=== PATIENT | female | born 1950 | race Caucasian/White ===

== ENCOUNTER → 2018-04-02 07:17 | Outpatient (CLI) | payer MEDICARE, BC, SELFPAY ==
[2018-04-02 09:26] LABS: Alanine Aminotransferase 31 IU/L (9-52); Albumin 3.9 g/dL (3.5-5.0); Albumin Globulin Ratio 1.2 (1.0-2.8); Alkaline Phosphatase 67 U/L (38-126); Aspartate Aminotransferase 21 IU/L (14-36); Bilirubin Total 0.5 mg/dL (0.2-1.3); Blood Urea Nitrogen 21 mg/dL (7-17); Calcium 9.3 mg/dL (8.4-10.2); Carbon Dioxide 30 mmol/L (22-32); Chloride 102 mmol/L (98-107); Cholesterol 189 mg/dL (140-199); Estimated Glomerular Filt Rate > 60.0 mL/min (>60); Globulin 3.2 g/dL (1.7-4.1); Glucose 87 mg/dL (80-110); HDL Cholesterol 53 mg/dL (40-60); HEMOLYSIS < 15 (0-50); LDL Cholesterol Calculated 107 mg/dL (<100); Potassium 4.2 mmol/L (3.4-5.1); Sodium 141 mmol/L (137-145); Total Protein 7.1 g/dL (6.3-8.2); Triglycerides 147 mg/dL (35-150)
== END ==
PROVIDERS: PCP Family Medicine; Visit Provider Family Medicine
DX: E78.5 Hyperlipidemia, unspecified (principal); M19.90 Unspecified osteoarthritis, unspecified site
CPT/HCPCS: 36415; 80053; 80061

== ENCOUNTER → 2018-09-07 07:58 | Outpatient (CLI) | payer MEDICARE, BC, SELFPAY ==
[2018-09-07 08:49] LABS: Appearance Urine UA CLEAR; Bilirubin Urine UA NEGATIVE (NEGATIVE); Color Urine UA YELLOW; Glucose Urine UA NEGATIVE (Normal); Ketones Urine UA NEGATIVE (NEGATIVE); Leukocyte Esterase Urine UA TRACE (NEGATIVE); Nitrite Urine UA NEGATIVE (Negative); Occult Blood Urine UA NEGATIVE (Negative); Protein Urine UA NEGATIVE (Negative); Specific Gravity Urine UA 1.015 (1.000-1.035); Urobilinogen Urine UA 0.2 E.U./dL (0.2)
[2018-09-07 08:53] LABS: Add Manual Diff / Slide Review NO; Basophils Percent Auto 0.9 % (0-2); Eosinophils Percent Auto 4.5 % (2-4); Hematocrit 37.8 % (36-46); Hemoglobin 12.6 g/dL (12.0-16.0); Lymphocytes Percent Auto 32.2 % (25-40); Mean Corpuscular HGB Conc 33.2 % (30-36); Mean Corpuscular Hemoglobin 29.3 PG (26-34); Mean Corpuscular Volume 88.1 fL (80-100); Monocytes Percent Auto 10.5 % (3-14); Neutrophils Absolute Auto 2500 /uL (3000-5900); Neutrophils Percent Auto 51.9 % (50-75); Platelet Count 300 X10^3/uL (150-400); Red Blood Cell Count 4.29 X10^6/uL (4.0-5.2); Red Cell Distribution Width 13.2 % (11.6-14.8); White Blood Cell Count 4.8 X10^3/uL (4.5-11.0)
[2018-09-07 09:02] LABS: Bacteria Urine Occasional (0-1); Culture Indicated Urine Specimen Cultured; RBC Urine 0-1/HPF (0-5/HPF); Squamous Epithelial Cell Urine 0-1 /HPF; WBC Urine 0-1/HPF (0-5/HPF)
[2018-09-07 09:23] LABS: Alanine Aminotransferase 24 IU/L (9-52); Albumin 3.8 g/dL (3.5-5.0); Albumin Globulin Ratio 1.3 (1.0-2.8); Alkaline Phosphatase 63 U/L (38-126); Aspartate Aminotransferase 20 IU/L (14-36); BUN Creatinine Ratio 27.5 (6-22); Bilirubin Total 0.3 mg/dL (0.2-1.3); Blood Urea Nitrogen 22 mg/dL (7-17); Calcium 9.1 mg/dL (8.4-10.2); Carbon Dioxide 31 mmol/L (22-32); Chloride 105 mmol/L (98-107); Cholesterol 187 mg/dL (140-199); Estimated Glomerular Filt Rate > 60.0 mL/min (>60); Globulin 2.9 g/dL (1.7-4.1); Glucose 88 mg/dL (80-110); HDL Cholesterol 55 mg/dL (40-60); HEMOLYSIS < 15 (0-50); LDL Cholesterol Calculated 111 mg/dL (<100); Potassium 4.6 mmol/L (3.4-5.1); Sodium 142 mmol/L (137-145); Total Protein 6.7 g/dL (6.3-8.2); Triglycerides 104 mg/dL (35-150)
[2018-09-07 09:48] LABS: Thyroid Stimulating Hormone 3.56 uIU/mL (0.47-4.68)
== END ==
PROVIDERS: PCP Family Medicine; Visit Provider Family Medicine
DX: E78.5 Hyperlipidemia, unspecified (principal); I10 Essential (primary) hypertension; Z51.81 Encounter for therapeutic drug level monitoring; E61.1 Iron deficiency
CPT/HCPCS: 36415; 80053; 80061; 81003; 81015; 82728; 84443; 85025; 87086

== ENCOUNTER → 2018-12-16 12:00 | Outpatient (CLI) | payer MEDICARE, BC, SELFPAY ==
--- NOTE | 2018-12-16 | DI.MG.S_ITS ---
BILATERAL DIGITAL SCREENING MAMMOGRAM 3D/2D WITH CAD: 12/16/2018 CLINICAL: Routine screening. Comparison is made to exams dated: 10/13/2017 mammogram, 09/13/2016 mammogram, and 09/12/2015 mammogram - [facility]. The tissue of both breasts is heterogeneously dense. This may lower the sensitivity of mammography. Current study was also evaluated with a Computer Aided Detection (CAD) system. No significant masses, calcifications, or other findings are seen in either breast. IMPRESSION: NEGATIVE There is no mammographic evidence of malignancy. A 1 year screening mammogram is recommended. This exam was interpreted at Station ID: [id number]. NOTE: For mammograms, a report in lay terms will be sent to the patient. Approximately 15% of breast malignancies will not be visualized mammographically. In the management of a palpable breast mass, a negative mammogram must not discourage biopsy of a clinically suspicious lesion. Electronically Signed By: Katelyn ricks/sabrina:12/16/2018 17:48:39 letter sent: Normal Exam ACR BI-RADS Category 1: Negative [id number]
== END ==
PROVIDERS: PCP Family Medicine; Visit Provider Family Medicine
DX: Z12.31 Encounter for screening mammogram for malignant neoplasm of breast (principal)
CPT/HCPCS: 77063; 77067

== ENCOUNTER 2019-02-12 11:15 | Outpatient (RCR) | payer MEDICARE, BC, SELFPAY ==
--- NOTE | 2018-11-03 17:30 | PT.OIE ---
Current Diagnoses Unilateral primary osteoarthritis, left knee (11/03/18) Past Medical History (Last Updated 10/09/18 @ 15:06 by Nelia Bennett) Asthma (Chronic) Benign disease of right breast (Chronic 1999) COPD (chronic obstructive pulmonary disease) (Chronic) Narcolepsy (Chronic) RLS (restless legs syndrome) (Chronic) History of benign breast biopsy (Resolved 05/01/00) Uterine cancer (Resolved ~2004) Past Surgical History (Last Updated 10/09/18 @ 15:06 by Nelia Bennett) History of breast lump/mass excision (Resolved 10/03/10) History of breast lump/mass excision (Resolved ~1999) History of colonoscopy (Resolved 11/25/05) History of tonsillectomy and adenoidectomy (Resolved ~1959) Status post breast lumpectomy (Resolved 2000) Status post hemorrhoidectomy (Resolved) Status post hysterectomy (Resolved 09/09/06) Status post tubal ligation (Resolved) Provider Visit Care Team Role Provider Type Bess Dunn DO Primary Care Provider Physician Specialty: Family Practice Address: [address] [place] [address], [phone] Email: [email or web address] Ashlee Harman PA-C Attending Provider Non-Staff Specialty: Medical Address: [address] [place] [address], [id number] Email: Physical Therapy Initial Evaluation PT-OP-A Visit Information Start: 11/03/18 13:06 Freq: Status: Active Protocol: Document 11/03/18 13:06 [facility] (Rec: 11/03/18 13:40 [facility] [email or web address]) Out-Patient Physical Therapy Visit Information Visit Information Visit Type Initial Evaluation Visit Note Leah is being seen for s/p uni lateral knee replacement on 11/26/2017 for the left knee Visit Start Time 11:15 Visit Stop Time 12:15 Total Visit Minutes 60 Visit Number 1 Evaluation Information Evaluation Date 11/03/18 PT-OP-B Current Condition Start: 11/03/18 13:06 Freq: Status: Active Protocol: Document 11/03/18 13:06 [facility] (Rec: 11/03/18 13:40 [facility] [email or web address]) Current Condition History of Current Condition Onset Date 11/26/2017 Current Complaints c/o swelling, pain, and stiffness s/p left partial knee replacement History of Current Condition left partial knee replacement for the lateral joint was performed on 11/26/[address] Nielsen. Leah went home the same day as surgery. She notes she was given a pamphlet of exercises but has not started doing them. She has not worn her compression stockings x 3 days now and she questions if she should return to wearing them due to a increase in edema in her left leg in the past few days. She is using both a cane for shorter distances and a fww for longer distances. She does have stairs in her house but does not need to use them at this time. Her next doctors appointment is 11/09/18 Treatment Goals Patient/Caregiver Goals to return to full ROM of her left LE, decrease pain, decrease swelling, and improve mobility Current Functional Impairments (Reported) Functional Limitations- ADL's limited in activities that require bending, lifting, walking up and down stairs Functional Limitations- Mobility/Gait limited with mobility and gait , using a spc as well as FWW for assistance PT-OP-C Subjective Start: 11/03/18 13:06 Freq: Status: Active Protocol: Document 11/03/18 13:06 [facility] (Rec: 11/03/18 13:40 [facility] [email or web address]) OP-PT Pain Assessment Pain Assessment Grid Paper Pain Assessment Grid Completed Yes Location left knee Pain Location Details left knee pain and c/o swelling and tightness into the left ankle Intensity 2 Scale Used Numeric (1 - 10) Home Pain Medication Use Pain Medications Used Yes Home Pain Medication Frequency the patient is using both oxycodone and Ibuprofen PT-OP-F Manual Assessment Start: 11/03/18 13:06 Freq: Status: Active Protocol: Document 11/03/18 13:06 [facility] (Rec: 11/03/18 13:40 [facility] [email or web address]) Manual Assessments Soft Tissue Assessment Soft Tissue Mobility Assessment swelling noted from the left knee to the ankle and foot with pitting edema in the left dorsal foot PT-OP-G Mobility & Gait Start: 11/03/18 13:06 Freq: Status: Active Protocol: Document 11/03/18 17:29 [facility] (Rec: 11/03/18 17:30 [facility] [email or web address]) OP Gait Assessment Gait Gait Assistance Required: Independent Assistive Devices Assistive Device Straight Cane Gait Deviations General Gait Pattern Antalgic Decreased Stride Length Flexed Trunk Step-to Gait Factors Limiting Gait Function Factors Limiting Gait Function Decreased Activity Tolerance Decreased Strength Limited Range of Motion Pain Stair Climbing Evaluation Technique/Endurance Stair Climbing Technique Step to Step Comments Stair Climbing Comments pain with stairs PT-OP-K Range of Motion Start: 11/03/18 13:06 Freq: Status: Active Protocol: Document 11/03/18 13:06 [facility] (Rec: 11/03/18 13:40 [facility] [email or web address]) Knee Goniometric Range of Motion Knee Measured in Degrees Right Knee ROM WFL Yes Left Knee ROM WFL No Patient Position Supine Flexion Active (degrees) 50 Flexion Passive (degrees) 75 Extension Active (degrees) 15 Extension Passive (degrees) 12 Knee ROM Limitations Knee ROM Limitations Soft Tissue Tightness Pain Swelling Comments there is 7 cm difference in circumference at the joint line today between left and right knees. 47 cm left and 40 cm right PT-OP-M Strength Start: 11/03/18 13:06 Freq: Status: Active Protocol: Document 11/03/18 13:06 [facility] (Rec: 11/03/18 13:40 [facility] [email or web address]) Knee Strength Knee Manual Muscle Testing Left Flexion (S2) 2+ Poor+ Extension (L3) 2 Poor PT-OP-Q Treatments Start: 11/03/18 13:06 Freq: Status: Active Protocol: Document 11/03/18 13:06 [facility] (Rec: 11/03/18 13:40 [facility] [email or web address]) Therapeutic Exercises Supine Exercises 3 Supine Exercise Name supine ball rolls Side bilateral Reps/Minutes 20 reps Comments pt has a ball at home, ball rolls were easier than heel slides for her 2 Supine Exercise Name heel slides Side left Reps/Minutes 10 reps 1 Supine Exercise Name quad sets Side left Equipment Used towel roll under the knee Reps/Minutes 10 reps holding 5 seconds Sitting Exercises 1 Sitting Exercise Name seated knee flexion and knee extension Side left Reps/Minutes 10 reps each Comments educated in using right leg as a assist for flexion and extension Manual Therapy Treatment Soft Tissue Mobilization 1 Body Location left LE, edema reduction STM with LE elevated Intensity/Depth Superficial Body Position Hooklying PT-OP-R Modalities Start: 11/03/18 13:06 Freq: Status: Active Protocol: Document 11/03/18 13:06 [facility] (Rec: 11/03/18 13:40 [facility] [email or web address]) Hot Pack/Cold Pack Treatment cryo cuff Location left knee Patient Position Hooklying Treatment Duration (minutes) 15 Patient Tolerance Good Comments with LE elevated PT-OP-T Assessment and Plan Start: 11/03/18 13:06 Freq: Status: Active Protocol: Document 11/03/18 17:13 [facility] (Rec: 11/03/18 17:29 [facility] [email or web address]) Physical Therapy Assessment Goals Four Impairment impaired gait Shelter Goal (LTG) The patient is demonstrating an improved gait pattern without use of a assistive device and improved heel strike. She is able to go up and down stairs without pain LTG Duration 6-8 weeks Three Impairment swelling and edema of the left LE from the knee to the foot Short Term Goal (STG) Decrease swelling in the left LE with manual therapy techniques, modalities and ther ex. Currently the left (joint line is 47 cm and the right is 40 cm) STG Duration 4-5 weeks Two Impairment Decreased strength of the left knee Shelter Goal (LTG) Improve strength of the left knee including the ability to fully perform a quad squeeze in full knee extension and the patient is able to demonstrate functional strength of left knee strength with a standing squat LTG Duration 6-8 weeks One Impairment Decreased left knee ROM Short Term Goal (STG) improve ROM of the left knee from where it is now at( 50 AROM and 75 PROM) to 120 deg AROM flexion or better and Leah is able to fully extend her knee to 0 STG Duration 6 weeks
--- NOTE | 2018-11-03 17:51 | PT.OPPOC ---
Current Diagnoses Unilateral primary osteoarthritis, left knee (11/03/18) Provider Visit Care Team Role Provider Type Bess Dunn DO Primary Care Provider Physician Specialty: Family Practice Address: [facility] [place], [address] Email: [email or web address] Ashlee Harman PA-C Attending Provider Non-Staff Specialty: Medical Address: [address] [place] [address], [id number] Email: Plan Of Care PT-OP-T Assessment and Plan Start: 11/03/18 13:06 Freq: Status: Active Protocol: Document 11/03/18 13:06 [facility] (Rec: 11/03/18 17:29 [facility] [email or web address]) Physical Therapy Assessment Goals Four Impairment impaired gait Usp Goal (LTG) The patient is demonstrating an improved gait pattern without use of a assistive device and improved heel strike. She is able to go up and down stairs without pain LTG Duration 6-8 weeks Three Impairment swelling and edema of the left LE from the knee to the foot Short Term Goal (STG) Decrease swelling in the left LE with manual therapy techniques, modalities and ther ex. Currently the left (joint line is 47 cm and the right is 40 cm) STG Duration 4-5 weeks Two Impairment Decreased strength of the left knee Usp Goal (LTG) Improve strength of the left knee including the ability to fully perform a quad squeeze in full knee extension and the patient is able to demonstrate functional strength of left knee strength with a standing squat LTG Duration 6-8 weeks One Impairment Decreased left knee ROM Short Term Goal (STG) improve ROM of the left knee from where it is now at( 50 AROM and 75 PROM) to 120 deg AROM flexion or better and Leah is able to fully extend her knee to 0 STG Duration 6 weeks Assessment Summary Assessment Leah presents to physical therapy today at 8 days s/p her partial knee replacement on her left LE. She is using a spc today but also has her walker with her and has been using the walker when needed. She reports increased left LE swelling the past 2 days and this is concerning to her. She notes she has not yet started back on her usual medications and has questions about restarting her medications. I did advise her to discuss this concern with her doctor. She does have a good amount of swelling in the left LE with some pitting edema in her left foot. She has not been wearing her compression hoes so I did put these on for her today and recommended that she continue to wear them. She has a pamplet of exercises from following surgery however she had not started these yet. She was instructed in ROM exercises today and quadriceps isolations. Her flexion ROM is limited at 50 PROM but I was able to get her to 75 deg flexion after some manual treatment. The goal will be to reduce the swelling, improve ROM and strength. She has a follow up with Dr. Nielsen on 11/09/18. Physical Therapy Plan Frequency and Duration Frequency of Treatment 2x/Week Duration of Treatment 8 Plan of Care Start Date 11/03/18 Plan of Care End Date 12/29/18 Therapeutic Interventions Therapeutic Interventions Gait Training Home Exercise Program Manual Therapy Neuromuscular Re-education Patient/Caregiver Education Self-Care/Home Management Soft Tissue Mobilization Therapeutic Exercises Modalities Cold Pack/Ice Massage Next Visit Focus/Plan Next Note Type Treatment Note Next Visit Plan trial of recumbant bicycle next visit and work to progress knee ROM and strength and decrease swelling Plan of Care Dates Plan of Care Start Date 11/03/18 Plan of Care End Date 12/29/18 Please Sign and Return: I have reviewed this Plan of Care and certify that the skilled therapy services above are required to meet the patient?s needs. Physician Signature Date Printed Name and Credentials Clinical Instructor Signature Printed Name and Credentials
--- NOTE | 2018-11-03 17:52 | PT.OIE ---
Current Diagnoses Unilateral primary osteoarthritis, left knee (11/03/18) Past Medical History (Last Updated 10/09/18 @ 15:06 by Nelia Bennett) Asthma (Chronic) Benign disease of right breast (Chronic 1999) COPD (chronic obstructive pulmonary disease) (Chronic) Narcolepsy (Chronic) RLS (restless legs syndrome) (Chronic) History of benign breast biopsy (Resolved 05/01/00) Uterine cancer (Resolved ~2004) Past Surgical History (Last Updated 10/09/18 @ 15:06 by Nelia Bennett) History of breast lump/mass excision (Resolved 10/03/10) History of breast lump/mass excision (Resolved ~1999) History of colonoscopy (Resolved 11/25/05) History of tonsillectomy and adenoidectomy (Resolved ~1959) Status post breast lumpectomy (Resolved 2000) Status post hemorrhoidectomy (Resolved) Status post hysterectomy (Resolved 09/09/06) Status post tubal ligation (Resolved) Provider Visit Care Team Role Provider Type Bess Dunn DO Primary Care Provider Physician Specialty: Family Practice Address: [address] [place] [address], [id number] Email: [email or web address] Ashlee Harman PA-C Attending Provider Non-Staff Specialty: Medical Address: [address] [place] [address], [id number] Email: Physical Therapy Initial Evaluation PT-OP-A Visit Information Start: 11/03/18 13:06 Freq: Status: Active Protocol: Document 11/03/18 13:06 [facility] (Rec: 11/03/18 13:40 [facility] [email or web address]) Out-Patient Physical Therapy Visit Information Visit Information Visit Type Initial Evaluation Visit Note Leah is being seen for s/p uni lateral knee replacement on 11/26/2017 for the left knee Visit Start Time 11:15 Visit Stop Time 12:15 Total Visit Minutes 60 Visit Number 1 Evaluation Information Evaluation Date 11/03/18 PT-OP-B Current Condition Start: 11/03/18 13:06 Freq: Status: Active Protocol: Document 11/03/18 13:06 [facility] (Rec: 11/03/18 13:40 [facility] [email or web address]) Current Condition History of Current Condition Onset Date 11/26/2017 Current Complaints c/o swelling, pain, and stiffness s/p left partial knee replacement History of Current Condition left partial knee replacement for the lateral joint was performed on 11/26/[address] Nielsen. Leah went home the same day as surgery. She notes she was given a pamplet of exercises but has not started doing them. She has not worn her compression stockings x 3 days now and she questions if she should return to wearing them due to a increase in edema in her left leg in the past few days. She is using both a cane for shorter distances and a fww for longer distances. She does have stairs in her house but does not need to use them at this time. Her next doctors appointment is 11/09/18 Treatment Goals Patient/Caregiver Goals to return to full ROM of her left LE, decrease pain, decrease swelling, and improve mobility Current Functional Impairments (Reported) Functional Limitations- ADL's limited in activies that require bending, lifting, walking up and down stairs Functional Limitations- Mobility/Gait limited with mobility and gait , using a spc as well as FWW for assistance PT-OP-C Subjective Start: 11/03/18 13:06 Freq: Status: Active Protocol: Document 11/03/18 13:06 [facility] (Rec: 11/03/18 13:40 [facility] [email or web address]) OP-PT Pain Assessment Pain Assessment Grid Paper Pain Assessment Grid Completed Yes Location left knee Pain Location Details left knee pain and c/o swelling and tightness into the left ankle Intensity 2 Scale Used Numeric (1 - 10) Home Pain Medication Use Pain Medications Used Yes Home Pain Medication Frequency the patient is using both oxycodone and Ibuprofen PT-OP-F Manual Assessment Start: 11/03/18 13:06 Freq: Status: Active Protocol: Document 11/03/18 13:06 [facility] (Rec: 11/03/18 13:40 [facility] [email or web address]) Manual Assessments Soft Tissue Assessment Soft Tissue Mobility Assessment swelling noted from the left knee to the ankle and foot with pitting edema in the left dorsal foot PT-OP-G Mobility & Gait Start: 11/03/18 13:06 Freq: Status: Active Protocol: Document 11/03/18 17:29 [facility] (Rec: 11/03/18 17:30 [facility] [email or web address]) OP Gait Assessment Gait Gait Assistance Required: Independent Assistive Devices Assistive Device Straight Cane Gait Deviations General Gait Pattern Antalgic Decreased Stride Length Flexed Trunk Step-to Gait Factors Limiting Gait Function Factors Limiting Gait Function Decreased Activity Tolerance Decreased Strength Limited Range of Motion Pain Stair Climbing Evaluation Technique/Endurance Stair Climbing Technique Step to Step Comments Stair Climbing Comments pain with stairs PT-OP-K Range of Motion Start: 11/03/18 13:06 Freq: Status: Active Protocol: Document 11/03/18 13:06 [facility] (Rec: 11/03/18 13:40 [facility] [email or web address]) Knee Goniometric Range of Motion Knee Measured in Degrees Right Knee ROM WFL Yes Left Knee ROM WFL No Patient Position Supine Flexion Active (degrees) 50 Flexion Passive (degrees) 75 Extension Active (degrees) 15 Extension Passive (degrees) 12 Knee ROM Limitations Knee ROM Limitations Soft Tissue Tightness Pain Swelling Comments there is 7 cm difference in circumference at the joint line today between left and right knees. 47 cm left and 40 cm right PT-OP-M Strength Start: 11/03/18 13:06 Freq: Status: Active Protocol: Document 11/03/18 13:06 [facility] (Rec: 11/03/18 13:40 [facility] [email or web address]) Knee Strength Knee Manual Muscle Testing Left Flexion (S2) 2+ Poor+ Extension (L3) 2 Poor PT-OP-Q Treatments Start: 11/03/18 13:06 Freq: Status: Active Protocol: Document 11/03/18 13:06 [facility] (Rec: 11/03/18 13:40 [facility] [email or web address]) Therapeutic Exercises Supine Exercises 3 Supine Exercise Name supine ball rolls Side bilateral Reps/Minutes 20 reps Comments pt has a ball at home, ball rolls were easier than heel slides for her 2 Supine Exercise Name heel slides Side left Reps/Minutes 10 reps 1 Supine Exercise Name quad sets Side left Equipment Used towel roll under the knee Reps/Minutes 10 reps holding 5 seconds Sitting Exercises 1 Sitting Exercise Name seated knee flexion and knee extension Side left Reps/Minutes 10 reps each Comments educated in using right leg as a assist for flexion and extension Manual Therapy Treatment Soft Tissue Mobilization 1 Body Location left LE, edema reduction STM with LE elevated Intensity/Depth Superficial Body Position Hooklying PT-OP-R Modalities Start: 11/03/18 13:06 Freq: Status: Active Protocol: Document 11/03/18 13:06 [facility] (Rec: 11/03/18 13:40 [facility] [email or web address]) Hot Pack/Cold Pack Treatment cryo cuff Location left knee Patient Position Hooklying Treatment Duration (minutes) 15 Patient Tolerance Good Comments with LE elevated PT-OP-T Assessment and Plan Start: 11/03/18 13:06 Freq: Status: Active Protocol: Document 11/03/18 13:06 [facility] (Rec: 11/03/18 17:29 [facility] [email or web address]) Physical Therapy Assessment Goals Four Impairment impaired gait Half-Way Goal (LTG) The patient is demonstrating an improved gait pattern without use of a assistive device and improved heel strike. She is able to go up and down stairs without pain LTG Duration 6-8 weeks Three Impairment swelling and edema of the left LE from the knee to the foot Short Term Goal (STG) Decrease swelling in the left LE with manual therapy techniques, modalities and ther ex. Currently the left (joint line is 47 cm and the right is 40 cm) STG Duration 4-5 weeks Two Impairment Decreased strength of the left knee Fiscal Accountant Goal (LTG) Improve strength of the left knee including the ability to fully perform a quad squeeze in full knee extension and the patient is able to demonstrate functional strengh of left knee strength with a standing squat LTG Duration 6-8 weeks One Impairment Decreased left knee ROM Short Term Goal (STG) improve ROM of the left knee from where it is now at( 50 AROM and 75 PROM) to 120 deg AROM flexion or better and Leah is able to fully extend her knee to 0 STG Duration 6 weeks Assessment Summary Assessment Leah presents to physical therapy today at 8 days s/p her partial knee replacement on her left LE. She is using a spc today but also has her walker with her and has been using the walker when needed. She reports increased left LE swelling the past 2 days and this is concerning to her. She notes she has not yet started back on her usual medications and has questions about restarting her medications. I did advise her to discuss this concern with her doctor. She does have a good amount of swelling in the left LE with some pitting edema in her left foot. She has not been wearing her compression hoes so I did put these on for her today and recommended that she continue to wear them. She has a pamphlet of exercises from following surgery however she had not started these yet. She was instructed in ROM exercises today and quadriceps isolations. Her flexion ROM is limited at 50 PROM but I was able to get her to 75 deg flexion after some manual treatment. The goal will be to reduce the swelling, improve ROM and strength. She has a follow up with Dr. Nielsen on 11/09/18. Physical Therapy Plan Frequency and Duration Frequency of Treatment 2x/Week Duration of Treatment 8 Plan of Care Start Date 11/03/18 Plan of Care End Date 12/29/18 Therapeutic Interventions Therapeutic Interventions Gait Training Home Exercise Program Manual Therapy Neuromuscular Re-education Patient/Caregiver Education Self-Care/Home Management Soft Tissue Mobilization Therapeutic Exercises Modalities Cold Pack/Ice Massage Next Visit Focus/Plan Next Note Type Treatment Note Next Visit Plan trial of recumbant bicycle next visit and work to progress knee ROM and strength and decrease swelling
--- NOTE | 2018-11-06 12:32 | PT.OTN ---
Current Diagnoses Unilateral primary osteoarthritis, left knee (11/06/18) Physical Therapy Treatment Note PT-OP-A Visit Information Start: 11/03/18 13:06 Freq: Status: Active Protocol: Document 11/06/18 11:20 LRN (Rec: 11/06/18 12:31 LRN [id number]) Out-Patient Physical Therapy Visit Information Visit Information Visit Type Treatment Note Visit Note Leah is being seen for s/p uni lateral knee replacement on 11/26/2017 for the left knee Visit Start Time 11:20 Visit Stop Time 12:15 Total Visit Minutes 55 Visit Number 2 Number of MH TEACHER Visits 0 Evaluation Information Evaluation Date 11/03/18 PT-OP-B Current Condition Start: 11/03/18 13:06 Freq: Status: Active Protocol: Document 11/03/18 13:06 [facility] (Rec: 11/03/18 13:40 [facility] [email or web address]) Current Condition History of Current Condition Onset Date 11/26/2017 Current Complaints c/o swelling, pain, and stiffness s/p left partial knee replacement History of Current Condition left partial knee replacement for the lateral joint was performed on 11/26/[address] Nielsen. Leah went home the same day as surgery. She notes she was given a pamplet of exercises but has not started doing them. She has not worn her compression stockings x 3 days now and she questions if she should return to wearing them due to a increase in edema in her left leg in the past few days. She is using both a cane for shorter distances and a fww for longer distances. She does have stairs in her house but does not need to use them at this time. Her next doctors appointment is 11/09/18 Treatment Goals Patient/Caregiver Goals to return to full ROM of her left LE, decrease pain, decrease swelling, and improve mobility Current Functional Impairments (Reported) Functional Limitations- ADL's limited in activities that require bending, lifting, walking up and down stairs Functional Limitations- Mobility/Gait limited with mobility and gait , using a spc as well as FWW for assistance PT-OP-C Subjective Start: 11/03/18 13:06 Freq: Status: Active Protocol: Document 11/06/18 11:20 LRN (Rec: 11/06/18 12:31 LRN [id number]) OP-PT Subjective Patient Comments Patient Comments States she is functioning better, has more flexibility. Having constipation issues. R hip/thigh laterally has numbness and the hip is bothering her. PT-OP-F Manual Assessment Start: 11/03/18 13:06 Freq: Status: Active Protocol: Document 11/03/18 13:06 [facility] (Rec: 11/03/18 13:40 [facility] [email or web address]) Manual Assessments Soft Tissue Assessment Soft Tissue Mobility Assessment swelling noted from the left knee to the ankle and foot with pitting edema in the left dorsal foot PT-OP-G Mobility & Gait Start: 11/03/18 13:06 Freq: Status: Active Protocol: Document 11/03/18 17:29 [facility] (Rec: 11/03/18 17:30 [facility] [email or web address]) OP Gait Assessment Gait Gait Assistance Required: Independent Assistive Devices Assistive Device Straight Cane Gait Deviations General Gait Pattern Antalgic Decreased Stride Length Flexed Trunk Step-to Gait Factors Limiting Gait Function Factors Limiting Gait Function Decreased Activity Tolerance Decreased Strength Limited Range of Motion Pain Stair Climbing Evaluation Technique/Endurance Stair Climbing Technique Step to Step Comments Stair Climbing Comments pain with stairs PT-OP-K Range of Motion Start: 11/03/18 13:06 Freq: Status: Active Protocol: Document 11/06/18 11:20 LRN (Rec: 11/06/18 12:31 LRN [id number]) Knee Goniometric Range of Motion Knee Measured in Degrees Left Patient Position Supine Flexion Active (degrees) 70 Flexion Passive (degrees) 80 PT-OP-M Strength Start: 11/03/18 13:06 Freq: Status: Active Protocol: Document 11/03/18 13:06 [facility] (Rec: 11/03/18 13:40 [facility] [email or web address]) Knee Strength Knee Manual Muscle Testing Left Flexion (S2) 2+ Poor+ Extension (L3) 2 Poor PT-OP-Q Treatments Start: 11/03/18 13:06 Freq: Status: Active Protocol: Document 11/06/18 11:20 LRN (Rec: 11/06/18 12:31 LRN [id number]) Therapeutic Exercises Supine Exercises 4 Supine Exercise Name Lymph ex for s/p TKA Side left Reps/Minutes 10x each motion 3 Supine Exercise Name supine ball rolls Side bilateral Reps/Minutes 20 reps Comments pt has a ball at home, ball rolls were easier than heel slides for her 2 Supine Exercise Name heel slides Side left Reps/Minutes 10 reps 1 Supine Exercise Name quad sets Side left Equipment Used towel roll under the knee Reps/Minutes 10 reps holding 5 seconds Sitting Exercises 1 Sitting Exercise Name seated knee flexion and knee extension Side left Reps/Minutes 10 reps each Comments educated in using right leg as a assist for flexion and extension Manual Therapy Treatment Soft Tissue Mobilization 1 Body Location left LE, edema reduction STM with LE elevated Intensity/Depth Superficial Body Position Hooklying Self-Care/Home Management Treatment Education Patient Education Home Exercise Program Activities Self-Care/Home Management Activities Issued & reviewed HEP of lymph ex's PT-OP-R Modalities Start: 11/03/18 13:06 Freq: Status: Active Protocol: Document 11/06/18 11:20 LRN (Rec: 11/06/18 12:31 LRN [id number]) Hot Pack/Cold Pack Treatment cryo cuff Location left knee Patient Position Hooklying Treatment Duration (minutes) 15 Patient Tolerance Good Comments with LE elevated PT-OP-T Assessment and Plan Start: 11/03/18 13:06 Freq: Status: Active Protocol: Document 11/06/18 11:20 LRN (Rec: 11/06/18 12:31 LRN [id number]) Physical Therapy Assessment Assessment Summary Assessment Pt is progressing well on her s/p TKA rehab with an increase in knee flex to 80 deg's passively. She had not worn her compressive stocking today . Her LLE was swollen; therefore held use of bike to start, started with massage for edema reduction. Physical Therapy Plan Frequency and Duration Frequency of Treatment 2x/Week Duration of Treatment 8 Plan of Care Start Date 11/03/18 Plan of Care End Date 12/29/18 Next Visit Focus/Plan Next Note Type Treatment Note Next Visit Plan Try recumbent bike to start. Review HEP last issued. Progress knee ROM, strength and decreased swelling. Add gait training.
--- NOTE | 2018-11-10 12:38 | PT.OTN ---
Current Diagnoses Unilateral primary osteoarthritis, left knee (11/10/18) Physical Therapy Treatment Note PT-OP-A Visit Information Start: 11/03/18 13:06 Freq: Status: Active Protocol: Document 11/10/18 12:17 [facility] (Rec: 11/10/18 12:38 [facility] [email or web address]) Out-Patient Physical Therapy Visit Information Visit Information Visit Type Treatment Note Visit Start Time 11:15 Visit Stop Time 12:15 Total Visit Minutes 60 Visit Number 3 Number of CRITICAL CARE PHYSICIAN Visits 0 Evaluation Information Evaluation Date 11/03/18 PT-OP-B Current Condition Start: 11/03/18 13:06 Freq: Status: Active Protocol: Document 11/03/18 13:06 [facility] (Rec: 11/03/18 13:40 [facility] [email or web address]) Current Condition History of Current Condition Onset Date 11/26/2017 Current Complaints c/o swelling, pain, and stiffness s/p left partial knee replacement History of Current Condition left partial knee replacement for the lateral joint was performed on 11/26/[address] Nielsen. Leah went home the same day as surgery. She notes she was given a pamplet of exercises but has not started doing them. She has not worn her compression stockings x 3 days now and she questions if she should return to wearing them due to a increase in edema in her left leg in the past few days. She is using both a cane for shorter distances and a fww for longer distances. She does have stairs in her house but does not need to use them at this time. Her next doctors appointment is 11/09/18 Treatment Goals Patient/Caregiver Goals to return to full ROM of her left LE, decrease pain, decrease swelling, and improve mobility Current Functional Impairments (Reported) Functional Limitations- ADL's limited in activies that require bending, lifting, walking up and down stairs Functional Limitations- Mobility/Gait limited with mobility and gait , using a spc as well as FWW for assistance PT-OP-C Subjective Start: 11/03/18 13:06 Freq: Status: Active Protocol: Document 11/10/18 12:17 [facility] (Rec: 11/10/18 12:38 [facility] [email or web address]) OP-PT Subjective Patient Comments Patient Comments Leah notes her knee is doing much better over all and she is over the constipation issues. She is noting right sided Low back and hip discomfort though PT-OP-F Manual Assessment Start: 11/03/18 13:06 Freq: Status: Active Protocol: Document 11/03/18 13:06 [facility] (Rec: 11/03/18 13:40 [facility] [email or web address]) Manual Assessments Soft Tissue Assessment Soft Tissue Mobility Assessment swelling noted from the left knee to the ankle and foot with pitting edema in the left dorsal foot PT-OP-G Mobility & Gait Start: 11/03/18 13:06 Freq: Status: Active Protocol: Document 11/03/18 17:29 [facility] (Rec: 11/03/18 17:30 [facility] [email or web address]) OP Gait Assessment Gait Gait Assistance Required: Independent Assistive Devices Assistive Device Straight Cane Gait Deviations General Gait Pattern Antalgic Decreased Stride Length Flexed Trunk Step-to Gait Factors Limiting Gait Function Factors Limiting Gait Function Decreased Activity Tolerance Decreased Strength Limited Range of Motion Pain Stair Climbing Evaluation Technique/Endurance Stair Climbing Technique Step to Step Comments Stair Climbing Comments pain with stairs PT-OP-K Range of Motion Start: 11/03/18 13:06 Freq: Status: Active Protocol: Document 11/06/18 11:20 LRN (Rec: 11/06/18 12:31 LRN [id number]) Knee Goniometric Range of Motion Knee Measured in Degrees Left Patient Position Supine Flexion Active (degrees) 70 Flexion Passive (degrees) 80 PT-OP-M Strength Start: 11/03/18 13:06 Freq: Status: Active Protocol: Document 11/03/18 13:06 [facility] (Rec: 11/03/18 13:40 [facility] [email or web address]) Knee Strength Knee Manual Muscle Testing Left Flexion (S2) 2+ Poor+ Extension (L3) 2 Poor PT-OP-Q Treatments Start: 11/03/18 13:06 Freq: Status: Active Protocol: Document 11/10/18 12:17 [facility] (Rec: 11/10/18 12:38 [facility] [email or web address]) Cardio Equipment Bicycle (Upright) Duration (Minutes) 8 Resistance 0 Seat Position 4 Other able to make full resolution forward and back Therapeutic Exercises Supine Exercises 6 Supine Exercise Name bridges Reps/Minutes 3 x 10 reps 5 Supine Exercise Name SLR Reps/Minutes 3 x 10 reps 3 Supine Exercise Name supine ball rolls Side bilateral Reps/Minutes 20 reps Comments pt has a ball at home, ball rolls were easier than heel slides for her 2 Supine Exercise Name heel slides Side left Reps/Minutes 10 reps 1 Supine Exercise Name quad sets Side left Equipment Used towel roll under the knee Reps/Minutes 10 reps holding 5 seconds Prone Exercises 1 Prone Exercise Name prone knee flexion Reps/Minutes x 10 reps Comments pt stayed in the prone position for manual stretching following the exercis Sitting Exercises 1 Sitting Exercise Name seated knee flexion and knee extension Side left Reps/Minutes 10 reps each Comments educated in using right leg as a assist for flexion and extension Gait Training Gait Activity 1 Description gait training with single point cane in right hand Manual Therapy Treatment Soft Tissue Mobilization 2 Body Location prone quad stretch, manual ITB release Comments manual stretching into flexion in prone and manual release for the ITB PT-OP-R Modalities Start: 11/03/18 13:06 Freq: Status: Active Protocol: Document 11/10/18 12:17 [facility] (Rec: 11/10/18 12:38 [facility] [email or web address]) Hot Pack/Cold Pack Treatment cryo cuff Location left knee Patient Position Hooklying Treatment Duration (minutes) 15 Patient Tolerance Good Comments with LE elevated PT-OP-T Assessment and Plan Start: 11/03/18 13:06 Freq: Status: Active Protocol: Document 11/10/18 12:17 [facility] (Rec: 11/10/18 12:38 [facility] [email or web address]) Physical Therapy Assessment Assessment Summary Assessment improved flexion to 95 degress today and 5 degress extension at the end of treatment. Able to make a full resolution on the upright bike and tolerate manual stretching in prone. Reviewed gait with spc today as her right hip has been bothering her. Physical Therapy Plan Frequency and Duration Frequency of Treatment 2x/Week Duration of Treatment 8 Plan of Care Start Date 11/03/18 Plan of Care End Date 12/29/18 Therapeutic Interventions Therapeutic Interventions Gait Training Home Exercise Program Manual Therapy Neuromuscular Re-education Patient/Caregiver Education Self-Care/Home Management Soft Tissue Mobilization Therapeutic Exercises Modalities Cold Pack/Ice Massage Next Visit Focus/Plan Next Note Type Treatment Note Next Visit Plan bike, upright was tolerated well, begin shuttle and continue to progress ROM, strength and decreased swelling
--- NOTE | 2018-11-20 12:06 | PT.OTN ---
Current Diagnoses Unilateral primary osteoarthritis, left knee (11/20/18) Physical Therapy Treatment Note PT-OP-A Visit Information Start: 11/03/18 13:06 Freq: Status: Active Protocol: Document 11/20/18 10:39 [facility] (Rec: 11/20/18 12:04 LRN [id number]) Out-Patient Physical Therapy Visit Information Visit Information Visit Type Treatment Note Visit Start Time 10:39 Visit Stop Time 11:36 Total Visit Minutes 57 Visit Number 4 Number of LINOLEUM LAYER Visits 0 Evaluation Information Evaluation Date 11/03/18 PT-OP-B Current Condition Start: 11/03/18 13:06 Freq: Status: Active Protocol: Document 11/03/18 13:06 [facility] (Rec: 11/03/18 13:40 [facility] [email or web address]) Current Condition History of Current Condition Onset Date 11/26/2017 Current Complaints c/o swelling, pain, and stiffness s/p left partial knee replacement History of Current Condition left partial knee replacement for the lateral joint was performed on 11/26/[address] Nielsen. Leah went home the same day as surgery. She notes she was given a pamplet of exercises but has not started doing them. She has not worn her compression stockings x 3 days now and she questions if she should return to wearing them due to a increase in edema in her left leg in the past few days. She is using both a cane for shorter distances and a fww for longer distances. She does have stairs in her house but does not need to use them at this time. Her next doctors appointment is 11/09/18 Treatment Goals Patient/Caregiver Goals to return to full ROM of her left LE, decrease pain, decrease swelling, and improve mobility Current Functional Impairments (Reported) Functional Limitations- ADL's limited in activies that require bending, lifting, walking up and down stairs Functional Limitations- Mobility/Gait limited with mobility and gait , using a spc as well as FWW for assistance PT-OP-C Subjective Start: 11/03/18 13:06 Freq: Status: Active Protocol: Document 11/20/18 10:39 [facility]N (Rec: 11/20/18 12:04 LRN [id number]) OP-PT Subjective Patient Comments Patient Comments States after the last session she couldn't walk the next day due to primarily R groin and hip. PT-OP-F Manual Assessment Start: 11/03/18 13:06 Freq: Status: Active Protocol: Document 11/03/18 13:06 [facility] (Rec: 11/03/18 13:40 [facility] [email or web address]) Manual Assessments Soft Tissue Assessment Soft Tissue Mobility Assessment swelling noted from the left knee to the ankle and foot with pitting edema in the left dorsal foot PT-OP-G Mobility & Gait Start: 11/03/18 13:06 Freq: Status: Active Protocol: Document 11/03/18 17:29 [facility] (Rec: 11/03/18 17:30 [facility] [email or web address]) OP Gait Assessment Gait Gait Assistance Required: Independent Assistive Devices Assistive Device Straight Cane Gait Deviations General Gait Pattern Antalgic Decreased Stride Length Flexed Trunk Step-to Gait Factors Limiting Gait Function Factors Limiting Gait Function Decreased Activity Tolerance Decreased Strength Limited Range of Motion Pain Stair Climbing Evaluation Technique/Endurance Stair Climbing Technique Step to Step Comments Stair Climbing Comments pain with stairs PT-OP-K Range of Motion Start: 11/03/18 13:06 Freq: Status: Active Protocol: Document 11/06/18 11:20 [facility]N (Rec: 11/06/18 12:31 LRN [id number]) Knee Goniometric Range of Motion Knee Measured in Degrees Left Patient Position Supine Flexion Active (degrees) 70 Flexion Passive (degrees) 80 PT-OP-M Strength Start: 11/03/18 13:06 Freq: Status: Active Protocol: Document 11/03/18 13:06 [facility] (Rec: 11/03/18 13:40 [facility] [email or web address]) Knee Strength Knee Manual Muscle Testing Left Flexion (S2) 2+ Poor+ Extension (L3) 2 Poor PT-OP-Q Treatments Start: 11/03/18 13:06 Freq: Status: Active Protocol: Document 11/20/18 10:39 LRN (Rec: 11/20/18 12:04 LRN [id number]) Therapeutic Exercises Supine Exercises BKFO Side bilateral Resistance Lev 2 Equipment Used T-Band Reps/Minutes 3' 5 Supine Exercise Name See sitting knee ext ex 2 Supine Exercise Name See seated knee flexion Sitting Exercises knee flex/ex strengthening Sitting Exercise Name Abraham knee ext Resistance Lev 2 T-Band Reps/Minutes 20 x 1 Sitting Exercise Name seated knee flexion stretch Side bilateral Reps/Minutes 10 reps each Comments Shifting hips forward with feet on ground Therapeutic Activity Therapeutic Activity Postural training Name Transferring up/down from ex equipment & sitting Comments Training for core stabilization. Transfer training Name Sup>Sit>Stand, Rolling Comments Focus on core stabilization Manual Therapy Treatment Joint Mobilizations Lumbar Joint L3-L5 Direction L rot to correct for R rotated L/S Grade II Body Position Prone Reps/Duration 8' Comments Oscillations Manual Techniques Low back Type STM Body Location R lumbar paraspinals Body Position Prone Comments 5' Anterior groin Type Palpation mobilization Body Position Supine Reps/Duration 3' Comments Tender R inguinal ligament. Self-Care/Home Management Treatment Education Patient Education Home Exercise Program Activities Self-Care/Home Management Activities Issued handout for Abraham BKFO ex for core stab. PT-OP-R Modalities Start: 11/03/18 13:06 Freq: Status: Active Protocol: Document 11/20/18 10:39 [facility]N (Rec: 11/20/18 12:05 LRN [id number]) Hot Pack/Cold Pack Treatment cryo cuff Location left knee Patient Position Hooklying Treatment Duration (minutes) 10 Patient Tolerance Good Comments with LE elevated PT-OP-T Assessment and Plan Start: 11/03/18 13:06 Freq: Status: Active Protocol: Document 11/20/18 10:39 LRN (Rec: 11/20/18 12:04 LRN [id number]) Physical Therapy Assessment Assessment Summary Assessment Pt was L3-L5 in R rotation. + resisted R SLR & Yonathan's Test; therfore + for R SIJ dysfunction causing R groin pain. R hip pain is probably from L/S. Pt is able to do the ex bike with better posture with stabilization of core during ex. Pt may need further transfer/movement training (bed mobility training) Physical Therapy Plan Frequency and Duration Frequency of Treatment 2x/Week Duration of Treatment 8 Plan of Care Start Date 11/03/18 Plan of Care End Date 12/29/18 Next Visit Focus/Plan Next Note Type Treatment Note Next Visit Plan Begin Shuttle, progress ROM while maintaining core stability, strength, and minimize edema. Training for nighttime positioning if needed, add Kegel to BKFO ex for pelvic stab, address core/ pelvic stability as needed during knee rehab.
--- NOTE | 2018-11-24 17:36 | PT.OTN ---
Current Diagnoses Unilateral primary osteoarthritis, left knee (11/24/18) Physical Therapy Treatment Note PT-OP-A Visit Information Start: 11/03/18 13:06 Freq: Status: Active Protocol: Document 11/24/18 17:29 [facility] (Rec: 11/24/18 17:36 [facility] [email or web address]) Out-Patient Physical Therapy Visit Information Visit Information Visit Type Treatment Note Visit Start Time 11:15 Visit Stop Time 12:15 Total Visit Minutes 60 Visit Number 5 Number of ASSEMBLY MACHINE FEEDER Visits 0 PT-OP-B Current Condition Start: 11/03/18 13:06 Freq: Status: Active Protocol: Document 11/03/18 13:06 [facility] (Rec: 11/03/18 13:40 [facility] [email or web address]) Current Condition History of Current Condition Onset Date 11/26/2017 Current Complaints c/o swelling, pain, and stiffness s/p left partial knee replacement History of Current Condition left partial knee replacement for the lateral joint was performed on 11/26/[address] Nielsen. Leah went home the same day as surgery. She notes she was given a pamplet of exercises but has not started doing them. She has not worn her compression stockings x 3 days now and she questions if she should return to wearing them due to a increase in edema in her left leg in the past few days. She is using both a cane for shorter distances and a fww for longer distances. She does have stairs in her house but does not need to use them at this time. Her next doctors appointment is 11/09/18 Treatment Goals Patient/Caregiver Goals to return to full ROM of her left LE, decrease pain, decrease swelling, and improve mobility Current Functional Impairments (Reported) Functional Limitations- ADL's limited in activies that require bending, lifting, walking up and down stairs Functional Limitations- Mobility/Gait limited with mobility and gait , using a spc as well as FWW for assistance PT-OP-C Subjective Start: 11/03/18 13:06 Freq: Status: Active Protocol: Document 11/24/18 17:29 [facility] (Rec: 11/24/18 17:36 [facility] [email or web address]) OP-PT Subjective Patient Comments Patient Comments Right hip doing better, she notes she is sore in her knee after a day of exercise PT-OP-F Manual Assessment Start: 11/03/18 13:06 Freq: Status: Active Protocol: Document 11/03/18 13:06 [facility] (Rec: 11/03/18 13:40 [facility] [email or web address]) Manual Assessments Soft Tissue Assessment Soft Tissue Mobility Assessment swelling noted from the left knee to the ankle and foot with pitting edema in the left dorsal foot PT-OP-G Mobility & Gait Start: 11/03/18 13:06 Freq: Status: Active Protocol: Document 11/03/18 17:29 [facility] (Rec: 11/03/18 17:30 [facility] [email or web address]) OP Gait Assessment Gait Gait Assistance Required: Independent Assistive Devices Assistive Device Straight Cane Gait Deviations General Gait Pattern Antalgic Decreased Stride Length Flexed Trunk Step-to Gait Factors Limiting Gait Function Factors Limiting Gait Function Decreased Activity Tolerance Decreased Strength Limited Range of Motion Pain Stair Climbing Evaluation Technique/Endurance Stair Climbing Technique Step to Step Comments Stair Climbing Comments pain with stairs PT-OP-K Range of Motion Start: 11/03/18 13:06 Freq: Status: Active Protocol: Document 11/06/18 11:20 [facility] (Rec: 11/06/18 12:31 [facility] [id number]) Knee Goniometric Range of Motion Knee Measured in Degrees Left Patient Position Supine Flexion Active (degrees) 70 Flexion Passive (degrees) 80 PT-OP-M Strength Start: 11/03/18 13:06 Freq: Status: Active Protocol: Document 11/03/18 13:06 [facility] (Rec: 11/03/18 13:40 [facility] [email or web address]) Knee Strength Knee Manual Muscle Testing Left Flexion (S2) 2+ Poor+ Extension (L3) 2 Poor PT-OP-Q Treatments Start: 11/03/18 13:06 Freq: Status: Active Protocol: Document 11/24/18 17:29 [facility] (Rec: 11/24/18 17:36 [facility] [email or web address]) Cardio Equipment Bicycle (Upright) Duration (Minutes) 8 Resistance 0 Seat Position 4 Other able to make full resolution forward and back Gym Equipment Shuttle Recovery Unilateral Squats Details left LE Resistance 25 Reps/Time 2 x 10 Bilateral Squats Details bilateral squats Resistance 50# Reps/Time 3 x 10 reps Therapeutic Exercises Supine Exercises BKFO Side bilateral Resistance Lev 2 Equipment Used T-Band Reps/Minutes 3' 6 Supine Exercise Name bridges Reps/Minutes 3 x 10 reps 3 Supine Exercise Name supine ball rolls Side bilateral Reps/Minutes 20 reps Comments pt has a ball at home, ball rolls were easier than heel slides for her 2 Supine Exercise Name See seated knee flexion 1 Supine Exercise Name SLR Reps/Minutes 3 x 10 reps Sitting Exercises 1 Sitting Exercise Name seated knee flexion stretch Side bilateral Reps/Minutes 10 reps each Comments Shifting hips forward with feet on ground Standing Exercises 1 Standing Exercise Name standing calf stretch Manual Therapy Treatment Soft Tissue Mobilization 1 Body Location left LE, edema reduction STM with LE elevated Intensity/Depth Superficial Body Position Hooklying PT-OP-R Modalities Start: 11/03/18 13:06 Freq: Status: Active Protocol: Document 11/20/18 10:39 [facility] (Rec: 11/20/18 12:05 [facility] [id number]) Hot Pack/Cold Pack Treatment cryo cuff Location left knee Patient Position Hooklying Treatment Duration (minutes) 10 Patient Tolerance Good Comments with LE elevated PT-OP-T Assessment and Plan Start: 11/03/18 13:06 Freq: Status: Active Protocol: Document 11/24/18 17:29 [facility] (Rec: 11/24/18 17:36 [facility] [email or web address]) Physical Therapy Assessment Assessment Summary Assessment Knee flexion to 115 deg today, extension 5 degrees. Good improvement with ROM. Continue progressing strength. Begin stair training as this is a goal of [place] and she would like to be able to knee to garden Physical Therapy Plan Frequency and Duration Frequency of Treatment 2x/Week Duration of Treatment 8 Plan of Care Start Date 11/03/18 Plan of Care End Date 12/29/18 Next Visit Focus/Plan Next Note Type Treatment Note Next Visit Plan begin stair training down stairs as Leah has a good deal of stairs in her house.
--- NOTE | 2018-11-27 12:27 | PT.OTN ---
Current Diagnoses Unilateral primary osteoarthritis, left knee (11/27/18) Physical Therapy Treatment Note PT-OP-A Visit Information Start: 11/03/18 13:06 Freq: Status: Active Protocol: Document 11/27/18 11:21 [facility] (Rec: 11/27/18 12:25 [facility] [id number]) Out-Patient Physical Therapy Visit Information Visit Information Visit Type Treatment Note Visit Start Time 11:21 Visit Stop Time 12:20 Total Visit Minutes 59 Visit Number 6 Number of APPRENTICE MACHINIST OUTSIDE Visits 0 Evaluation Information Evaluation Date 11/03/18 PT-OP-B Current Condition Start: 11/03/18 13:06 Freq: Status: Active Protocol: Document 11/03/18 13:06 [facility] (Rec: 11/03/18 13:40 [facility] [email or web address]) Current Condition History of Current Condition Onset Date 11/26/2017 Current Complaints c/o swelling, pain, and stiffness s/p left partial knee replacement History of Current Condition left partial knee replacement for the lateral joint was performed on 11/26/[address] Nielsen. Leah went home the same day as surgery. She notes she was given a pamplet of exercises but has not started doing them. She has not worn her compression stockings x 3 days now and she questions if she should return to wearing them due to a increase in edema in her left leg in the past few days. She is using both a cane for shorter distances and a fww for longer distances. She does have stairs in her house but does not need to use them at this time. Her next doctors appointment is 11/09/18 Treatment Goals Patient/Caregiver Goals to return to full ROM of her left LE, decrease pain, decrease swelling, and improve mobility Current Functional Impairments (Reported) Functional Limitations- ADL's limited in activies that require bending, lifting, walking up and down stairs Functional Limitations- Mobility/Gait limited with mobility and gait , using a spc as well as FWW for assistance PT-OP-C Subjective Start: 11/03/18 13:06 Freq: Status: Active Protocol: Document 11/27/18 11:21 [facility] (Rec: 11/27/18 12:25 [facility] [id number]) OP-PT Subjective Patient Comments Patient Comments Seeing Dr in 4 days for 6 week follow up visit. States she has been driving the past couple of days to [place] and back several times and has had R groin pain for the past 2 days. PT-OP-F Manual Assessment Start: 11/03/18 13:06 Freq: Status: Active Protocol: Document 11/03/18 13:06 [facility] (Rec: 11/03/18 13:40 [facility] [email or web address]) Manual Assessments Soft Tissue Assessment Soft Tissue Mobility Assessment swelling noted from the left knee to the ankle and foot with pitting edema in the left dorsal foot PT-OP-G Mobility & Gait Start: 11/03/18 13:06 Freq: Status: Active Protocol: Document 11/03/18 17:29 [facility] (Rec: 11/03/18 17:30 [facility] [email or web address]) OP Gait Assessment Gait Gait Assistance Required: Independent Assistive Devices Assistive Device Straight Cane Gait Deviations General Gait Pattern Antalgic Decreased Stride Length Flexed Trunk Step-to Gait Factors Limiting Gait Function Factors Limiting Gait Function Decreased Activity Tolerance Decreased Strength Limited Range of Motion Pain Stair Climbing Evaluation Technique/Endurance Stair Climbing Technique Step to Step Comments Stair Climbing Comments pain with stairs PT-OP-K Range of Motion Start: 11/03/18 13:06 Freq: Status: Active Protocol: Document 11/27/18 11:21 [facility] (Rec: 11/27/18 12:27 [facility] [id number]) Knee Goniometric Range of Motion Knee Measured in Degrees Left Patient Position Supine Flexion Active (degrees) 119 Flexion Passive (degrees) 120 Extension Passive (degrees) 0 PT-OP-M Strength Start: 11/03/18 13:06 Freq: Status: Active Protocol: Document 11/03/18 13:06 [facility] (Rec: 11/03/18 13:40 [facility] [email or web address]) Knee Strength Knee Manual Muscle Testing Left Flexion (S2) 2+ Poor+ Extension (L3) 2 Poor PT-OP-Q Treatments Start: 11/03/18 13:06 Freq: Status: Active Protocol: Document 11/27/18 11:21 [facility] (Rec: 11/27/18 12:25 [facility] [id number]) Cardio Equipment Bicycle (Upright) Duration (Minutes) 8 Resistance 2 Seat Position 3 Other able to make full resolution forward and back Gym Equipment Shuttle Recovery Bilateral Squats Details bilateral squats Resistance 62# Reps/Time 3 x 10 reps Therapeutic Exercises Supine Exercises Trunk rotation stretch Supine Exercise Name Knee rolls right Comments Upper trunk R rotation BKFO Supine Exercise Name BKFO with Kegel Side bilateral Resistance Lev 2 Equipment Used T-Band Reps/Minutes 3' Comments 1 rest break 6 Supine Exercise Name bridges with DLS Reps/Minutes ~15 x 2 reps Comments Stretch into trunk rotation 1/ 2 way 3 Supine Exercise Name supine ball rolls with core stabiliztion Side bilateral Reps/Minutes 30 reps Comments pt has a ball at home, ball rolls were easier than heel slides for her Therapeutic Activity Therapeutic Activity Transfer training Name Prone > Sit Comments With core stabilization Manual Therapy Treatment Joint Mobilizations Sacrum Direction Correcting a R rotated Sacrum Grade II Body Position Prone Reps/Duration 5' Comments Ocillations Lumbar Joint L3-L5 Direction L rot to correct for R rotated L/S Grade II Body Position Prone Reps/Duration 15' Comments Oscillations Manual Techniques Low back Type STM Body Location R lumbar paraspinals Body Position Prone Comments 3' PT-OP-R Modalities Start: 11/03/18 13:06 Freq: Status: Active Protocol: Document 11/27/18 11:21 [facility] (Rec: 11/27/18 12:25 [facility] [id number]) Hot Pack/Cold Pack Treatment cryo cuff Location left knee Patient Position Hooklying Treatment Duration (minutes) 10 Patient Tolerance Good Comments with LE elevated PT-OP-T Assessment and Plan Start: 11/03/18 13:06 Freq: Status: Active Protocol: Document 11/27/18 11:21 [facility] (Rec: 11/27/18 12:25 [facility] [id number]) Physical Therapy Assessment Goals Four Impairment impaired gait Director [employer] Goal (LTG) The patient is demonstrating an improved gait pattern without use of a assistive device and improved heel strike. She is able to go up and down stairs without pain LTG Duration 6-8 weeks Three Impairment swelling and edema of the left LE from the knee to the foot Short Term Goal (STG) Decrease swelling in the left LE with manual therapy techniques, modalities and ther ex. Currently the left (joint line is 47 cm and the right is 40 cm) STG Duration 4-5 weeks Two Impairment Decreased strength of the left knee Custodial Goal (LTG) Improve strength of the left knee including the ability to fully perform a quad squeeze in full knee extension and the patient is able to demonstrate functional strengh of left knee strength with a standing squat LTG Duration 6-8 weeks One Impairment Decreased left knee ROM Short Term Goal (STG) improve ROM of the left knee from where it is now at( 50 AROM and 75 PROM) to 120 deg AROM flexion or better and Leah is able to fully extend her knee to 0 STG Duration 6 weeks Assessment Summary Assessment Active L knee flexion at end of therapy was 119 deg's, passively is 120 deg's. Pt is able to walk without her cane and a slight antalgic gait when she doesn't have groin pain. SPC was needed she was having groin pain. Good resolution of R groin pain with manual therapy. Physical Therapy Plan Next Visit Focus/Plan Next Note Type Treatment Note Next Visit Plan Held stairs due to R groin pain to start; therefore add stair training and LE strengthening to improve function.
--- NOTE | 2018-12-01 17:29 | PT.OTN ---
Current Diagnoses Unilateral primary osteoarthritis, left knee (12/01/18) Physical Therapy Treatment Note PT-OP-A Visit Information Start: 11/03/18 13:06 Freq: Status: Active Protocol: Document 12/01/18 17:12 [facility] (Rec: 12/01/18 17:29 [facility] [email or web address]) Out-Patient Physical Therapy Visit Information Visit Information Visit Type Progress Note Visit Start Time 11:15 Visit Stop Time 12:15 Total Visit Minutes 60 Visit Number 7 Number of FIELD SALES CONSULTANT Visits 0 PT-OP-B Current Condition Start: 11/03/18 13:06 Freq: Status: Active Protocol: Document 11/03/18 13:06 [facility] (Rec: 11/03/18 13:40 [facility] [email or web address]) Current Condition History of Current Condition Onset Date 11/26/2017 Current Complaints c/o swelling, pain, and stiffness s/p left partial knee replacement History of Current Condition left partial knee replacement for the lateral joint was performed on 11/26/[address] Nielsen. Leah went home the same day as surgery. She notes she was given a pamplet of exercises but has not started doing them. She has not worn her compression stockings x 3 days now and she questions if she should return to wearing them due to a increase in edema in her left leg in the past few days. She is using both a cane for shorter distances and a fww for longer distances. She does have stairs in her house but does not need to use them at this time. Her next doctors appointment is 11/09/18 Treatment Goals Patient/Caregiver Goals to return to full ROM of her left LE, decrease pain, decrease swelling, and improve mobility Current Functional Impairments (Reported) Functional Limitations- ADL's limited in activies that require bending, lifting, walking up and down stairs Functional Limitations- Mobility/Gait limited with mobility and gait , using a spc as well as FWW for assistance PT-OP-C Subjective Start: 11/03/18 13:06 Freq: Status: Active Protocol: Document 12/01/18 17:12 [facility] (Rec: 12/01/18 17:29 [facility] [email or web address]) OP-PT Subjective Patient Comments Patient Comments Leah reports that her knee is really doing much better. She is experiencing pain into her right groin that is worsening. PT-OP-F Manual Assessment Start: 11/03/18 13:06 Freq: Status: Active Protocol: Document 11/03/18 13:06 [facility] (Rec: 11/03/18 13:40 [facility] [email or web address]) Manual Assessments Soft Tissue Assessment Soft Tissue Mobility Assessment swelling noted from the left knee to the ankle and foot with pitting edema in the left dorsal foot PT-OP-G Mobility & Gait Start: 11/03/18 13:06 Freq: Status: Active Protocol: Document 11/03/18 17:29 [facility] (Rec: 11/03/18 17:30 [facility] [email or web address]) OP Gait Assessment Gait Gait Assistance Required: Independent Assistive Devices Assistive Device Straight Cane Gait Deviations General Gait Pattern Antalgic Decreased Stride Length Flexed Trunk Step-to Gait Factors Limiting Gait Function Factors Limiting Gait Function Decreased Activity Tolerance Decreased Strength Limited Range of Motion Pain Stair Climbing Evaluation Technique/Endurance Stair Climbing Technique Step to Step Comments Stair Climbing Comments pain with stairs PT-OP-K Range of Motion Start: 11/03/18 13:06 Freq: Status: Active Protocol: Document 12/01/18 17:12 [facility] (Rec: 12/01/18 17:29 [facility] [email or web address]) Knee Goniometric Range of Motion Knee Measured in Degrees Right Knee ROM WFL Yes Left Patient Position Supine Flexion Active (degrees) 119 Flexion Passive (degrees) 120 Extension Active (degrees) 5 Extension Passive (degrees) 4 PT-OP-M Strength Start: 11/03/18 13:06 Freq: Status: Active Protocol: Document 11/03/18 13:06 [facility] (Rec: 11/03/18 13:40 [facility] [email or web address]) Knee Strength Knee Manual Muscle Testing Left Flexion (S2) 2+ Poor+ Extension (L3) 2 Poor PT-OP-Q Treatments Start: 11/03/18 13:06 Freq: Status: Active Protocol: Document 12/01/18 17:12 [facility] (Rec: 12/01/18 17:29 [facility] [email or web address]) Cardio Equipment Bicycle (Upright) Duration (Minutes) 8 Resistance 2 Seat Position 3 Other able to make full resolution forward and back Therapeutic Exercises Supine Exercises 7 Supine Exercise Name isometric ball squeee Reps/Minutes x 10 6 Supine Exercise Name bridges with DLS Reps/Minutes ~15 x 2 reps Comments Stretch into trunk rotation 1/ 2 way 3 Supine Exercise Name supine ball rolls with core stabiliztion Side bilateral Reps/Minutes 30 reps Comments pt has a ball at home, ball rolls were easier than heel slides for her 1 Supine Exercise Name SLR Reps/Minutes 3 x 10 reps Comments with core activation Manual Therapy Treatment Soft Tissue Mobilization 3 Body Location QL release in sidelying Joint Mobilizations 1 Joint MET left posterior innominant rotation Manual Techniques 1 Type right LE distraction PT-OP-R Modalities Start: 11/03/18 13:06 Freq: Status: Active Protocol: Document 12/01/18 17:12 [facility] (Rec: 12/01/18 17:29 [facility] [email or web address]) Hot Pack/Cold Pack Treatment Cold Pack Location left knee Treatment Duration (minutes) 10 Patient Tolerance Good Hot Pack Location low back Treatment Duration (minutes) 10 PT-OP-T Assessment and Plan Start: 11/03/18 13:06 Freq: Status: Active Protocol: Document 12/01/18 17:12 [facility] (Rec: 12/01/18 17:29 [facility] [email or web address]) Physical Therapy Assessment Progress Towards Goals Progress Towards Goals Progressing Toward Goals Assessment Summary Assessment Leah has been seen for 7 visits in PT and is making good progress with her left Knee ROM and strength. She is able to flex to 120 deg, extension is still a little tight between 4-5 degrees today. She is using a cane to ambulate with but can go without. She has been experiencing right sided SI and groin pain so I have encouraged her to use the cane for longer distances to help relieve stress on the opposite side. Leah would benefit from continued PT working on dynamic stabilization exercises and balance Physical Therapy Plan Frequency and Duration Frequency of Treatment 2x/Week Duration of Treatment 8 Plan of Care Start Date 12/01/18 Plan of Care End Date 02/16/19 Therapeutic Interventions Therapeutic Interventions Gait Training Home Exercise Program Manual Therapy Neuromuscular Re-education Patient/Caregiver Education Self-Care/Home Management Soft Tissue Mobilization Therapeutic Exercises Modalities Cold Pack/Ice Massage Next Visit Focus/Plan Next Note Type Treatment Note Next Visit Plan stair training, gait training, increase LE strengthening as tolerated
--- NOTE | 2018-12-01 17:29 | PT.OPPOC ---
Current Diagnoses Unilateral primary osteoarthritis, left knee (12/01/18) Provider Visit Care Team Role Provider Type Bess Dunn DO Primary Care Provider Physician Specialty: Family Practice Address: [facility] [place], [address] Email: [email or web address] Ashlee Harman PA-C Attending Provider Non-Staff Specialty: Medical Address: [address] [place] [address], [id number] Email: Plan Of Care PT-OP-T Assessment and Plan Start: 11/03/18 13:06 Freq: Status: Active Protocol: Document 12/01/18 17:12 [facility] (Rec: 12/01/18 17:29 [facility] [email or web address]) Physical Therapy Assessment Progress Towards Goals Progress Towards Goals Progressing Toward Goals Assessment Summary Assessment Leah has been seen for 7 visits in PT and is making good progress with her left Knee ROM and strength. She is able to flex to 120 deg, extension is still a little tight between 4-5 degrees today. She is using a cane to ambulate with but can go without. She has been experiencing right sided SI and groin pain so I have encouraged her to use the cane for longer distances to help relieve stress on the opposite side. Leah would benefit from continued PT working on dynamic stabilization exercises and balance Physical Therapy Plan Frequency and Duration Frequency of Treatment 2x/Week Duration of Treatment 8 Plan of Care Start Date 12/01/18 Plan of Care End Date 02/16/19 Therapeutic Interventions Therapeutic Interventions Gait Training Home Exercise Program Manual Therapy Neuromuscular Re-education Patient/Caregiver Education Self-Care/Home Management Soft Tissue Mobilization Therapeutic Exercises Modalities Cold Pack/Ice Massage Next Visit Focus/Plan Next Note Type Treatment Note Next Visit Plan stair training, gait training, increase LE strengthening as tolerated Plan of Care Dates Plan of Care Start Date 12/01/18 Plan of Care End Date 02/16/19 Please Sign and Return: I have reviewed this Plan of Care and certify that the skilled therapy services above are required to meet the patient?s needs. Physician Signature Date Printed Name and Credentials Clinical Instructor Signature Printed Name and Credentials
--- NOTE | 2018-12-04 12:40 | PT.OTN ---
Current Diagnoses Unilateral primary osteoarthritis, left knee (12/04/18) Physical Therapy Treatment Note PT-OP-A Visit Information Start: 11/03/18 13:06 Freq: Status: Active Protocol: Document 12/04/18 11:20 LRN (Rec: 12/04/18 12:38 LRN [id number]) Out-Patient Physical Therapy Visit Information Visit Information Visit Type Initial Evaluation Visit Start Time 11:20 Visit Stop Time 12:10 Total Visit Minutes 50 Visit Number 8 Number of THAI MASSEUR Visits 0 Evaluation Information Evaluation Date 11/03/18 PT-OP-B Current Condition Start: 11/03/18 13:06 Freq: Status: Active Protocol: Document 11/03/18 13:06 AMH (Rec: 11/03/18 13:40 AMH [email or web address]) Current Condition History of Current Condition Onset Date 11/26/2017 Current Complaints c/o swelling, pain, and stiffness s/p left partial knee replacement History of Current Condition left partial knee replacement for the lateral joint was performed on 11/26/[address] Nielsen. Leah went home the same day as surgery. She notes she was given a pamplet of exercises but has not started doing them. She has not worn her compression stockings x 3 days now and she questions if she should return to wearing them due to a increase in edema in her left leg in the past few days. She is using both a cane for shorter distances and a fww for longer distances. She does have stairs in her house but does not need to use them at this time. Her next doctors appointment is 11/09/18 Treatment Goals Patient/Caregiver Goals to return to full ROM of her left LE, decrease pain, decrease swelling, and improve mobility Current Functional Impairments (Reported) Functional Limitations- ADL's limited in activies that require bending, lifting, walking up and down stairs Functional Limitations- Mobility/Gait limited with mobility and gait , using a spc as well as FWW for assistance PT-OP-C Subjective Start: 11/03/18 13:06 Freq: Status: Active Protocol: Document 12/04/18 11:20 LRN (Rec: 12/04/18 12:38 LRN [id number]) OP-PT Subjective Patient Comments Patient Comments Saw Dr. Nielsen for 6 week follow up visit and knee is doing well. He states she may have a femoral nerve problem and osteoarthritis of the R hip. Sleeping on the heating pad around the R hip helps, is more comfortable and doesn't have sharp groin pain turning in bed. Able to sleep 4 hours uninterrupted. PT-OP-F Manual Assessment Start: 11/03/18 13:06 Freq: Status: Active Protocol: Document 11/03/18 13:06 AMH (Rec: 11/03/18 13:40 [facility] [email or web address]) Manual Assessments Soft Tissue Assessment Soft Tissue Mobility Assessment swelling noted from the left knee to the ankle and foot with pitting edema in the left dorsal foot PT-OP-G Mobility & Gait Start: 11/03/18 13:06 Freq: Status: Active Protocol: Document 11/03/18 17:29 AMH (Rec: 11/03/18 17:30 [facility] [email or web address]) OP Gait Assessment Gait Gait Assistance Required: Independent Assistive Devices Assistive Device Straight Cane Gait Deviations General Gait Pattern Antalgic Decreased Stride Length Flexed Trunk Step-to Gait Factors Limiting Gait Function Factors Limiting Gait Function Decreased Activity Tolerance Decreased Strength Limited Range of Motion Pain Stair Climbing Evaluation Technique/Endurance Stair Climbing Technique Step to Step Comments Stair Climbing Comments pain with stairs PT-OP-K Range of Motion Start: 11/03/18 13:06 Freq: Status: Active Protocol: Document 12/01/18 17:12 AMH (Rec: 12/01/18 17:29 [facility] [email or web address]) Knee Goniometric Range of Motion Knee Measured in Degrees Right Knee ROM WFL Yes Left Patient Position Supine Flexion Active (degrees) 119 Flexion Passive (degrees) 120 Extension Active (degrees) 5 Extension Passive (degrees) 4 PT-OP-M Strength Start: 11/03/18 13:06 Freq: Status: Active Protocol: Document 11/03/18 13:06 AMH (Rec: 11/03/18 13:40 [facility] [email or web address]) Knee Strength Knee Manual Muscle Testing Left Flexion (S2) 2+ Poor+ Extension (L3) 2 Poor PT-OP-Q Treatments Start: 11/03/18 13:06 Freq: Status: Active Protocol: Document 12/04/18 11:20 LRN (Rec: 12/04/18 12:38 LRN [id number]) Cardio Equipment Bicycle (Upright) Duration (Minutes) 8 Resistance 2 Seat Position Min Other able to make full resolution forward and back Therapeutic Exercises Supine Exercises 3 Supine Exercise Name supine ball rolls with core stabiliztion Side bilateral Reps/Minutes 30 reps Comments pt has a ball at home, ball rolls were easier than heel slides for her Therapeutic Activity Therapeutic Activity Body mechanics training Name Dressing (pants/shoes), picking objects from table/ floor. Reps/Minutes 10' Comments With DLS training Transfer training Name Sit > supine > sit Reps/Minutes 2x Comments DLS training Manual Therapy Treatment Joint Mobilizations Sacrum Direction Correcting a R rotated Sacrum Grade II Body Position Prone Reps/Duration 5' Comments Ocillations Lumbar Joint L3-L5 Direction L rot to correct for R rotated L/S Grade II Body Position Prone Reps/Duration 15' Comments Oscillations Manual Techniques Low back Type STM Body Location R lumbar paraspinals Body Position Prone Comments 3' Self-Care/Home Management Treatment Education Patient Education Pain Management Other Education Self care for decreasing R groin pain with self stabilization of L4-5. PT-OP-R Modalities Start: 11/03/18 13:06 Freq: Status: Active Protocol: Document 12/01/18 17:12 AMH (Rec: 12/01/18 17:29 AMH [email or web address]) Hot Pack/Cold Pack Treatment Cold Pack Location left knee Treatment Duration (minutes) 10 Patient Tolerance Good Hot Pack Location low back Treatment Duration (minutes) 10 PT-OP-T Assessment and Plan Start: 11/03/18 13:06 Freq: Status: Active Protocol: Document 12/04/18 11:20 LRN (Rec: 12/04/18 12:38 LRN [id number]) Physical Therapy Assessment Assessment Summary Assessment Leah has been seen for 8 visits in PT and is making good progress with her left Knee ROM and strength. L knee AROM: 120 deg's/ PROM: 122. Extension is still a little tight, lacking between 4-5 degrees. She comes to therapy ambulating without a cane. She had relief from her groin pain by end of therapy. Leah will benefit from continued PT working on dynamic stabilization exercises and balance. Physical Therapy Plan Frequency and Duration Frequency of Treatment 2x/Week Duration of Treatment 8 Plan of Care Start Date 12/01/18 Plan of Care End Date 02/16/19 Next Visit Focus/Plan Next Note Type Treatment Note Next Visit Plan Add stair strengthening training, gait training and decreasing R groin pain, increase LE strengthening as tolerated for normal stair ambulation.
--- NOTE | 2018-12-11 11:15 | PT.OTN ---
Current Diagnoses Unilateral primary osteoarthritis, left knee (12/11/18) Physical Therapy Treatment Note PT-OP-A Visit Information Start: 11/03/18 13:06 Freq: Status: Active Protocol: Document 12/11/18 11:15 DLM (Rec: 12/11/18 12:54 DL [id number]) Out-Patient Physical Therapy Visit Information Visit Information Visit Type Treatment Note Visit Start Time 11:15 Visit Stop Time 12:15 Total Visit Minutes 60 Visit Number 9 Number of SUBASSEMBLY SUPERVISOR Visits 0 Evaluation Information Evaluation Date 11/03/18 PT-OP-B Current Condition Start: 11/03/18 13:06 Freq: Status: Active Protocol: Document 11/03/18 13:06 AMH (Rec: 11/03/18 13:40 AMH [email or web address]) Current Condition History of Current Condition Onset Date 11/26/2017 Current Complaints c/o swelling, pain, and stiffness s/p left partial knee replacement History of Current Condition left partial knee replacement for the lateral joint was performed on 11/26/[address] Nielsen. Leah went home the same day as surgery. She notes she was given a pamplet of exercises but has not started doing them. She has not worn her compression stockings x 3 days now and she questions if she should return to wearing them due to a increase in edema in her left leg in the past few days. She is using both a cane for shorter distances and a fww for longer distances. She does have stairs in her house but does not need to use them at this time. Her next doctors appointment is 11/09/18 Treatment Goals Patient/Caregiver Goals to return to full ROM of her left LE, decrease pain, decrease swelling, and improve mobility Current Functional Impairments (Reported) Functional Limitations- ADL's limited in activies that require bending, lifting, walking up and down stairs Functional Limitations- Mobility/Gait limited with mobility and gait , using a spc as well as FWW for assistance PT-OP-C Subjective Start: 11/03/18 13:06 Freq: Status: Active Protocol: Document 12/11/18 11:15 DLM (Rec: 12/11/18 12:54 DL [id number]) OP-PT Subjective Patient Comments Patient Comments Now able to go up and down her stairs at home. The pain in right groin area is still bothering her but is a little better. She wants to be able to shovel dirt in the spring for her garden OP-PT Pain Assessment Location Right Groin Pain Location Details and low back Intensity 2 Scale Used Numeric (1 - 10) Description Aching Frequency Intermittent Other Pain Aggravating Factors rolling over in bed left knee Intensity 0 Scale Used Numeric (1 - 10) Other Pain Aggravating Factors palpation of muscles by therapist Pain Alleviating Factors Cold Pain Behaviors Pain Behaviors Guarding PT-OP-F Manual Assessment Start: 11/03/18 13:06 Freq: Status: Active Protocol: Document 11/03/18 13:06 AMH (Rec: 11/03/18 13:40 [facility] [email or web address]) Manual Assessments Soft Tissue Assessment Soft Tissue Mobility Assessment swelling noted from the left knee to the ankle and foot with pitting edema in the left dorsal foot PT-OP-G Mobility & Gait Start: 11/03/18 13:06 Freq: Status: Active Protocol: Document 11/03/18 17:29 AMH (Rec: 11/03/18 17:30 [facility] [email or web address]) OP Gait Assessment Gait Gait Assistance Required: Independent Assistive Devices Assistive Device Straight Cane Gait Deviations General Gait Pattern Antalgic Decreased Stride Length Flexed Trunk Step-to Gait Factors Limiting Gait Function Factors Limiting Gait Function Decreased Activity Tolerance Decreased Strength Limited Range of Motion Pain Stair Climbing Evaluation Technique/Endurance Stair Climbing Technique Step to Step Comments Stair Climbing Comments pain with stairs PT-OP-K Range of Motion Start: 11/03/18 13:06 Freq: Status: Active Protocol: Document 12/01/18 17:12 AMH (Rec: 12/01/18 17:29 [facility] [email or web address]) Knee Goniometric Range of Motion Knee Measured in Degrees Right Knee ROM WFL Yes Left Patient Position Supine Flexion Active (degrees) 119 Flexion Passive (degrees) 120 Extension Active (degrees) 5 Extension Passive (degrees) 4 PT-OP-M Strength Start: 11/03/18 13:06 Freq: Status: Active Protocol: Document 11/03/18 13:06 AMH (Rec: 11/03/18 13:40 [facility] [email or web address]) Knee Strength Knee Manual Muscle Testing Left Flexion (S2) 2+ Poor+ Extension (L3) 2 Poor PT-OP-Q Treatments Start: 11/03/18 13:06 Freq: Status: Active Protocol: Document 12/11/18 11:15 DLM (Rec: 12/11/18 12:54 DLM [id number]) Cardio Equipment Bicycle (Upright) Duration (Minutes) 9 Resistance 2 Seat Position 3 Other full revolutions Therapeutic Exercises Supine Exercises 8 Supine Exercise Name quad set Side left Reps/Minutes 5 reps active and 5 with assistance Comments with therapist over-pressure to increase knee extension ROM BKFO Supine Exercise Name BKFO with Kegel Side bilateral Reps/Minutes 10 reps Bilateral Comments with gentle adductor stretch 3 Comments reviewed exercise she is doing at home Prone Exercises 2 Prone Exercise Name hip IR/ER Side right Comments therapist assisted stretch Standing Exercises 2 Standing Exercise Name squats Side bilateral Comments with goal to functionally reach floor Gait Training Gait Activity 2 Description stairs Device Used one rail as needed Level of Assistance verbal cues Treatment Focus decreased compensations on left LE Comments pt able to resolve vaulting up on left LE with training 1 Description gait without limp Device Used none Level of Assistance verbal cues Surface level Manual Therapy Treatment Soft Tissue Mobilization 4 Body Location hip adductors Mobilization Type Strain/Counterstrain Sustained Pressure Intensity/Depth Moderate Body Position Hooklying Comments bilateral, severe tightness on right 3 Body Location QL release in prone Mobilization Type Strumming Sustained Pressure Intensity/Depth Moderate Body Position Prone 2 Body Location right gluteal Mobilization Type Strumming Sustained Pressure Trigger Point Release Intensity/Depth Moderate Body Position Prone 1 Body Location left knee area Mobilization Type Strumming Intensity/Depth Superficial Comments very tender in quad and adductors Joint Mobilizations Sacrum Direction Correcting a R rotated Sacrum Grade II Body Position Prone Reps/Duration 5' Comments Ocillations Manual Techniques Low back Type STM Body Location R lumbar paraspinals Body Position Prone Comments 3' PT-OP-R Modalities Start: 11/03/18 13:06 Freq: Status: Active Protocol: Document 12/11/18 11:15 DLM (Rec: 12/11/18 12:54 DL [id number]) Hot Pack/Cold Pack Treatment Cold Pack Comments pt plans to ice at home today PT-OP-T Assessment and Plan Start: 11/03/18 13:06 Freq: Status: Active Protocol: Document 12/11/18 11:15 DLM (Rec: 12/11/18 12:54 DLM [id number]) Physical Therapy Assessment Progress Towards Goals Progress Towards Goals Progressing Toward Goals Assessment Summary Assessment She continues to c/o right groin pain that interferes with her mobility. Left knee pain is well controlled. Compensations noted with stairs and antalgic gait pattern that improved with training. Pt is reluctant to use her cane but verbalized understanding of using her cane to manage her right hip area/back pain. Her functional strength continues to slowly improve. Left LE edema is still present with pt wearing compression sock today. Pt has no awareness of her functional compensations until they are identified during therapy training activities. Physical Therapy Plan Frequency and Duration Frequency of Treatment 2x/Week Duration of Treatment 8 Plan of Care Start Date 12/01/18 Plan of Care End Date 02/16/19 Therapeutic Interventions Therapeutic Interventions Gait Training Home Exercise Program Manual Therapy Neuromuscular Re-education Patient/Caregiver Education Self-Care/Home Management Soft Tissue Mobilization Therapeutic Exercises Modalities Cold Pack/Ice Massage Next Visit Focus/Plan Next Note Type Treatment Note Next Visit Plan functional strengthening activities, continue to manage compensations to decrease stress on low back and right hip area
--- NOTE | 2018-12-15 15:00 | PT.OTN ---
Current Diagnoses Unilateral primary osteoarthritis, left knee (12/15/18) Physical Therapy Treatment Note PT-OP-A Visit Information Start: 11/03/18 13:06 Freq: Status: Active Protocol: Document 12/15/18 14:47 [facility] (Rec: 12/15/18 15:00 [facility] [email or web address]) Out-Patient Physical Therapy Visit Information Visit Information Visit Type Treatment Note Visit Start Time 11:15 Visit Stop Time 12:10 Total Visit Minutes 55 Visit Number 10 Number of MANAGER FASHION Visits 0 Evaluation Information Evaluation Date 11/03/18 PT-OP-B Current Condition Start: 11/03/18 13:06 Freq: Status: Active Protocol: Document 11/03/18 13:06 AMH (Rec: 11/03/18 13:40 AMH [email or web address]) Current Condition History of Current Condition Onset Date 11/26/2017 Current Complaints c/o swelling, pain, and stiffness s/p left partial knee replacement History of Current Condition left partial knee replacement for the lateral joint was performed on 11/26/[address] Nielsen. Leah went home the same day as surgery. She notes she was given a pamplet of exercises but has not started doing them. She has not worn her compression stockings x 3 days now and she questions if she should return to wearing them due to a increase in edema in her left leg in the past few days. She is using both a cane for shorter distances and a fww for longer distances. She does have stairs in her house but does not need to use them at this time. Her next doctors appointment is 11/09/18 Treatment Goals Patient/Caregiver Goals to return to full ROM of her left LE, decrease pain, decrease swelling, and improve mobility Current Functional Impairments (Reported) Functional Limitations- ADL's limited in activies that require bending, lifting, walking up and down stairs Functional Limitations- Mobility/Gait limited with mobility and gait , using a spc as well as FWW for assistance PT-OP-C Subjective Start: 11/03/18 13:06 Freq: Status: Active Protocol: Document 12/15/18 14:47 AMH (Rec: 12/15/18 15:00 [facility] [email or web address]) OP-PT Subjective Patient Comments Patient Comments Leah reports her knee is doing great but she is experiencing a lot of right sided hip and groin pain. She is requesting a x-ray of the right hip PT-OP-F Manual Assessment Start: 11/03/18 13:06 Freq: Status: Active Protocol: Document 11/03/18 13:06 AMH (Rec: 11/03/18 13:40 AMH [email or web address]) Manual Assessments Soft Tissue Assessment Soft Tissue Mobility Assessment swelling noted from the left knee to the ankle and foot with pitting edema in the left dorsal foot PT-OP-G Mobility & Gait Start: 11/03/18 13:06 Freq: Status: Active Protocol: Document 11/03/18 17:29 AMH (Rec: 11/03/18 17:30 AMH [email or web address]) OP Gait Assessment Gait Gait Assistance Required: Independent Assistive Devices Assistive Device Straight Cane Gait Deviations General Gait Pattern Antalgic Decreased Stride Length Flexed Trunk Step-to Gait Factors Limiting Gait Function Factors Limiting Gait Function Decreased Activity Tolerance Decreased Strength Limited Range of Motion Pain Stair Climbing Evaluation Technique/Endurance Stair Climbing Technique Step to Step Comments Stair Climbing Comments pain with stairs PT-OP-K Range of Motion Start: 11/03/18 13:06 Freq: Status: Active Protocol: Document 12/01/18 17:12 AMH (Rec: 12/01/18 17:29 AMH [email or web address]) Knee Goniometric Range of Motion Knee Measured in Degrees Right Knee ROM WFL Yes Left Patient Position Supine Flexion Active (degrees) 119 Flexion Passive (degrees) 120 Extension Active (degrees) 5 Extension Passive (degrees) 4 PT-OP-M Strength Start: 11/03/18 13:06 Freq: Status: Active Protocol: Document 11/03/18 13:06 AMH (Rec: 11/03/18 13:40 AMH [email or web address]) Knee Strength Knee Manual Muscle Testing Left Flexion (S2) 2+ Poor+ Extension (L3) 2 Poor PT-OP-Q Treatments Start: 11/03/18 13:06 Freq: Status: Active Protocol: Document 12/15/18 14:47 AMH (Rec: 12/15/18 15:00 AMH [email or web address]) Cardio Equipment Bicycle (Upright) Duration (Minutes) 6 Resistance 2 Seat Position 3 Therapeutic Exercises Supine Exercises 10 Supine Exercise Name B hip ER with legs straight 9 Supine Exercise Name roll outs with theraband 8 Supine Exercise Name quad set Side left Reps/Minutes 5 reps active and 5 with assistance Comments with therapist over-pressure to increase knee extension ROM BKFO Supine Exercise Name BKFO with Kegel Side bilateral Reps/Minutes 10 reps Bilateral Comments with gentle adductor stretch 6 Supine Exercise Name bridges with DLS Reps/Minutes ~15 x 2 reps Comments Stretch into trunk rotation 1/ 2 way 3 Supine Exercise Name supine ball rolls with core stabiliztion Side bilateral Reps/Minutes 30 reps Comments pt has a ball at home, ball rolls were easier than heel slides for her 1 Supine Exercise Name SLR Reps/Minutes 3 x 10 reps Comments with core activation Prone Exercises 2 Prone Exercise Name hip IR/ER Side right Comments therapist assisted stretch Manual Therapy Treatment Soft Tissue Mobilization 4 Body Location hip adductors Mobilization Type Strain/Counterstrain Sustained Pressure Intensity/Depth Moderate Body Position Hooklying Comments bilateral, severe tightness on right Manual Techniques 1 Type right LE distraction Other Other Manual Treatments right hip distraction with gentle posterior glides Self-Care/Home Management Treatment Activities Self-Care/Home Management Activities pt given a 1/8 inch heel lift for the right LE today to try and see if this helps with her right sided hip pain PT-OP-R Modalities Start: 11/03/18 13:06 Freq: Status: Active Protocol: Document 12/15/18 14:47 AMH (Rec: 12/15/18 15:00 AMH [email or web address]) Hot Pack/Cold Pack Treatment cryo cuff Location left knee Patient Position Hooklying Treatment Duration (minutes) 10 Patient Tolerance Good Comments with LE elevated Heat to the low back PT-OP-T Assessment and Plan Start: 11/03/18 13:06 Freq: Status: Active Protocol: Document 12/15/18 14:47 AMH (Rec: 12/15/18 15:00 AMH [email or web address]) Physical Therapy Assessment Assessment Summary Assessment Leah continues to complain of right sided anterior groin pain and has a great deal of muscle spasm in this region. We did try a 1/8 heel lift for her right LE today to see if this would help a bit as her left leg appears longer in supine. Her right sided groin pain is interferring with left sided knee treatment , Physical Therapy Plan Frequency and Duration Frequency of Treatment 2x/Week Duration of Treatment 8 Plan of Care Start Date 12/01/18 Plan of Care End Date 02/16/19 Therapeutic Interventions Therapeutic Interventions Gait Training Home Exercise Program Manual Therapy Neuromuscular Re-education Patient/Caregiver Education Self-Care/Home Management Soft Tissue Mobilization Therapeutic Exercises Modalities Cold Pack/Ice Massage Next Visit Focus/Plan Next Note Type Treatment Note Next Visit Plan functional strengthening activities, continue to manage compensations to decrease stress on low back and right hip area
--- NOTE | 2018-12-22 17:15 | PT.OTN ---
Current Diagnoses Unilateral primary osteoarthritis, left knee (12/22/18) Physical Therapy Treatment Note PT-OP-A Visit Information Start: 11/03/18 13:06 Freq: Status: Active Protocol: Document 12/22/18 16:51 [facility] (Rec: 12/22/18 17:15 [facility] [email or web address]) Out-Patient Physical Therapy Visit Information Visit Information Visit Type Treatment Note Visit Start Time 11:15 Visit Stop Time 12:15 Total Visit Minutes 60 Visit Number 11 Number of CORPORATE RISK ANALYST Visits 0 Evaluation Information Evaluation Date 11/03/18 PT-OP-B Current Condition Start: 11/03/18 13:06 Freq: Status: Active Protocol: Document 11/03/18 13:06 [facility] (Rec: 11/03/18 13:40 [facility] [email or web address]) Current Condition History of Current Condition Onset Date 11/26/2017 Current Complaints c/o swelling, pain, and stiffness s/p left partial knee replacement History of Current Condition left partial knee replacement for the lateral joint was performed on 11/26/[address] Nielsen. Leah went home the same day as surgery. She notes she was given a pamplet of exercises but has not started doing them. She has not worn her compression stockings x 3 days now and she questions if she should return to wearing them due to a increase in edema in her left leg in the past few days. She is using both a cane for shorter distances and a fww for longer distances. She does have stairs in her house but does not need to use them at this time. Her next doctors appointment is 11/09/18 Treatment Goals Patient/Caregiver Goals to return to full ROM of her left LE, decrease pain, decrease swelling, and improve mobility Current Functional Impairments (Reported) Functional Limitations- ADL's limited in activies that require bending, lifting, walking up and down stairs Functional Limitations- Mobility/Gait limited with mobility and gait , using a spc as well as FWW for assistance PT-OP-C Subjective Start: 11/03/18 13:06 Freq: Status: Active Protocol: Document 12/22/18 16:51 [facility] (Rec: 12/22/18 17:15 [facility] [email or web address]) OP-PT Subjective Patient Comments Patient Comments Leah reports her right hip is doing much better. The lift has really helped and she would like to purchase the 11/03 cork for home to put in all her shoes. PT-OP-F Manual Assessment Start: 11/03/18 13:06 Freq: Status: Active Protocol: Document 11/03/18 13:06 [facility] (Rec: 11/03/18 13:40 [facility] [email or web address]) Manual Assessments Soft Tissue Assessment Soft Tissue Mobility Assessment swelling noted from the left knee to the ankle and foot with pitting edema in the left dorsal foot PT-OP-G Mobility & Gait Start: 11/03/18 13:06 Freq: Status: Active Protocol: Document 11/03/18 17:29 [facility] (Rec: 11/03/18 17:30 [facility] [email or web address]) OP Gait Assessment Gait Gait Assistance Required: Independent Assistive Devices Assistive Device Straight Cane Gait Deviations General Gait Pattern Antalgic Decreased Stride Length Flexed Trunk Step-to Gait Factors Limiting Gait Function Factors Limiting Gait Function Decreased Activity Tolerance Decreased Strength Limited Range of Motion Pain Stair Climbing Evaluation Technique/Endurance Stair Climbing Technique Step to Step Comments Stair Climbing Comments pain with stairs PT-OP-K Range of Motion Start: 11/03/18 13:06 Freq: Status: Active Protocol: Document 12/01/18 17:12 [facility] (Rec: 12/01/18 17:29 [facility] [email or web address]) Knee Goniometric Range of Motion Knee Measured in Degrees Right Knee ROM WFL Yes Left Patient Position Supine Flexion Active (degrees) 119 Flexion Passive (degrees) 120 Extension Active (degrees) 5 Extension Passive (degrees) 4 PT-OP-M Strength Start: 11/03/18 13:06 Freq: Status: Active Protocol: Document 11/03/18 13:06 [facility] (Rec: 11/03/18 13:40 [facility] [email or web address]) Knee Strength Knee Manual Muscle Testing Left Flexion (S2) 2+ Poor+ Extension (L3) 2 Poor PT-OP-Q Treatments Start: 11/03/18 13:06 Freq: Status: Active Protocol: Document 12/22/18 16:51 [facility] (Rec: 12/22/18 17:15 [facility] [email or web address]) Cardio Equipment Bicycle (Upright) Duration (Minutes) 6 Resistance 2 Seat Position 3 Gym Equipment Cable Column (Body Solid) Hip Abduction Details seated hip abduction Resistance 20# Reps/Time 3 x 10 reps Shuttle Recovery Other- 1 Details unilateral squats Resistance 25# Reps/Time 2 x 10 Bilateral Squats Details bilateral squats Resistance 62# Reps/Time 3 x 10 reps Therapeutic Exercises Supine Exercises 6 Supine Exercise Name bridges with DLS Reps/Minutes ~15 x 2 reps Comments Stretch into trunk rotation 1/ 2 way 3 Supine Exercise Name supine ball rolls with core stabiliztion Side bilateral Reps/Minutes 30 reps Comments pt has a ball at home, ball rolls were easier than heel slides for her Standing Exercises 4 Standing Exercise Name standing hamstring stretch Comments in stairway 3 Standing Exercise Name standing rosetta stretch 2 Standing Exercise Name squats Side bilateral Comments with goal to functionally reach floor Manual Therapy Treatment Joint Mobilizations 2 Joint right hip manual mobilization with movement for hip distraction with IR/ER Manual Techniques 2 Type manual iliopsoas stretch in marichuy test position 1 Type right LE distraction PT-OP-R Modalities Start: 11/03/18 13:06 Freq: Status: Active Protocol: Document 12/15/18 14:47 [facility] (Rec: 12/15/18 15:00 [facility] [email or web address]) Hot Pack/Cold Pack Treatment cryo cuff Location left knee Patient Position Hooklying Treatment Duration (minutes) 10 Patient Tolerance Good Comments with LE elevated Heat to the low back PT-OP-T Assessment and Plan Start: 11/03/18 13:06 Freq: Status: Active Protocol: Document 12/22/18 16:51 [facility] (Rec: 12/22/18 17:15 [facility] [email or web address]) Physical Therapy Assessment Assessment Summary Assessment right hip appears to be doing much better today with the use of a 1/8 lift in shoe. No c /o groin pain today. She did have a X-ray taken which shows degeneration in the right hip . She brings in a new referral for the hip to add to her knee. Physical Therapy Plan Frequency and Duration Frequency of Treatment 2x/Week Duration of Treatment 8 Plan of Care Start Date 12/01/18 Plan of Care End Date 02/16/19 Therapeutic Interventions Therapeutic Interventions Gait Training Home Exercise Program Manual Therapy Neuromuscular Re-education Patient/Caregiver Education Self-Care/Home Management Soft Tissue Mobilization Therapeutic Exercises Modalities Cold Pack/Ice Massage Next Visit Focus/Plan Next Note Type Treatment Note Next Visit Plan Add treatment for the hip into [place] Plan of Care, Work on end range left knee ROM and strengthening
--- NOTE | 2018-12-29 16:50 | PT.OTN ---
Current Diagnoses Unilateral primary osteoarthritis, right hip (12/29/18) Unilateral primary osteoarthritis, left knee (12/29/18) Physical Therapy Treatment Note PT-OP-A Visit Information Start: 11/03/18 13:06 Freq: Status: Active Protocol: Document 12/29/18 11:21 LRN (Rec: 12/29/18 12:45 LRN [id number]) Out-Patient Physical Therapy Visit Information Visit Information Visit Type Treatment Note Visit Note New referral received for treatment of: Osteoarthritis of R hip. Visit Start Time 11:21 Visit Stop Time 12:15 Total Visit Minutes 54 Visit Number 12 Number of EDITORIAL CARTOONIST Visits 0 Evaluation Information Evaluation Date 11/03/18 PT-OP-B Current Condition Start: 11/03/18 13:06 Freq: Status: Active Protocol: Document 11/03/18 13:06 [facility] (Rec: 11/03/18 13:40 [facility] [email or web address]) Current Condition History of Current Condition Onset Date 11/26/2017 Current Complaints c/o swelling, pain, and stiffness s/p left partial knee replacement History of Current Condition left partial knee replacement for the lateral joint was performed on 11/26/[address] Nielsen. Leah went home the same day as surgery. She notes she was given a pamplet of exercises but has not started doing them. She has not worn her compression stockings x 3 days now and she questions if she should return to wearing them due to a increase in edema in her left leg in the past few days. She is using both a cane for shorter distances and a fww for longer distances. She does have stairs in her house but does not need to use them at this time. Her next doctors appointment is 11/09/18 Treatment Goals Patient/Caregiver Goals to return to full ROM of her left LE, decrease pain, decrease swelling, and improve mobility Current Functional Impairments (Reported) Functional Limitations- ADL's limited in activies that require bending, lifting, walking up and down stairs Functional Limitations- Mobility/Gait limited with mobility and gait , using a spc as well as FWW for assistance PT-OP-C Subjective Start: 11/03/18 13:06 Freq: Status: Active Protocol: Document 12/29/18 11:21 LRN (Rec: 12/29/18 12:45 LRN [id number]) OP-PT Subjective Patient Comments Patient Comments States the hip pain is gone for the most part, ocassional pain in the groin. Marilee miller is numb for the past 3 days. Has been doing more, kneeled twice, before the numbness started. Has ordered cork to put the lift in all her shoes. PT-OP-F Manual Assessment Start: 11/03/18 13:06 Freq: Status: Active Protocol: Document 11/03/18 13:06 [facility] (Rec: 11/03/18 13:40 [facility] [email or web address]) Manual Assessments Soft Tissue Assessment Soft Tissue Mobility Assessment swelling noted from the left knee to the ankle and foot with pitting edema in the left dorsal foot PT-OP-G Mobility & Gait Start: 11/03/18 13:06 Freq: Status: Active Protocol: Document 11/03/18 17:29 [facility] (Rec: 11/03/18 17:30 [facility] [email or web address]) OP Gait Assessment Gait Gait Assistance Required: Independent Assistive Devices Assistive Device Straight Cane Gait Deviations General Gait Pattern Antalgic Decreased Stride Length Flexed Trunk Step-to Gait Factors Limiting Gait Function Factors Limiting Gait Function Decreased Activity Tolerance Decreased Strength Limited Range of Motion Pain Stair Climbing Evaluation Technique/Endurance Stair Climbing Technique Step to Step Comments Stair Climbing Comments pain with stairs PT-OP-K Range of Motion Start: 11/03/18 13:06 Freq: Status: Active Protocol: Document 12/01/18 17:12 [facility] (Rec: 12/01/18 17:29 [facility] [email or web address]) Knee Goniometric Range of Motion Knee Measured in Degrees Right Knee ROM WFL Yes Left Patient Position Supine Flexion Active (degrees) 119 Flexion Passive (degrees) 120 Extension Active (degrees) 5 Extension Passive (degrees) 4 PT-OP-M Strength Start: 11/03/18 13:06 Freq: Status: Active Protocol: Document 11/03/18 13:06 [facility] (Rec: 11/03/18 13:40 [facility] [email or web address]) Knee Strength Knee Manual Muscle Testing Left Flexion (S2) 2+ Poor+ Extension (L3) 2 Poor PT-OP-Q Treatments Start: 11/03/18 13:06 Freq: Status: Active Protocol: Document 12/29/18 11:21 LRN (Rec: 12/29/18 12:45 LRN [id number]) Gym Equipment Cable Column (Body Solid) Leg Curl Details Seat 4 holes showing Resistance 20# Reps/Time 30x Hip Abduction Details seated hip abduction Resistance 20# Reps/Time 3 x 10 reps Shuttle Recovery Other- 1 Details unilateral squats Resistance 25# Reps/Time 3 x 10 Bilateral Squats Details bilateral squats Resistance 62# Reps/Time 3 x 10 reps Therapeutic Exercises Supine Exercises T-Ball hip flex & rot Supine Exercise Name Core stabilization Reps/Minutes 30x each 3 Supine Exercise Name supine ball rolls with core stabiliztion Side bilateral Reps/Minutes 30 reps Comments pt has a ball at home, ball rolls were easier than heel slides for her Standing Exercises Iliopsoas stretch Standing Exercise Name L foot on step Side right Reps/Minutes 5' Comments followed immediately with active hip ext x 10 3 Standing Exercise Name standing rosetta stretch 2 Standing Exercise Name squats w/Lev 2 T-Band around knees Side bilateral Resistance Lev 2 T-Band Comments with goal to functionally reach floor Manual Therapy Treatment Joint Mobilizations 2 Joint right hip manual mobilization with movement for hip distraction with IR/ER Manual Techniques 1 Type right LE distraction PT-OP-R Modalities Start: 11/03/18 13:06 Freq: Status: Active Protocol: Document 12/15/18 14:47 [facility] (Rec: 12/15/18 15:00 [facility] [email or web address]) Hot Pack/Cold Pack Treatment cryo cuff Location left knee Patient Position Hooklying Treatment Duration (minutes) 10 Patient Tolerance Good Comments with LE elevated Heat to the low back PT-OP-T Assessment and Plan Start: 11/03/18 13:06 Freq: Status: Active Protocol: Document 12/29/18 11:21 LRN (Rec: 12/29/18 12:45 LRN [id number]) Physical Therapy Assessment Assessment Summary Assessment Squatting limited by onset of R anterior groin pain with squat exercise. Pt had fair understanding of Iliopsoas stretch in standing for HEP; therefore review may be needed (with follow up active hip ext). Physical Therapy Plan Frequency and Duration Frequency of Treatment 2x/Week Duration of Treatment 8 Plan of Care Start Date 12/01/18 Plan of Care End Date 02/16/19 Next Visit Focus/Plan Next Note Type Treatment Note Next Visit Plan Work on end range left knee ROM and strengthening, and stabilization at the R hip for pt ability to functionally squat without R anterior hip pain. Monitor area of decreased sensation to soft touch of the L knee.
--- NOTE | 2019-01-01 12:34 | PT.OTN ---
Current Diagnoses Unilateral primary osteoarthritis, left knee (01/01/19) Physical Therapy Treatment Note PT-OP-A Visit Information Start: 11/03/18 13:06 Freq: Status: Active Protocol: Document 01/01/19 11:28 LRN (Rec: 01/01/19 12:29 LRN [id number]) Out-Patient Physical Therapy Visit Information Visit Information Visit Type Treatment Note Visit Note New referral received for treatment of: Osteoarthritis of R hip. Visit Start Time 11:28 Visit Stop Time 12:20 Total Visit Minutes 52 Visit Number 13 Number of LIBRARY CLERICAL ASSISTANT Visits 0 Evaluation Information Evaluation Date 11/03/18 PT-OP-B Current Condition Start: 11/03/18 13:06 Freq: Status: Active Protocol: Document 11/03/18 13:06 [facility] (Rec: 11/03/18 13:40 [facility] [email or web address]) Current Condition History of Current Condition Onset Date 11/26/2017 Current Complaints c/o swelling, pain, and stiffness s/p left partial knee replacement History of Current Condition left partial knee replacement for the lateral joint was performed on 11/26/[address] Nielsen. Leah went home the same day as surgery. She notes she was given a pamplet of exercises but has not started doing them. She has not worn her compression stockings x 3 days now and she questions if she should return to wearing them due to a increase in edema in her left leg in the past few days. She is using both a cane for shorter distances and a fww for longer distances. She does have stairs in her house but does not need to use them at this time. Her next doctors appointment is 11/09/18 Treatment Goals Patient/Caregiver Goals to return to full ROM of her left LE, decrease pain, decrease swelling, and improve mobility Current Functional Impairments (Reported) Functional Limitations- ADL's limited in activies that require bending, lifting, walking up and down stairs Functional Limitations- Mobility/Gait limited with mobility and gait , using a spc as well as FWW for assistance PT-OP-C Subjective Start: 11/03/18 13:06 Freq: Status: Active Protocol: Document 01/01/19 11:28 LRN (Rec: 01/01/19 12:29 LRN [id number]) OP-PT Subjective Patient Comments Patient Comments A little R groin pain once, has not been using ice to knee , has been trying to elevate it. PT-OP-F Manual Assessment Start: 11/03/18 13:06 Freq: Status: Active Protocol: Document 11/03/18 13:06 [facility] (Rec: 11/03/18 13:40 [facility] [email or web address]) Manual Assessments Soft Tissue Assessment Soft Tissue Mobility Assessment swelling noted from the left knee to the ankle and foot with pitting edema in the left dorsal foot PT-OP-G Mobility & Gait Start: 11/03/18 13:06 Freq: Status: Active Protocol: Document 11/03/18 17:29 [facility] (Rec: 11/03/18 17:30 [facility] [email or web address]) OP Gait Assessment Gait Gait Assistance Required: Independent Assistive Devices Assistive Device Straight Cane Gait Deviations General Gait Pattern Antalgic Decreased Stride Length Flexed Trunk Step-to Gait Factors Limiting Gait Function Factors Limiting Gait Function Decreased Activity Tolerance Decreased Strength Limited Range of Motion Pain Stair Climbing Evaluation Technique/Endurance Stair Climbing Technique Step to Step Comments Stair Climbing Comments pain with stairs PT-OP-K Range of Motion Start: 11/03/18 13:06 Freq: Status: Active Protocol: Document 01/01/19 11:28 LRN (Rec: 01/01/19 12:33 LRN [id number]) Knee Goniometric Range of Motion Knee Measured in Degrees Right Extension Active (degrees) 5 Extension Passive (degrees) 4 Left Patient Position Supine Flexion Active (degrees) 125 Flexion Passive (degrees) 127 Extension Active (degrees) 5 Extension Passive (degrees) 4 PT-OP-M Strength Start: 11/03/18 13:06 Freq: Status: Active Protocol: Document 11/03/18 13:06 [facility] (Rec: 11/03/18 13:40 [facility] [email or web address]) Knee Strength Knee Manual Muscle Testing Left Flexion (S2) 2+ Poor+ Extension (L3) 2 Poor PT-OP-Q Treatments Start: 11/03/18 13:06 Freq: Status: Active Protocol: Document 01/01/19 11:28 LRN (Rec: 01/01/19 12:29 LRN [id number]) Gym Equipment Cable Column (Body Solid) Knee ext Details Seat 4 holes showing Resistance 20# Reps/Time 5 Leg Curl Details Seat 4 holes showing Resistance 20# Reps/Time 30x Hip Abduction Details seated hip abduction Resistance 20# Reps/Time 3 x 10 reps Shuttle Recovery Bilateral Squats Details bilateral squats Resistance 75# Reps/Time 3 x 10 reps Start position ~ 75 deg's knee flex Therapeutic Exercises Supine Exercises T-Ball hip flex & rot Supine Exercise Name Core stab and hip flex ROM/ strengthening 3 Supine Exercise Name supine ball rolls with core stabiliztion Side bilateral Reps/Minutes 30 reps Comments pt has a ball at home, ball rolls were easier than heel slides for her Standing Exercises Squatting strengthening Standing Exercise Name Hands on step stool squatting Reps/Minutes 3' Comments With standing rests Manual Therapy Treatment Soft Tissue Mobilization R Lumbar paraspinals Mobilization Type Strumming Sustained Pressure Intensity/Depth Moderate Body Position Prone Comments Upper lumbar Joint Mobilizations Lumbar Joint L2-L4 Direction L rot to correct for R rotated L/S Grade II Body Position Prone Reps/Duration 8' Comments Oscillations Manual Techniques MWM R hip Type Posterior glide of femoral head with hip flex Reps/Duration 3' Comments Supine with DKTC using Lgt Blue T-Ball PT-OP-R Modalities Start: 11/03/18 13:06 Freq: Status: Active Protocol: Document 01/01/19 11:28 LRN (Rec: 01/01/19 12:29 LRN [id number]) Hot Pack/Cold Pack Treatment Cold Pack Location L knee Patient Position Supine Treatment Duration (minutes) 10 Comments LLE elevated Hot Pack Location low back Treatment Duration (minutes) 10 Comments During use of Cold pack. PT-OP-T Assessment and Plan Start: 11/03/18 13:06 Freq: Status: Active Protocol: Document 01/01/19 11:28 LRN (Rec: 01/01/19 12:29 LRN [id number]) Physical Therapy Assessment Assessment Summary Assessment Pt was able to squat today without pain after MWM treatment. Review needed ( with follow up active hip ext) for standing Iliopsoas stretch. L knee ext is WNL, flexion is 125 deg's active, 127 deg's passive. Physical Therapy Plan Frequency and Duration Frequency of Treatment 2x/Week Duration of Treatment 8 Plan of Care Start Date 12/01/18 Plan of Care End Date 02/16/19 Next Visit Focus/Plan Next Note Type Treatment Note Next Visit Plan Monitor end range left knee flexion and progress strengthening, stabilize core for functional squat without R anterior hip pain. Monitor L knee area for decreased sensation.
--- NOTE | 2019-01-05 16:41 | PT.OTN ---
Current Diagnoses Unilateral primary osteoarthritis, left knee (01/05/19) Physical Therapy Treatment Note PT-OP-A Visit Information Start: 11/03/18 13:06 Freq: Status: Active Protocol: Document 01/05/19 12:48 LRN (Rec: 01/05/19 14:05 LRN [id number]) Out-Patient Physical Therapy Visit Information Visit Information Visit Type Treatment Note Visit Note New referral received for treatment of: Osteoarthritis of R hip. Visit Start Time 12:48 Visit Stop Time 13:40 Total Visit Minutes 52 Visit Number 14 Number of GEAR HOBBER OPERATOR Visits 0 Evaluation Information Evaluation Date 11/03/18 PT-OP-B Current Condition Start: 11/03/18 13:06 Freq: Status: Active Protocol: Document 11/03/18 13:06 [facility] (Rec: 11/03/18 13:40 [facility] [email or web address]) Current Condition History of Current Condition Onset Date 11/26/2017 Current Complaints c/o swelling, pain, and stiffness s/p left partial knee replacement History of Current Condition left partial knee replacement for the lateral joint was performed on 11/26/[address] Nielsen. Leah went home the same day as surgery. She notes she was given a pamplet of exercises but has not started doing them. She has not worn her compression stockings x 3 days now and she questions if she should return to wearing them due to a increase in edema in her left leg in the past few days. She is using both a cane for shorter distances and a fww for longer distances. She does have stairs in her house but does not need to use them at this time. Her next doctors appointment is 11/09/18 Treatment Goals Patient/Caregiver Goals to return to full ROM of her left LE, decrease pain, decrease swelling, and improve mobility Current Functional Impairments (Reported) Functional Limitations- ADL's limited in activies that require bending, lifting, walking up and down stairs Functional Limitations- Mobility/Gait limited with mobility and gait , using a spc as well as FWW for assistance PT-OP-C Subjective Start: 11/03/18 13:06 Freq: Status: Active Protocol: Document 01/05/19 12:48 LRN (Rec: 01/05/19 14:05 LRN [id number]) OP-PT Subjective Patient Comments Patient Comments Today no R hip/groin pain, and L knee feels fine. Yesterday woke with groin pain and had it all day and had to take an Alleve & IBP before bed. Next day no pain. Feels like her knee has been rehabed, she wants help with being able to put her socks and shoes on. PT-OP-F Manual Assessment Start: 11/03/18 13:06 Freq: Status: Active Protocol: Document 11/03/18 13:06 [facility] (Rec: 11/03/18 13:40 [facility] [email or web address]) Manual Assessments Soft Tissue Assessment Soft Tissue Mobility Assessment swelling noted from the left knee to the ankle and foot with pitting edema in the left dorsal foot PT-OP-G Mobility & Gait Start: 11/03/18 13:06 Freq: Status: Active Protocol: Document 11/03/18 17:29 [facility] (Rec: 11/03/18 17:30 [facility] [email or web address]) OP Gait Assessment Gait Gait Assistance Required: Independent Assistive Devices Assistive Device Straight Cane Gait Deviations General Gait Pattern Antalgic Decreased Stride Length Flexed Trunk Step-to Gait Factors Limiting Gait Function Factors Limiting Gait Function Decreased Activity Tolerance Decreased Strength Limited Range of Motion Pain Stair Climbing Evaluation Technique/Endurance Stair Climbing Technique Step to Step Comments Stair Climbing Comments pain with stairs PT-OP-K Range of Motion Start: 11/03/18 13:06 Freq: Status: Active Protocol: Document 01/01/19 11:28 LRN (Rec: 01/01/19 12:33 LRN [id number]) Knee Goniometric Range of Motion Knee Measured in Degrees Right Extension Active (degrees) 5 Extension Passive (degrees) 4 Left Patient Position Supine Flexion Active (degrees) 125 Flexion Passive (degrees) 127 Extension Active (degrees) 5 Extension Passive (degrees) 4 PT-OP-M Strength Start: 11/03/18 13:06 Freq: Status: Active Protocol: Document 11/03/18 13:06 [facility] (Rec: 11/03/18 13:40 [facility] [email or web address]) Knee Strength Knee Manual Muscle Testing Left Flexion (S2) 2+ Poor+ Extension (L3) 2 Poor PT-OP-Q Treatments Start: 11/03/18 13:06 Freq: Status: Active Protocol: Document 01/05/19 12:48 LRN (Rec: 01/05/19 14:05 LRN [id number]) Cardio Equipment Bicycle (Upright) Duration (Minutes) 10 Resistance 2 Seat Position 3 Gym Equipment Cable Column (Body Solid) Knee ext Details Seat 4 holes showing Resistance 20# Reps/Time 5 Leg Curl Details Seat 4 holes showing Resistance 20# Reps/Time 30x Shuttle Recovery Other- 1 Details unilateral squats Resistance 25# Reps/Time 3 x 10 Therapeutic Exercises Supine Exercises Active hip ER Supine Exercise Name Hip ER immediately after ER stretch Side right Reps/Minutes 10x after each stretch 10 Supine Exercise Name R hip ER: modified Fig 4 stretch Side right Comments R foot by L upper thigh and crossed over L knee. 8 Supine Exercise Name quad set Side left Reps/Minutes 5 reps active and 5 with assistance Comments with therapist over-pressure to increase knee extension ROM Sitting Exercises R hip stretch Sitting Exercise Name ER: leg on table and Foot over opposite knee Side right Comments Easier with leg on table Standing Exercises Step ups Standing Exercise Name Holding railing step ups Side bilateral Equipment Used 1st 6 step Reps/Minutes 10x2 each leg leading 3 Standing Exercise Name standing rosetta stretch Therapeutic Activity Therapeutic Activity Body mechanics training Name Training for donning shoes on Right Reps/Minutes 4' Self-Care/Home Management Treatment Education Patient Education Home Exercise Program Other Education Discussed pt use of cruise control when driving long distance to prevent rotation of R innominate. Activities Self-Care/Home Management Activities I/S pt in hip ER stretch with immediately following with active ER, & step ups at home. Encouraged pt ot use crotherapy in R groin if painful. PT-OP-R Modalities Start: 11/03/18 13:06 Freq: Status: Active Protocol: Document 01/05/19 12:48 LRN (Rec: 01/05/19 14:05 [facility] [id number]) Hot Pack/Cold Pack Treatment Cold Pack Location L knee & R groin Patient Position Supine Treatment Duration (minutes) 10 Comments LLE elevated PT-OP-T Assessment and Plan Start: 11/03/18 13:06 Freq: Status: Active Protocol: Document 01/05/19 12:48 LRN (Rec: 01/05/19 14:05 [facility] [id number]) Physical Therapy Assessment Goals Five Impairment Decreased R hip mobility limiting donning of R sock/ shoe Short Term Goal (STG) Pt will be able to Rotate at the R hip enough to reach her toes in order to don her R sock and shoe. STG Duration 02/16/19 Four Impairment impaired gait Loss Mitigation Specialist Goal (LTG) The patient is demonstrating an improved gait pattern without use of a assistive device and improved heel strike. She is able to go up and down stairs without pain LTG Duration 6-8 weeks (01/05/19: Goal Met except intermittent groin pain ) Three Impairment swelling and edema of the left LE from the knee to the foot Short Term Goal (STG) Decrease swelling in the left LE with manual therapy techniques, modalities and ther ex. Currently the left (joint line is 47 cm and the right is 40 cm) STG Duration 4-5 weeks (01/05/19: Goal Met, Left girth is 42.5 cm) Two Impairment Decreased strength of the left knee Loss Mitigation Specialist Goal (LTG) Improve strength of the left knee including the ability to fully perform a quad squeeze in full knee extension and the patient is able to demonstrate functional strengh of left knee strength with a standing squat LTG Duration 6-8 weeks (01/05/19: Goal Partially Met. Quad squeeze present) One Impairment Decreased left knee ROM Short Term Goal (STG) improve ROM of the left knee from where it is now at( 50 AROM and 75 PROM) to 120 deg AROM flexion or better and Leah is able to fully extend her knee to 0 STG Duration 6 weeks (01/05/19: Goal Met, AROM: 0-122 deg's, PROM: 0-125 deg's) Progress Towards Goals Progress Towards Goals Progressing Toward Goals Progress Comments Goal 4: Met. No pain with stairs unless having R groin pain. Goal 3: Met. Edema L knee greatly reduced. Goal 2: Partially Met. (01/05: Able to palpate Medial Quad contraction, not assessed for standing squat) Goal 1: Met (01/05/19: L knee AROM 0-122 deg's). Assessment Summary Assessment Pt thinks she is able to squat if she remembers to do it correctly, but not assessed. Pt's L knee ROM is WFL, she has no knee pain with stair ambulation and the swelling at the L knee has been greatly reduced. With stair ambulation she had no pain, but notes pain only when there is groin pain. Pt would like to be able to achieve the ability to cross the R leg over the L knee to put socks or shoes on. Physical Therapy Plan Frequency and Duration Frequency of Treatment 2x/Week Duration of Treatment 8 Plan of Care Start Date 12/01/18 Plan of Care End Date 02/16/19 Next Visit Focus/Plan Next Note Type Treatment Note Next Visit Plan Monitor L knee sensation, recheck squat ability, issue HEP for hip ER stretch and strengthening of the core. Discuss DC if pt able to squat or cont. to achieve goal to put R socks/shoes on.
--- NOTE | 2019-01-19 16:33 | PT.OTN ---
Current Diagnoses Unilateral primary osteoarthritis, left knee (01/19/19) Physical Therapy Treatment Note PT-OP-A Visit Information Start: 11/03/18 13:06 Freq: Status: Active Protocol: Document 01/19/19 11:18 LRN (Rec: 01/19/19 12:21 LRN [id number]) Out-Patient Physical Therapy Visit Information Visit Information Visit Type Treatment Note Visit Note New referral received for treatment of: Osteoarthritis of R hip. Visit Start Time 11:18 Visit Stop Time 12:06 Total Visit Minutes 48 Visit Number 16 Number of GEOPHYSICAL PROSPECTOR Visits 0 Evaluation Information Evaluation Date 11/03/18 PT-OP-B Current Condition Start: 11/03/18 13:06 Freq: Status: Active Protocol: Document 11/03/18 13:06 [facility] (Rec: 11/03/18 13:40 [facility] [email or web address]) Current Condition History of Current Condition Onset Date 11/26/2017 Current Complaints c/o swelling, pain, and stiffness s/p left partial knee replacement History of Current Condition left partial knee replacement for the lateral joint was performed on 11/26/[address] Nielsen. Leah went home the same day as surgery. She notes she was given a pamplet of exercises but has not started doing them. She has not worn her compression stockings x 3 days now and she questions if she should return to wearing them due to a increase in edema in her left leg in the past few days. She is using both a cane for shorter distances and a fww for longer distances. She does have stairs in her house but does not need to use them at this time. Her next doctors appointment is 11/09/18 Treatment Goals Patient/Caregiver Goals to return to full ROM of her left LE, decrease pain, decrease swelling, and improve mobility Current Functional Impairments (Reported) Functional Limitations- ADL's limited in activies that require bending, lifting, walking up and down stairs Functional Limitations- Mobility/Gait limited with mobility and gait , using a spc as well as FWW for assistance PT-OP-C Subjective Start: 11/03/18 13:06 Freq: Status: Active Protocol: Document 01/19/19 11:18 LRN (Rec: 01/19/19 12:21 LRN [id number]) OP-PT Subjective Patient Comments Patient Comments Was doing good until the day before yesterday because she did a lot of walking on her [place] trip to bury her sister. Today R hip pain. No groin pain. PT-OP-F Manual Assessment Start: 11/03/18 13:06 Freq: Status: Active Protocol: Document 11/03/18 13:06 [facility] (Rec: 11/03/18 13:40 [facility]H [email or web address]) Manual Assessments Soft Tissue Assessment Soft Tissue Mobility Assessment swelling noted from the left knee to the ankle and foot with pitting edema in the left dorsal foot PT-OP-G Mobility & Gait Start: 11/03/18 13:06 Freq: Status: Active Protocol: Document 11/03/18 17:29 AMH (Rec: 11/03/18 17:30 AMH [email or web address]) OP Gait Assessment Gait Gait Assistance Required: Independent Assistive Devices Assistive Device Straight Cane Gait Deviations General Gait Pattern Antalgic Decreased Stride Length Flexed Trunk Step-to Gait Factors Limiting Gait Function Factors Limiting Gait Function Decreased Activity Tolerance Decreased Strength Limited Range of Motion Pain Stair Climbing Evaluation Technique/Endurance Stair Climbing Technique Step to Step Comments Stair Climbing Comments pain with stairs PT-OP-K Range of Motion Start: 11/03/18 13:06 Freq: Status: Active Protocol: Document 01/01/19 11:28 LRN (Rec: 01/01/19 12:33 LRN [id number]) Knee Goniometric Range of Motion Knee Measured in Degrees Right Extension Active (degrees) 5 Extension Passive (degrees) 4 Left Patient Position Supine Flexion Active (degrees) 125 Flexion Passive (degrees) 127 Extension Active (degrees) 5 Extension Passive (degrees) 4 PT-OP-M Strength Start: 11/03/18 13:06 Freq: Status: Active Protocol: Document 11/03/18 13:06 [facility] (Rec: 11/03/18 13:40 [facility] [email or web address]) Knee Strength Knee Manual Muscle Testing Left Flexion (S2) 2+ Poor+ Extension (L3) 2 Poor PT-OP-Q Treatments Start: 11/03/18 13:06 Freq: Status: Active Protocol: Document 01/19/19 11:18 LRN (Rec: 01/19/19 12:21 LRN [id number]) Therapeutic Exercises Supine Exercises Trunk rotation stretch Supine Exercise Name Knee rolls right, trunk rotation R & L (R>L) Reps/Minutes 10 x, 10 sec holds each Comments Upper trunk R rotation 6 Supine Exercise Name bridges with DLS Reps/Minutes 3x Comments DC'd due to R LBP Standing Exercises R lateral trunk stretch Standing Exercise Name L SB Reps/Minutes 10 x, Hold 10 sec's Comments Return to visual neutral vs pt perceived neutral L Trunk rotation Standing Exercise Name PNF woodchop Side left Resistance Lev 2 T-Band Reps/Minutes 15x Comments Return to visual neutral vs pt 's perceived neutral. Manual Therapy Treatment Soft Tissue Mobilization R Lumbar paraspinals Mobilization Type Strumming Sustained Pressure Intensity/Depth Moderate Body Position Prone Comments Upper lumbar Joint Mobilizations Lumbar Joint L2-L4 Direction L rot to correct for R rotated L/S Grade II Body Position Prone Reps/Duration 8' Comments Oscillations Manual Techniques Low back Type MWM: L2, L3-L5 L rotation and lift Body Location L2-L4 Body Position Standing Comments MWM during gait: Self-Care/Home Management Treatment Education Patient Education Posture Other Education Postural awareness education for R SB and R rot posturing of the thoracic and lumbar spine. PT-OP-R Modalities Start: 11/03/18 13:06 Freq: Status: Active Protocol: Document 01/19/19 11:18 LRN (Rec: 01/19/19 12:21 LRN [id number]) Hot Pack/Cold Pack Treatment Cold Pack Location Thoracic & lumbar spine Patient Position Supine Treatment Duration (minutes) 10 Comments LLE elevated PT-OP-T Assessment and Plan Start: 11/03/18 13:06 Freq: Status: Active Protocol: Document 01/19/19 11:18 LRN (Rec: 01/19/19 12:21 LRN [id number]) Physical Therapy Assessment Assessment Summary Assessment No c/o's of R knee pain. After MWM of L/S pt had no R hip pain with gait. No groin pain. Pt appears to have a better understanding of postural correction techniques , but pt has poor awareness in general of her posture. Physical Therapy Plan Frequency and Duration Frequency of Treatment 2x/Week Duration of Treatment 8 Plan of Care Start Date 12/01/18 Plan of Care End Date 02/16/19 Next Visit Focus/Plan Next Note Type Treatment Note Next Visit Plan Progress and issue HEP for R hip ER stretch (for donning socks/shoes) and core stabilization. Monitor L knee ROM for end-range tightness and stabilize. Stabilize R hip/pelvis and core to eliminate R groin pain with goal for pt to cross R leg over opposite knee to don socks/shoes.
--- NOTE | 2019-01-22 14:33 | PT.OTN ---
Current Diagnoses Unilateral primary osteoarthritis, left knee (01/22/19) Physical Therapy Treatment Note PT-OP-A Visit Information Start: 11/03/18 13:06 Freq: Status: Active Protocol: Document 01/22/19 11:45 LRN (Rec: 01/22/19 12:38 LRN [id number]) Out-Patient Physical Therapy Visit Information Visit Information Visit Type Treatment Note Visit Note New referral received for treatment of: Osteoarthritis of R hip. Visit Start Time 11:45 Visit Stop Time 12:30 Total Visit Minutes 45 Visit Number 17 Number of BUSINESS OFFICE ASSOCIATE Visits 0 Evaluation Information Evaluation Date 11/03/18 PT-OP-B Current Condition Start: 11/03/18 13:06 Freq: Status: Active Protocol: Document 11/03/18 13:06 [facility] (Rec: 11/03/18 13:40 [facility] [email or web address]) Current Condition History of Current Condition Onset Date 11/26/2017 Current Complaints c/o swelling, pain, and stiffness s/p left partial knee replacement History of Current Condition left partial knee replacement for the lateral joint was performed on 11/26/[address] Nielsen. Leah went home the same day as surgery. She notes she was given a pamplet of exercises but has not started doing them. She has not worn her compression stockings x 3 days now and she questions if she should return to wearing them due to a increase in edema in her left leg in the past few days. She is using both a cane for shorter distances and a fww for longer distances. She does have stairs in her house but does not need to use them at this time. Her next doctors appointment is 11/09/18 Treatment Goals Patient/Caregiver Goals to return to full ROM of her left LE, decrease pain, decrease swelling, and improve mobility Current Functional Impairments (Reported) Functional Limitations- ADL's limited in activies that require bending, lifting, walking up and down stairs Functional Limitations- Mobility/Gait limited with mobility and gait , using a spc as well as FWW for assistance PT-OP-C Subjective Start: 11/03/18 13:06 Freq: Status: Active Protocol: Document 01/22/19 11:45 LRN (Rec: 01/22/19 12:38 LRN [id number]) OP-PT Subjective Patient Comments Patient Comments States her back has been hurting. Isn't aware of how much her hip has been hurting. No groin pain today. PT-OP-F Manual Assessment Start: 11/03/18 13:06 Freq: Status: Active Protocol: Document 11/03/18 13:06 [facility] (Rec: 11/03/18 13:40 [facility] [email or web address]) Manual Assessments Soft Tissue Assessment Soft Tissue Mobility Assessment swelling noted from the left knee to the ankle and foot with pitting edema in the left dorsal foot PT-OP-G Mobility & Gait Start: 11/03/18 13:06 Freq: Status: Active Protocol: Document 11/03/18 17:29 [facility] (Rec: 11/03/18 17:30 [facility] [email or web address]) OP Gait Assessment Gait Gait Assistance Required: Independent Assistive Devices Assistive Device Straight Cane Gait Deviations General Gait Pattern Antalgic Decreased Stride Length Flexed Trunk Step-to Gait Factors Limiting Gait Function Factors Limiting Gait Function Decreased Activity Tolerance Decreased Strength Limited Range of Motion Pain Stair Climbing Evaluation Technique/Endurance Stair Climbing Technique Step to Step Comments Stair Climbing Comments pain with stairs PT-OP-K Range of Motion Start: 11/03/18 13:06 Freq: Status: Active Protocol: Document 01/22/19 11:45 LRN (Rec: 01/22/19 12:38 LRN [id number]) Knee Goniometric Range of Motion Knee Measured in Degrees Right Flexion Active (degrees) 135 Left Flexion Active (degrees) 125 PT-OP-M Strength Start: 11/03/18 13:06 Freq: Status: Active Protocol: Document 11/03/18 13:06 [facility] (Rec: 11/03/18 13:40 [facility] [email or web address]) Knee Strength Knee Manual Muscle Testing Left Flexion (S2) 2+ Poor+ Extension (L3) 2 Poor PT-OP-Q Treatments Start: 11/03/18 13:06 Freq: Status: Active Protocol: Document 01/22/19 11:45 LRN (Rec: 01/22/19 12:38 LRN [id number]) Cardio Equipment Bicycle (Upright) Duration (Minutes) 8 Resistance 3 Seat Position 3 Gym Equipment Cable Column (Body Solid) Leg Curl Details Seat 4 holes showing Resistance 30# Reps/Time 30x Hip Abduction Details seated hip abduction Resistance 20# Reps/Time 30 reps Therapeutic Exercises Supine Exercises Active hip ER Supine Exercise Name Hip ER immediately after ER stretch Side right Reps/Minutes 10x after each stretch 3 Supine Exercise Name T-Ball rolls into knee flexion Side bilateral Reps/Minutes 30 reps Prone Exercises 2 Prone Exercise Name hip IR/ER Side right Comments therapist assisted stretch, & c/R stretch into ER 1 Prone Exercise Name prone knee flexion Reps/Minutes 2 x 10 reps Comments pt stayed in the prone position for manual stretching following the exercis Sitting Exercises R hip stretch Sitting Exercise Name ER: leg on stool and Foot over opposite knee Side right Comments Easier with leg on table Therapeutic Activity Therapeutic Activity Body mechanics training Name Gardening Reps/Minutes 8 Transfer training Name Sit to stand from low surface x2 of gardening position Reps/Minutes 7 Manual Therapy Treatment Soft Tissue Mobilization R Lumbar paraspinals Mobilization Type Strumming Sustained Pressure Intensity/Depth Moderate Body Position Prone Comments Upper lumbar Joint Mobilizations Lumbar Joint L2-L4 Direction L rot to correct for R rotated L/S Grade II Body Position Prone Reps/Duration 3' Comments Oscillations Self-Care/Home Management Treatment Education Patient Education Pain Management Activities Self-Care/Home Management Activities Pt I/S to break up gardening activities, limiting to 10' at a time and reposturing every 10' to avoid strain on the back. PT-OP-R Modalities Start: 11/03/18 13:06 Freq: Status: Active Protocol: Document 01/22/19 11:45 LRN (Rec: 01/22/19 12:38 LRN [id number]) Hot Pack/Cold Pack Treatment Cold Pack Location L knee & R groin Patient Position Supine Treatment Duration (minutes) 10 Comments LLE elevated PT-OP-T Assessment and Plan Start: 11/03/18 13:06 Freq: Status: Active Protocol: Document 01/22/19 11:45 LRN (Rec: 01/22/19 12:38 LRN [id number]) Physical Therapy Assessment Goals Five Impairment Decreased R hip mobility limiting donning of R sock/ shoe Short Term Goal (STG) Pt will be able to Rotate at the R hip enough to reach her toes in order to don her R sock and shoe. STG Duration 02/16/19 Four Impairment impaired gait Group Home Goal (LTG) The patient is demonstrating an improved gait pattern without use of a assistive device and improved heel strike. She is able to go up and down stairs without pain LTG Duration 6-8 weeks (01/05/19: Goal Met except intermittent groin pain ) Three Impairment swelling and edema of the left LE from the knee to the foot STG Duration GOAL MET. Two Impairment Decreased strength of the left knee Lmsw Goal (LTG) Improve strength of the left knee including the ability to fully perform a quad squeeze in full knee extension and the patient is able to demonstrate functional strengh of left knee strength with a standing squat LTG Duration 6-8 weeks (01/05/19: Goal Partially Met. Quad squeeze present) One Impairment Decreased left knee ROM STG Duration GOAL MET Progress Towards Goals Progress Towards Goals Progressing Toward Goals Progress Comments Goal 5: Slow Progress, limited by R groin pain with ER stretch. Goal 4: MET. No knee pain, pain in R groin. Goal 3: MET. Edema L knee reduced. Goal 2: Partially Met. (01/05: Able to palpate Medial Quad contraction, not assessed for standing squat) Goal 1: MET (01/22/19: L knee AROM 0-125 deg's). Assessment Summary Assessment Onset of R groin pain with stretching R hip into ER for donning/doffing of shoe/socks. No onset of back pain with ex. Pt has poor back positioning with sitting and gardening type motion from a 12 & 8 seating surface. She was able to be trained to independently perform sit from standing on low surface (12 inch) without plopping (for gardening). Pt was not able to stand from an 8 surface. Pt L knee mobility is good at 125 degs flexion. Physical Therapy Plan Next Visit Focus/Plan Next Note Type Treatment Note Next Visit Plan Progress and issue HEP for R hip ER stretch (for donning socks/shoes) and core stabilization. Stabilize R hip/pelvis and core to eliminate R groin pain with goal for pt to cross R leg over opposite knee to don socks/shoes.
--- NOTE | 2019-02-12 15:53 | PT.OTN ---
Current Diagnoses Unilateral primary osteoarthritis, left knee (02/12/19) Physical Therapy Treatment Note PT-OP-A Visit Information Start: 11/03/18 13:06 Freq: Status: Active Protocol: Document 02/12/19 15:17 LRN (Rec: 02/12/19 15:53 LRN [id number]) Out-Patient Physical Therapy Visit Information Visit Information Visit Type Discharge Summary Visit Note New referral received for treatment of: Osteoarthritis of R hip. Visit Start Time 11:24 Visit Stop Time 12:05 Total Visit Minutes 41 Visit Number 18 Number of AIRCRA[employer] Visits 0 Evaluation Information Evaluation Date 11/03/18 PT-OP-B Current Condition Start: 11/03/18 13:06 Freq: Status: Active Protocol: Document 11/03/18 13:06 AMH (Rec: 11/03/18 13:40 AMH [id number]) Current Condition History of Current Condition Onset Date 11/26/2017 Current Complaints c/o swelling, pain, and stiffness s/p left partial knee replacement History of Current Condition left partial knee replacement for the lateral joint was performed on 11/26/[address] Nielsen. Leah went home the same day as surgery. She notes she was given a pamplet of exercises but has not started doing them. She has not worn her compression stockings x 3 days now and she questions if she should return to wearing them due to a increase in edema in her left leg in the past few days. She is using both a cane for shorter distances and a fww for longer distances. She does have stairs in her house but does not need to use them at this time. Her next doctors appointment is 11/09/18 Treatment Goals Patient/Caregiver Goals to return to full ROM of her left LE, decrease pain, decrease swelling, and improve mobility Current Functional Impairments (Reported) Functional Limitations- ADL's limited in activies that require bending, lifting, walking up and down stairs Functional Limitations- Mobility/Gait limited with mobility and gait , using a spc as well as FWW for assistance PT-OP-C Subjective Start: 11/03/18 13:06 Freq: Status: Active Protocol: Document 02/12/19 15:17 LRN (Rec: 02/12/19 15:53 LRN [id number]) OP-PT Subjective Patient Comments Patient Comments States she is feeling good. Occasionally she has R hip & L knee pain that is mainly at night. Notes she has a lot less energy and motivation, more tired and maybe a little depression. States she can don/doff socks and shoes pretty good. Walking better and no pain with stair ambulation. Patient Questionnaires Lower Extremity Functional Scale LEFS Score 46 LEFS Impairment 40 to 59% Impaired (Score 32- 47) OP-PT Pain Assessment Location R knee Pain Location Details Superior to patella Intensity 1 Scale Used Numeric (1 - 10) Frequency Occasional Right Groin Pain Location Details R groin Intensity 1 Scale Used Numeric (1 - 10) Description Aching Frequency Occasional PT-OP-F Manual Assessment Start: 11/03/18 13:06 Freq: Status: Active Protocol: Document 11/03/18 13:06 AMH (Rec: 11/03/18 13:40 AMH [id number]) Manual Assessments Soft Tissue Assessment Soft Tissue Mobility Assessment swelling noted from the left knee to the ankle and foot with pitting edema in the left dorsal foot PT-OP-G Mobility & Gait Start: 11/03/18 13:06 Freq: Status: Active Protocol: Document 02/12/19 15:17 LRN (Rec: 02/12/19 15:53 LRN [id number]) Stair Climbing Evaluation Evaluation Level of Assist On Stairs Independent Devices Stair Climbing Assistive Devices None Technique/Endurance Stair Climbing Direction Ascend and Descend Stair Climbing Technique Step Over Step Number of Steps Climbed 4 Comments Stair Climbing Comments Normal, no pain. PT-OP-J Posture/Palpation/Skin Start: 11/03/18 13:06 Freq: Status: Active Protocol: Document 02/12/19 15:17 LRN (Rec: 02/12/19 15:53 LRN [id number]) Posture Evaluation Comments Posture Comments In standing: Flat back PT-OP-K Range of Motion Start: 11/03/18 13:06 Freq: Status: Active Protocol: Document 02/12/19 15:17 LRN (Rec: 02/12/19 15:53 LRN [id number]) Knee Goniometric Range of Motion Knee Measured in Degrees Right Knee ROM WFL Yes Patient Position Supine Flexion Active (degrees) 134 Extension Active (degrees) 0 Left Knee ROM WFL No Patient Position Supine Flexion Active (degrees) 132 Extension Active (degrees) 0 PT-OP-M Strength Start: 11/03/18 13:06 Freq: Status: Active Protocol: Document 11/03/18 13:06 AMH (Rec: 11/03/18 13:40 AMH [id number]) Knee Strength Knee Manual Muscle Testing Left Flexion (S2) 2+ Poor+ Extension (L3) 2 Poor PT-OP-Q Treatments Start: 11/03/18 13:06 Freq: Status: Active Protocol: Document 02/12/19 15:17 LRN (Rec: 02/12/19 15:53 LRN [id number]) Therapeutic Exercises Supine Exercises Hip stretches Supine Exercise Name Iliopsoas, lateral hip, IR Side right Active hip ER Supine Exercise Name Hip ER immediately after ER stretch 10 Supine Exercise Name R hip ER: modified Fig 4 stretch Side right Comments Pillow supporting R LE. 8 Supine Exercise Name Quad set Side left Reps/Minutes 5x 3 Supine Exercise Name T-Ball rolls into knee flexion Side bilateral Reps/Minutes 30 reps Comments Knee AROM measurements taken Sitting Exercises R hip stretch Sitting Exercise Name ER: leg over opposite knee Side right Comments Easier with leg on table 1 Sitting Exercise Name seated knee flexion/ext stretch Side bilateral Reps/Minutes 3x Standing Exercises Squatting strengthening Standing Exercise Name Standing squat Reps/Minutes 1 Comments Pt able to stand and squat to her satisfaction. Gait Training Gait Activity 2 Description stairs Device Used None Level of Assistance None Distance/Duration 3' Comments Normal gait pattern, slight weakness noted stepping up on R LE. Self-Care/Home Management Treatment Education Patient Education Home Exercise Program Activities Self-Care/Home Management Activities Issued and reviewed HEP: Hip stretches (ER/IR) and progressive stability/core strengthening program. PT-OP-R Modalities Start: 11/03/18 13:06 Freq: Status: Active Protocol: Document 01/22/19 11:45 LRN (Rec: 01/22/19 12:38 LRN [id number]) Hot Pack/Cold Pack Treatment Cold Pack Location L knee & R groin Patient Position Supine Treatment Duration (minutes) 10 Comments LLE elevated PT-OP-T Assessment and Plan Start: 11/03/18 13:06 Freq: Status: Active Protocol: Document 02/12/19 15:17 LRN (Rec: 02/12/19 15:53 LRN [id number]) Physical Therapy Assessment Goals Five Impairment Decreased R hip mobility limiting donning of R sock/ shoe Short Term Goal (STG) Pt will be able to Rotate at the R hip enough to reach her toes in order to don her R sock and shoe. STG Duration 02/16/19 (02/12/19: GOAL MET) Four Impairment impaired gait Senior Care Goal (LTG) The patient is demonstrating an improved gait pattern without use of a assistive device and improved heel strike. She is able to go up and down stairs without pain LTG Duration 6-8 weeks (02/12/19: GOAL MET ) Three Impairment swelling and edema of the left LE from the knee to the foot STG Duration GOAL MET. Two Impairment Decreased strength of the left knee Senior Care Goal (LTG) Improve strength of the left knee including the ability to fully perform a quad squeeze in full knee extension and the patient is able to demonstrate functional strengh of left knee strength with a standing squat LTG Duration 6-8 weeks (02/12/19: GOAL MET) One Impairment Decreased left knee ROM STG Duration GOAL MET Progress Towards Goals Progress Towards Goals Progressing Toward Goals Progress Comments Goal 5: MET. Pt able to reach her toes to don/doff socks/shoes. Goal 4: MET. No knee or hip pain with gait. Goal 3: MET. Edema L knee reduced. Goal 2: MET. Able to palpate Medial Quad contraction and do a standing squat. Goal 1: MET. L knee AROM 0- 132 deg's. Assessment Summary Assessment Pt has met all goals. She is performing functional activities at home. She has some restriction with R hip mobility with ER/IR; therefore therapy in the future may be appropriate for this patient to improve mobility if she becomes hindered in function. She is having occasional pain in the R hip and L knee, but she feels she is doing good. Her Lower Extremity Functional Score is 42/80 indicating she is 57.5% of maximal function. The pt has been issued a HEP to progress her R hip mobility and core stability for minimizing pain and improving function. Physical Therapy Plan Discharge Physical Therapy Discharge Reasons Goals Met Discharge Comments The pt may need further therapy in the future for R hip and LBP if she is not able to keep up with her HEP to minimize her pain and maintain her core stability. No further therapy is expected for her L knee. Thank you for your referral. I would be more than happy to work with this pleasant individual again .
== END 2019-02-12 12:15 ==
LOC: PHYS 11:15
PROVIDERS: PCP Family Medicine; Visit Provider Physician Assistant
DX: M17.12 Unilateral primary osteoarthritis, left knee (principal)
CPT/HCPCS: 97110; 97116; 97140; 97161; 97530

== ENCOUNTER → 2019-03-31 06:40 | Outpatient (CLI) | payer MEDICARE, BC, SELFPAY ==
[2019-03-31 08:40] LABS: Alanine Aminotransferase 16 IU/L (9-52); Albumin Globulin Ratio 1.4 (1.0-2.8); Alkaline Phosphatase 67 U/L (38-126); Aspartate Aminotransferase 20 IU/L (14-36); BUN Creatinine Ratio 25.6 (6-22); Bilirubin Total 0.4 mg/dL (0.2-1.3); Blood Urea Nitrogen 23 mg/dL (7-17); Calcium 9.8 mg/dL (8.4-10.2); Carbon Dioxide 31 mmol/L (22-32); Chloride 99 mmol/L (98-107); Cholesterol 210 mg/dL (140-199); Estimated Glomerular Filt Rate > 60.0 mL/min (>60); Globulin 2.9 g/dL (1.7-4.1); Glucose 89 mg/dL (80-110); HDL Cholesterol 54 mg/dL (40-60); HEMOLYSIS < 15 (0-50); LDL Cholesterol Calculated 133 mg/dL (<100); Potassium 4.8 mmol/L (3.4-5.1); Sodium 136 mmol/L (137-145); Total Protein 6.9 g/dL (6.3-8.2); Triglycerides 116 mg/dL (35-150)
== END ==
PROVIDERS: PCP Family Medicine; Visit Provider Family Medicine
DX: E78.5 Hyperlipidemia, unspecified (principal); I10 Essential (primary) hypertension
CPT/HCPCS: 36415; 80053; 80061

== ENCOUNTER → 2019-08-25 07:50 | Outpatient (CLI) | payer MEDICARE, BC, SELFPAY ==
[2019-08-25 08:21] LABS: Add Manual Diff / Slide Review NO; Basophils Absolute Auto 0 /uL (0-100); Basophils Percent Auto 0.8 % (0-2); Eosinophils Absolute Auto 200 /uL (0-450); Eosinophils Percent Auto 3.3 % (2-4); Hematocrit 36.7 % (36-46); Hemoglobin 12.5 g/dL (12.0-16.0); Lymphocytes Absolute Auto 1600 /uL (1100-4500); Lymphocytes Percent Auto 29.7 % (25-40); Mean Corpuscular Hemoglobin 29.9 PG (26-34); Mean Corpuscular Volume 88.1 fL (80-100); Monocytes Absolute Auto 600 /uL (0-900); Monocytes Percent Auto 10.2 % (3-14); Neutrophils Absolute Auto 3100 /uL (1500-7000); Platelet Count 300 X10^3/uL (150-400); Red Blood Cell Count 4.16 X10^6/uL (4.0-5.2); Red Cell Distribution Width 13.1 % (11.6-14.8); White Blood Cell Count 5.5 X10^3/uL (4.5-11.0)
[2019-08-25 08:46] LABS: Alanine Aminotransferase 18 IU/L (9-52); Albumin 4.2 g/dL (3.5-5.0); Albumin Globulin Ratio 1.6 (1.0-2.8); Alkaline Phosphatase 65 U/L (38-126); Aspartate Aminotransferase 21 IU/L (14-36); BUN Creatinine Ratio 27.5 (6-22); Bilirubin Total 0.4 mg/dL (0.2-1.3); Blood Urea Nitrogen 22 mg/dL (7-17); Calcium 9.7 mg/dL (8.4-10.2); Carbon Dioxide 31 mmol/L (22-32); Chloride 100 mmol/L (98-107); Estimated Glomerular Filt Rate > 60.0 mL/min (>60); Globulin 2.7 g/dL (1.7-4.1); Glucose 89 mg/dL (80-110); HEMOLYSIS < 15 (0-50); Potassium 4.5 mmol/L (3.4-5.1); Sodium 138 mmol/L (137-145); Total Protein 6.9 g/dL (6.3-8.2)
[2019-08-25 09:14] LABS: Thyroid Stimulating Hormone 3.13 uIU/mL (0.47-4.68)
[2019-08-25 09:51] LABS: Appearance Urine UA CLEAR; Bilirubin Urine UA NEGATIVE (NEGATIVE); Color Urine UA YELLOW; Glucose Urine UA NEGATIVE (Negative); Ketones Urine UA NEGATIVE (NEGATIVE); Leukocyte Esterase Urine UA NEGATIVE (NEGATIVE); Nitrite Urine UA NEGATIVE (Negative); Occult Blood Urine UA TRACE-INTACT (Negative); Protein Urine UA NEGATIVE (Negative); Urobilinogen Urine UA 0.2 E.U./dL (0.2)
== END ==
PROVIDERS: PCP Family Medicine; Visit Provider Family Medicine
DX: E78.5 Hyperlipidemia, unspecified (principal); I10 Essential (primary) hypertension; J44.9 Chronic obstructive pulmonary disease, unspecified; R06.09 Other forms of dyspnea
CPT/HCPCS: 36415; 80053; 81003; 84443; 85025

== ENCOUNTER → 2019-08-26 12:59 | Outpatient (CLI) | payer MEDICARE, BC, SELFPAY ==
--- NOTE | 2019-08-27 14:30 | PM.PFT.1 ---
Pulmonary Function Test Referral & Results Date Patient Seen: 08/26/19 Requesting provider: Karime Howell Results: The spirometry demonstrates an FVC of 2.08 L which is 73% of predicted. The FEV1 was measured at 1.14 L which is 53% of predicted. The FEV1/FVC ratio was 55 which is 71% of predicted. Following the administration of bronchodilator there was an 18% improvement in FEV1 and a 73% improvement in FEF 25-75%. Lung volumes show an SVC of 2.05 L which is 74% of predicted. The diffusing capacity was measured at 24.77 which is 108% of predicted. The maximum voluntary ventilation was reduced Interpretation: This study demonstrates moderate obstructive lung disease with evidence of significant benefit following bronchodilator based on improvement in FEV1 and small airway flow (FEF 25-75%) There is also mild restrictive lung disease present
== END ==
PROVIDERS: PCP Family Medicine; Visit Provider Specialist
DX: J41.1 Mucopurulent chronic bronchitis (principal); J98.8 Other specified respiratory disorders
CPT/HCPCS: 94060; 94726; 94729

== ENCOUNTER 2019-12-02 11:30 | Outpatient (RCR) | payer MEDICARE, BC, SELFPAY ==
[2019-09-01 16:04] VITALS: BP 132/70; RESP 16; O2SAT 96; BMI 192.0
--- NOTE | 2019-09-02 12:16 | PR.IEVALNOTE ---
Current Diagnoses Mucopurulent chronic bronchitis (09/02/19) Past Medical History (Last Reviewed 03/17/19 @ 15:35 by Bess Dunn DO) Asthma (Chronic) Benign disease of right breast (Chronic 1999) COPD (chronic obstructive pulmonary disease) (Chronic) History of benign breast biopsy (Resolved 05/01/00) Narcolepsy (Chronic) RLS (restless legs syndrome) (Chronic) Uterine cancer (Resolved ~2004) Visit Care Team Role Provider Type Bess Dunn DO Primary Care Provider Physician Specialty: Family Practice Address: [address] [place] [address], [address] [place] [address], [address] Email: [email or web address] Karime Howell Attending Provider Non-Staff Specialty: Medical Address: [address] [place] [address], [address] Email: Pulmonary Rehab Initial Evaluation [place] Pulmonary Rehab Inital Assessment Start: 08/31/19 15:28 Freq: Status: Active Protocol: Document 09/01/19 16:04 KATHI (Rec: 09/01/19 16:17 KATHI [email or web address]) [place] Exercise Assessment Dx: COPD Comment mucopurulent chronic bronchitis Primary Language [place] Tim[employer] Sizer Required No Hearing Ability Normal Visual Impairment No Limitations Visual Difficutly None Visual Assist None Musculoskeletal Symptoms Joint Stiffness,Joint Swelling Body Alignment Posture Good Posture,Relaxed Assistive Devices None Comment PARTIAL L KNEE REPLACEMENT Sep History of Falling (Immediate or No Previous) Secondary Diagnosis (More Than 2 Medical No Diagnoses) Ambulatory Aid None/bed rest/nurse assist Mental Status Oriented to own ability Comment patient states that there are no barriers to exercise and feels she will be able to exercise independently without concerns after completing Pulmonary Rehab sessions Comment none [place] Vital Signs Pulse Oximetry (91-100 %) 96 Nasal Cannula No Respiratory Rate (12-24 breaths/min) 16 Respiratory Effort Non-Labored Respiratory Depth Normal Assessment clear to auscultation no wheeze or rhonchi Left Arm Blood Pressure (90/60-140/90 mmHg) 132/70 Blood Pressure Method Manual Cuff/Auscultation Blood Pressure Position Sitting TX Six Minute Walk Test Oxygen Delivery Method Room Air Respiratory Rate (breaths/min) 16 Pulse Rate (beats/min) 89 O2 Saturation by Pulse Oximetry (%) 96 Pulse Rate (beats/min) 111 Ambulation Distance (feet) 300 O2 Saturation by Pulse Oximetry (%) 94 Pulse Rate (beats/min) 119 Ambulation Distance (feet) 250 O2 Saturation by Pulse Oximetry (%) 95 Pulse Rate (beats/min) 124 Ambulatory Distance (feet) 300 O2 Saturation by Pulse Oximetry (%) 98 Pulse Rate (beats/min) 127 Ambulation Distance (feet) 300 O2 Saturation by Pulse Oximetry (%) 98 Pulse Rate (beats/min) 127 Ambulation Distance (feet) 300 O2 Saturation by Pulse Oximetry (%) 97 PUlse Rate (beats/min) 115 Ambulation Distance (feet) 340 O2 Saturation by Pulse Oximetry (%) 95 Respiratory Rate (breaths/min) 16 Pulse Rate (beats/min) 102 O2 Saturation by Pulse Oximetry (%) 98 Activity Tolerance Good Adverse Reactions Pulse Increase > 20 bpm, Increased Shortness of Breath Distance 1790 Varinder RPE Scale 14 Oriented to RPE Scale Yes Dyspnea 4 Oriented to Dyspnea Scale Yes TX Exercise Goals DASI Number and Comment 7.98 [place] Pulmonary Rehab Orientation Complete Complete Yes TX Nutrition Assessment PFT Date 08/26/19 Forced Vital Capacity (FVC) 2.08 73% Slow Vital Capacity (SVC) 2.05 74% Forced Exp. Volume/Forced Vital Cap 55 71% Ratio (FEV1/FVC Ratio) Forced Expiratory Volume in 1 sec. 1.14 53% Diffusing Capacity of the Lung (DLCO) 108% History of Diabetes No Type N/A Admit Height 63 cm Admit Weight 76.204 kg Admit Body Mass Index (BMI) 192.0 [place] Education Pre-Test Score 100% Tobacco Use Former, Quit >6 Months Tobacco Product Used cigarettes Total Years Used 16 Packs Per Day 1 Environmental/Occupational Exposure none Use Yes Type beer mine cocktail Frequency 3X week Concerns None Education Topics Breathing Retraining Discussed Education Requirements on Yes Intake TX Psychosocial Initial Assess HADS Score 4 HADS Score 7 Marital Status Physician Comment Ready for Pulmonary Rehabilitation Cooperative,Motivated
--- NOTE | 2019-10-07 16:02 | PR.REVALNOTE ---
Current Diagnoses Mucopurulent chronic bronchitis (10/07/19) Past Medical History (Last Reviewed 03/17/19 @ 15:35 by Bess Dunn DO) Asthma (Chronic) Benign disease of right breast (Chronic 1999) COPD (chronic obstructive pulmonary disease) (Chronic) History of benign breast biopsy (Resolved 05/01/00) Narcolepsy (Chronic) RLS (restless legs syndrome) (Chronic) Uterine cancer (Resolved ~2004) Visit Care Team Role Provider Type Bess Dunn DO Primary Care Provider Physician Specialty: Family Practice Address: [address] [place] [address], [address], [address] Email: [email or web address] Karime Howell Attending Provider Non-Staff Specialty: Medical Address: [address] [place] [address], [address] Email: Pulmonary Rehab Re-Evaluation [place] Pulmonary Rehab. Re-Assessment Start: 08/31/19 15:28 Freq: Status: Active Protocol: Document 10/07/19 15:53 KATHI (Rec: 10/07/19 16:02 KATHI [email or web address]) [place] Exercise Re-Assessment New Session Number 2-11 Type Nustep,Treadmill,LIVE METs (resistance level) TM3.36 NS2.71 Rex4.18 % Improvement tm32% NS7% Interval Training Yes: 4.86TM Shortness of Breath with Exercise Yes Desaturation with Exercise No Free Weight Yes: 3# 12r 2s Band Level Yes: #4 band Intervention initiate independent exercise 1-2 times week [place] Education Re-Assessment Topics Normal Anatomy and Physiology, Chronic Lung Disease,Benefits of Exercise,Activities of daily living/Leisure Activities,Eating Right Goals Pt will Master PLB and Diaphragmatic Breathing,Pt will Master Energy Conserving Techniques,Pt will learn exercise safety,Pt will continue ED topics until completion [place] Psychosocial Re-Assessment Patient in Class Regularly Yes Interventions Pt attending class regularly Referral Needed No Goals Pt will continue to attend classes 3x wk,Participate in social and educational discussion,Received emotional support from family/friends
--- NOTE | 2019-12-02 13:12 | PR.REVALNOTE ---
Current Diagnoses Mucopurulent chronic bronchitis (12/02/19) Past Medical History (Last Reviewed 03/17/19 @ 15:35 by Bess Dunn DO) Asthma (Chronic) Benign disease of right breast (Chronic 1999) COPD (chronic obstructive pulmonary disease) (Chronic) History of benign breast biopsy (Resolved 05/01/00) Narcolepsy (Chronic) RLS (restless legs syndrome) (Chronic) Uterine cancer (Resolved ~2004) Visit Care Team Role Provider Type Bess Dunn DO Primary Care Provider Physician Specialty: Family Practice Address: [address] [place] [address], [address], [address] Email: [email or web address] Karime Howell Attending Provider Non-Staff Specialty: Medical Address: [address] [place] [address], [address] Email: Pulmonary Rehab Re-Evaluation [place] Education Start: 08/31/19 15:28 Freq: Status: Active Protocol: Document 11/15/19 15:32 [facility] (Rec: 11/15/19 15:33 [facility] [id number]) [place] Education Education Mets, importance of exercise and effects of deconditioning [place] Pulmonary Rehab. Re-Assessment Start: 08/31/19 15:28 Freq: Status: Active Protocol: Document 10/07/19 15:53 KATHI (Rec: 10/07/19 16:02 [facility] [email or web address]) [place] Exercise Re-Assessment New Session Number 2-11 Type Nustep,Treadmill,LIVE METs (resistance level) TM3.36 NS2.71 Rex4.18 % Improvement tm32% NS7% Interval Training Yes: 4.86TM Shortness of Breath with Exercise Yes Desaturation with Exercise No Free Weight Yes: 3# 12r 2s Band Level Yes: #4 band Intervention initiate independent exercise 1-2 times week [place] Education Re-Assessment Topics Normal Anatomy and Physiology, Chronic Lung Disease,Benefits of Exercise,Activities of daily living/Leisure Activities,Eating Right Goals Pt will Master PLB and Diaphragmatic Breathing,Pt will Master Energy Conserving Techniques,Pt will learn exercise safety,Pt will continue ED topics until completion [place] Psychosocial Re-Assessment Patient in Class Regularly Yes Interventions Pt attending class regularly Referral Needed No Goals Pt will continue to attend classes 3x wk,Participate in social and educational discussion,Received emotional support from family/friends Document 11/24/19 16:15 KATHI (Rec: 11/24/19 16:18 KATHI [id number]) [place] Exercise Re-Assessment New Session Number 12-24 Type Nustep,Treadmill,BioDex METs (resistance level) 5.29TM 6.23strdr % Improvement 57%TM 29% strdr Interval Training Yes: 7.49TM 8.8 strdr Shortness of Breath with Exercise Yes Desaturation with Exercise No Free Weight Yes: 5# 12r 2s Band Level Yes: #4 band Toward Target Goals pt has initiated independent exercise-goal met will monitor progress pt demonstrates proper PLB and paced breathing-goal met will continue to monitor CA Nutrition Re-Assessment Goals Pt will continue focusing on weight loss,Pt will continue to learn tips [place] Education Re-Assessment Topics Normal Anatomy and Physiology, Chronic Lung Disease, Description and Interpretation Medical Tests,Breathing Retraining,Bronchial Hygiene, Medication,Benefits of Exercise,Eating Right,Coping with Chronic Lung Disease Goals Pt will Master PLB and Diaphragmatic Breathing,Pt will Master Energy Conserving Techniques,Pt will learn exercise safety,Pt will continue ED topics until completion [place] Psychosocial Re-Assessment Patient in Class Regularly Yes Interventions Pt attending class regularly Referral Needed No Goals Pt will continue to attend classes 3x wk,Participate in social and educational discussion,Received emotional support from family/friends
== END 2019-12-02 12:30 ==
LOC: PUL 11:30
PROVIDERS: PCP Family Medicine; Visit Provider Specialist
DX: J41.1 Mucopurulent chronic bronchitis (principal)
CPT/HCPCS: G0424

== ENCOUNTER → 2019-12-09 17:34 | Outpatient (CLI) | payer MEDICARE, BC, SELFPAY ==
[2019-09-01 16:04] VITALS: BMI 192.0
--- NOTE | 2019-12-09 17:36 | DI.RAD.S_ITS ---
PROCEDURE: XR CHEST 2V INDICATIONS: cough TECHNIQUE: 2 views of the chest were acquired. COMPARISON: [facility], CHEST 2 VIEW, 12/09/2017, 9:06. [facility], CHEST 2 VIEW, 12/12/2015, 10:17. FINDINGS: Surgical changes and devices: None. Lungs and pleura: Mild streaky opacity in the right middle/lower lobes, increased compared to remote CXR. Left midlung field opacity seen on prior CXR is not well appreciated. No pleural effusions or pneumothorax. Mediastinum: Mediastinal contours are normal. Heart size is normal. Bones and chest wall: No suspicious bony abnormalities. Soft tissues appear unremarkable. IMPRESSION: Mild opacity in the right middle and right lower lobes. Findings could be due to pneumonia, atelectasis, or aspiration. Dictated by: Henok Boone M.D. on 12/09/2019 at 18:10 Approved by: Henok Boone M.D. on 12/09/2019 at 18:13
== END ==
PROVIDERS: PCP Family Medicine; Referring Provider Physician Assistant; Visit Provider Physician Assistant
DX: R05 Cough (principal)
CPT/HCPCS: 71046

== ENCOUNTER → 2020-01-11 10:57 | Outpatient (ROUT) | payer MEDICARE, BC, SELFPAY ==
[2019-09-01 16:04] VITALS: BMI 192.0
== END ==
PROVIDERS: PCP Family Medicine; Visit Provider Internal Medicine Critical Care Medicine
DX: J18.9 Pneumonia, unspecified organism (principal)
CPT/HCPCS: 87070; 87205

== ENCOUNTER → 2020-06-12 08:22 | Outpatient (CLI) | payer MEDICARE, BC, SELFPAY ==
[2019-09-01 16:04] VITALS: BMI 192.0
--- NOTE | 2020-06-12 | DI.MG.S_ITS ---
BILATERAL DIGITAL SCREENING MAMMOGRAM 3D/2D WITH CAD: 06/12/2020 CLINICAL: Routine screening. Comparison is made to exams dated: 12/16/2018 mammogram, 10/13/2017 mammogram, 09/13/2016 mammogram, 09/12/2015 mammogram, and 07/06/2013 mammogram - [facility]. The tissue of both breasts is heterogeneously dense. This may lower the sensitivity of mammography. Current study was also evaluated with a Computer Aided Detection (CAD) system. No significant masses, calcifications, or other findings are seen in either breast. There has been no significant interval change. IMPRESSION: NEGATIVE There is no mammographic evidence of malignancy. A 1 year screening mammogram is recommended. This exam was interpreted at Station ID: [id number]. NOTE: For mammograms, a report in lay terms will be sent to the patient. Approximately 15% of breast malignancies will not be visualized mammographically. In the management of a palpable breast mass, a negative mammogram must not discourage biopsy of a clinically suspicious lesion. Electronically Signed By: Raad cheatham/sabrina:06/12/2020 09:04:27 copy to: MADY PRESCOTT letter sent: Normal Exam ACR BI-RADS Category 1: Negative 3341F
== END ==
PROVIDERS: Referring Provider Family Medicine; Visit Provider Family Medicine
DX: Z12.31 Encounter for screening mammogram for malignant neoplasm of breast (principal)
CPT/HCPCS: 77063; 77067

== ENCOUNTER → 2020-06-21 12:12 | Outpatient (CLI) | payer MEDICARE, BC, SELFPAY ==
[2019-09-01 16:04] VITALS: BMI 192.0
[2020-06-21 13:21] LABS: HEMOLYSIS < 15 (0-50); Iron 102 ug/dL (37-170)
[2020-06-21 13:24] LABS: BUN Creatinine Ratio 21.8 (6-22); Blood Urea Nitrogen 19 mg/dL (7-17); Calcium 9.9 mg/dL (8.4-10.2); Carbon Dioxide 31 mmol/L (22-32); Chloride 101 mmol/L (98-107); Cholesterol 155 mg/dL (140-199); Estimated Glomerular Filt Rate > 60.0 mL/min (>60); Glucose 91 mg/dL (80-110); HDL Cholesterol 64 mg/dL (40-60); HEMOLYSIS < 15 (0-50); LDL Cholesterol Calculated 71 mg/dL (<100); Potassium 4.8 mmol/L (3.4-5.1); Sodium 137 mmol/L (137-145); Triglycerides 98 mg/dL (35-150)
[2020-06-21 13:31] LABS: Percent Iron Saturation 37 % (15-50); Total Iron Binding Capacity 278 ug/dL (265-497); Transferrin 218 mg/dL (206-381)
== END ==
PROVIDERS: PCP Student in an Organized Health Care Education/Training Program; Referring Provider Student in an Organized Health Care Education/Training Program; Visit Provider Student in an Organized Health Care Education/Training Program
DX: E78.5 Hyperlipidemia, unspecified (principal); G25.81 Restless legs syndrome; I10 Essential (primary) hypertension
CPT/HCPCS: 36415; 80048; 80061; 83540; 83550

== ENCOUNTER → 2020-07-13 12:47 | Outpatient (CLI) | payer MEDICARE, BC, SELFPAY ==
[2019-09-01 16:04] VITALS: BMI 192.0
== END ==
PROVIDERS: PCP Student in an Organized Health Care Education/Training Program; Referring Provider Student in an Organized Health Care Education/Training Program; Visit Provider Student in an Organized Health Care Education/Training Program
DX: Z13.820 Encounter for screening for osteoporosis (principal); M85.852 Other specified disorders of bone density and structure, left thigh; Z78.0 Asymptomatic menopausal state; Z82.62 Family history of osteoporosis; Z87.891 Personal history of nicotine dependence
CPT/HCPCS: 77080

== ENCOUNTER → 2020-10-31 16:15 | Outpatient (CLI) | payer MEDICARE, BC, SELFPAY ==
[2019-09-01 16:04] VITALS: BMI 192.0
[2020-10-31 17:09] LABS: COVID19 -Nasal RAPID Negative (Negative)
== END ==
PROVIDERS: PCP Student in an Organized Health Care Education/Training Program; Visit Provider Specialist
DX: Z01.812 Encounter for preprocedural laboratory examination (principal); Z20.822 Contact with and (suspected) exposure to COVID-19
CPT/HCPCS: 87635; C9803

== ENCOUNTER 2020-11-02 07:16 | Day surgery (SDC) | payer MEDICARE, BC, SELFPAY ==
[2019-09-01 16:04] VITALS: BMI 192.0
[2020-11-02] VITALS (7 sets, daily range): BP systolic 112–137; BP diastolic 59–73; PULSE 62–77; RESP 10–16; TEMP 35.9–36.4; O2SAT 95–98; BMI 31.1
--- NOTE | 2020-11-02 | PATH_ITS ---
[facility] Accession Number: [id number] . 01 Material submitted: . colon - 55 CM COLON POLYP . 02 Diagnosis: Colon, Polyp 55 cm, Biopsy: Tubular adenoma. MRV 11/07/2020 1250 Local . 02 Electronically signed: . Esme Perez MD, Pathologist NPI- [id number] . 01 Gross description: . 55 CM COLON POLYP: Received in formalin are 2 fragment(s) of porras, soft tissue measuring 0.4 x 0.3 x 0.2 cm to 0.3 x 0.3 x 0.3 cm submitted entirely in 1 cassette(s) /QBJ 11/03/2020 0840 Local . 02 Pathologist provided ICD-10: D12.6 . 02 CPT . 018954 Performed at: 01 [facility] [address] [id number] MD Zaid Ortega MD Phone: [phone] Performed at: 02 [facility] [address] [place], [place] [id number] MD Esme Perez MD Phone: [phone]
[2020-11-02] MEDS: LACTATED RINGERS 1,000 ML 200 ML IV (07:55)
--- NOTE | 2020-11-02 08:49 | PM.HP.1 ---
History of Present Illness History of Present Illness Date Patient Seen: 11/02/20 Time Patient Seen: 08:50 Chief complaint: SDC Narrative: Patient is a woman his mother of colon cancer in she has a personal history of polyps. She is here for a high risk screening exam. Last exam was 5 years ago. Patient History Medical History Asthma Benign disease of right breast (1999) COPD (chronic obstructive pulmonary disease) History of benign breast biopsy (05/01/00) Narcolepsy RLS (restless legs syndrome) Uterine cancer (~2004) Surgical History History of breast lump/mass excision (10/03/10) History of breast lump/mass excision (~1999) History of colonoscopy (11/25/05) History of tonsillectomy and adenoidectomy (~1959) Status post breast lumpectomy (2000) Status post hemorrhoidectomy Status post hysterectomy (09/09/06) Status post tubal ligation Family & Social History Family History Brother Alcoholic Smoker [place] (myocardial infarction) Father COPD (chronic obstructive pulmonary disease) Kidney failure Heart failure Respiratory failure Mother Osteoporosis Colon cancer Sister Age: 73 Cerebral palsy Sister Age: 68 Obesity Social History: household members spouse Tobacco & Substance use: Smoking Status Former smoker alcohol intake current alcohol intake frequency a few times a week Substance Use Type does not use Meds Home Medications and Allergies Home Medications Medication Instructions Recorded Confirmed Type CHOLECALCIFEROL (VITAMIN D3) 2,000 iu PO QDAY #0 03/10/12 11/02/20 History (Vitamin D-3) MULTIVITAMIN (#MULTIPLE VITAMINS) 1 cap PO QDAY #0 03/10/12 11/02/20 History VITAMIN B COMPLEX 1 cap PO QDAY #0 03/10/12 11/02/20 History ascorbic acid (vitamin C) 500 mg PO QDAY #0 03/10/12 11/02/20 History magnesium 200 mg tablet 200 mg PO DAILY 10/11/19 11/02/20 History atorvastatin 20 mg tablet See Rx Instructions .ROUTE 07/18/20 11/02/20 Rx .COMPLEX #90 tab pramipexole 0.25 mg tablet 0.25 mg PO HS #90 tabs 07/18/20 11/02/20 Rx acyclovir 200 mg capsule 200 mg PO 5XD #50 cap 07/19/20 11/02/20 Rx albuterol sulfate 90 mcg/actuation 2 puff INHALATION QIDP #2 07/19/20 11/02/20 Rx aerosol inhaler inhalation fluticasone 250 mcg-salmeterol 50 1 inhalation INHALATION BID #3 dose 07/19/20 11/02/20 Rx mcg/dose blistr powdr for inhalation lisinopril 10 mg tablet 10 mg PO QDAY #90 tab 07/19/20 11/02/20 Rx montelukast 10 mg tablet 10 mg PO QDAY #90 tab 07/19/20 11/02/20 Rx tiotropium bromide 18 mcg capsule 1 cap INHALATION QDAY #3 each 07/19/20 11/02/20 Rx with inhalation device ferrous gluconate 324 mg (38 mg 324 mg PO DAILY #90 tab 07/20/20 11/02/20 Rx iron) tablet clonazepam 0.5 mg tablet 0.25 mg PO BID PRN #15 tab 10/16/20 11/02/20 Rx Allergies Allergy/AdvReac Type Severity Reaction Status Date / Time animal dander [ANIMAL DANDER] Allergy Mild Verified 11/02/20 07:59 grass pollen-perennial rye, Allergy Mild Verified 11/02/20 07:59 standar [GRASS POLL-PERENNIAL RYE,STD] erythromycin base AdvReac Intermediate Verified 11/02/20 07:59 DUST Allergy Mild Uncoded 11/02/20 07:59 Review of Systems Review of Systems Narrative: Various breathing issues for which she takes medication. ROS: Yes All systems reviewed with the patient and are negative except as otherwise documented Exam Vital Signs (past 8 hours): - 11/02/20 07:46 Temperature 97.5 F L Pulse Rate 77 Respiratory Rate 16 Blood Pressure 123/71 Pulse Oximetry 95 Oxygen Delivery Method Room Air Narrative Exam Narrative: Pleasant cooperative patient no apparent distress. Lungs are clear to auscultation. No rales or rhonchi. Heart regular rate and rhythm no murmur gallop. Abdomen is soft nontender without mass. No obvious hernias. Patient is alert and oriented x3. Assessment & Plan Assessment & Plan narrative: The patient for a screening colonoscopy. I have discussed the procedure with them. Risks of bleeding, perforation which would necessitate major operation, failure to find remove all lesions, the potential tattoo were all discussed. All questions were answered. They wished to proceed.
--- NOTE | 2020-11-02 08:51 | PM.PREOP ---
Pre-operative Note COVID-19 COVID-19 status: Negative Result date/Date tested (Pos, Neg/Pending): 11/01/20 Interval Note History & Physical reviewed/Exam performed by Physician: Yes Changes to H&P: No ASA Class (for procedural sedation): II
--- NOTE | 2020-11-02 09:09 | SUR.OPER ---
Addendum entered by Anuradha Lu R.N. 11/02/20 09:44: Pt became arousable to painful stimuli then verbal stimuli, see worklist Level of consciousness. Original Note: Patient under conscious sedation, O2 saturation decreased, increased O2 flow, applied jaw thrust with no response. Dr. Persaud applied nasal airway, Pt's O2 saturations increased, pt not responding to painful stimuli. See attached vital signs in pt record.
[2020-11-02] MEDS: MIDAZOLAM 5 MG/5 ML VIAL IV (09:12)
[2020-11-02] MEDS: fentaNYL 250 MCG/5 ML INJ 200 MCG IV (09:15)
--- NOTE | 2020-11-02 09:23 | PM.OP.ENDO ---
Operative Date/Time/Diagnoses Date of procedure: 11/02/20 Time of procedure: 09:23 Pre-op diagnosis: History of polyps. Family member with colon cancer. Last exam 5 years ago. Post-op diagnosis: same Procedure & Clinicians Study performed: Colonoscopy with cold biopsy. Same procedure as scheduled: Yes Indications: screening Surgeon: Joselito Persaud Procedure Notes SCOAP/Timeout: Performed Procedure in detail: The patient was placed in the left lateral decubitus position and underwent IV sedation directed by the surgeon consisting of fentanyl and Versed. Digital exam was unremarkable except for some edema the perianal skin.. The scope was inserted and advanced through the rectum into the sigmoid, descending, transverse, and ascending colon. There was extensive sigmoid diverticulosis which made getting through the sigmoid quite difficult.. The cecum was reached identified by the ileocecal valve and the appendiceal opening. The ileocecal valve was briefly cannulated. The terminal ileum was normal in appearance. The scope was gradually brought out. One tiny Polyp was found at 55 cm from the anal verge. It was biopsied and completely removed.. The scope ultimately attempted to be retroflexed in the rectum. This proved unsuccessful. The scope was slowly brought through the anal verge. The appearance was remarkable for internal hemorrhoids without ulceration.. The scope was removed and the patient tolerated the procedure well. Prep was excellent. Scope withdrawal time: 7 minutes (9 total) Sedation minutes: 29 Findings: diverticulosis (Extensive sigmoid) and polyp (Tiny polyp at 55 cm from the anal verge) Specimen(s): other (Polyp) Complications: none Post-procedure Recommendations: Colonscopy in 5 years Follow up: as needed Disposition: PACU
== END 2020-11-02 10:20 | disposition home or self-care (01) ==
PROVIDERS: PCP Student in an Organized Health Care Education/Training Program; Referring Provider Student in an Organized Health Care Education/Training Program; Visit Provider Specialist
PROC: 0DJD8ZZ Inspection of Lower Intestinal Tract, Via Natural or Artificial Opening Endoscopic (ICD-10-PCS; CPT 45378; principal; 2020-11-02 08:30)
DX: Z12.11 Encounter for screening for malignant neoplasm of colon (principal); Z86.010 Personal history of colon polyps; Z80.0 Family history of malignant neoplasm of digestive organs; J44.9 Chronic obstructive pulmonary disease, unspecified; K57.30 Diverticulosis of large intestine without perforation or abscess without bleeding; K64.8 Other hemorrhoids; D12.6 Benign neoplasm of colon, unspecified
CPT/HCPCS: 45380; 99152; 99153; J2250; J3010

== ENCOUNTER → 2021-05-17 13:42 | Outpatient (CLI) | payer MEDICARE, OTHER, SELFPAY ==
[2019-09-01 16:04] VITALS: BMI 192.0
[2021-05-17 14:02] LABS: Hematocrit 36.1 % (36-46); Mean Corpuscular HGB Conc 33.2 % (30-36); Mean Corpuscular Hemoglobin 28.5 PG (26-34); Mean Corpuscular Volume 85.9 fL (80-100); Platelet Count 321 X10^3/uL (150-400); Red Cell Distribution Width 14.4 % (11.6-14.8); White Blood Cell Count 6.6 X10^3/uL (4.5-11.0)
[2021-05-17 14:15] LABS: Alanine Aminotransferase 24 IU/L (<35); Albumin 4.2 g/dL (3.5-5.0); Albumin Globulin Ratio 1.4 (1.0-2.8); Alkaline Phosphatase 83 U/L (38-126); Aspartate Aminotransferase 26 IU/L (14-36); BUN Creatinine Ratio 21.6 (6-22); Bilirubin Total 0.2 mg/dL (0.2-1.3); Blood Urea Nitrogen 19 mg/dL (7-17); Calcium 9.6 mg/dL (8.4-10.2); Carbon Dioxide 30 mmol/L (22-32); Chloride 103 mmol/L (98-107); Estimated Glomerular Filt Rate > 60.0 mL/min (>60); Globulin 3.1 g/dL (1.7-4.1); Glucose 97 mg/dL (80-110); HEMOLYSIS < 15 (0-50); Potassium 4.7 mmol/L (3.4-5.1); Sodium 138 mmol/L (137-145); Total Protein 7.3 g/dL (6.3-8.2)
[2021-05-17 14:47] LABS: HEMOLYSIS < 15 (0-50); Iron 47 ug/dL (37-170)
[2021-05-17 14:58] LABS: Percent Iron Saturation 19 % (15-50); Total Iron Binding Capacity 252 ug/dL (265-497); Transferrin 191 mg/dL (206-381)
== END ==
PROVIDERS: PCP Student in an Organized Health Care Education/Training Program; Referring Provider Student in an Organized Health Care Education/Training Program; Visit Provider Student in an Organized Health Care Education/Training Program
DX: E78.5 Hyperlipidemia, unspecified (principal); G25.81 Restless legs syndrome; I10 Essential (primary) hypertension; Z79.899 Other long term (current) drug therapy
CPT/HCPCS: 36415; 80053; 83540; 83550; 85027

== ENCOUNTER → 2021-05-25 11:01 | Outpatient (CLI) | payer MEDICARE, OTHER, SELFPAY ==
[2019-09-01 16:04] VITALS: BMI 192.0
[2021-05-25 12:11] LABS: COVID19 -Nasal RAPID Negative (Negative)
== END ==
PROVIDERS: PCP Student in an Organized Health Care Education/Training Program; Referring Provider Student in an Organized Health Care Education/Training Program; Visit Provider Student in an Organized Health Care Education/Training Program
DX: J44.9 Chronic obstructive pulmonary disease, unspecified (principal); Z20.822 Contact with and (suspected) exposure to COVID-19
CPT/HCPCS: 87635; C9803

== ENCOUNTER → 2021-05-25 11:03 | Outpatient (CLI) | payer MEDICARE, OTHER, SELFPAY ==
[2019-09-01 16:04] VITALS: BMI 192.0
--- NOTE | 2021-05-30 09:06 | P.PFT.S_ITS ---
Pulmonary Function Test Referral & Results Date Patient Seen: 05/25/21 Requesting provider: Cristofer Cedillo Results: The spirometry demonstrates an FVC of 1.88 L which is 67% of predicted. The FEV1 was measured at 1.01 L which is 40% of predicted. The FEV1/FVC ratio was 54 which is 71% of predicted. Following the administration of bronchodilator there was a 30% improvement in FEV1 and a 137% improvement in FEF 25-75%. Lung volumes show an SVC of 2.13 L which is 78% of predicted. The diffusing capacity was measured at 24.48 which is 106% of predicted. The maximum voluntary ventilation was reduced Interpretation: This study demonstrates severe obstructive lung disease based on reduction FEV1 and FEV1/FVC ratio. There is evidence of significant benefit following bronchodilator based on i mprovement in FEV1 and FEF 25-75% as above There is minimal reduction SVC suggesting minimal restrictive lung disease may also be present Diffusing capacity is normal Compared to PFTs performed in July 2019, current study is essentially unchanged
== END ==
PROVIDERS: PCP Student in an Organized Health Care Education/Training Program; Referring Provider Student in an Organized Health Care Education/Training Program; Visit Provider Student in an Organized Health Care Education/Training Program
DX: J44.9 Chronic obstructive pulmonary disease, unspecified (principal); Z20.822 Contact with and (suspected) exposure to COVID-19; Z87.891 Personal history of nicotine dependence
CPT/HCPCS: 87635; 94060; 94726; 94729; C9803

== ENCOUNTER → 2022-03-20 13:10 | Outpatient (CLI) | payer MEDICARE, OTHER, SELFPAY ==
[2019-09-01 16:04] VITALS: BMI 192.0
--- NOTE | 2022-03-20 | DI.MG.S_ITS ---
BILATERAL DIGITAL SCREENING MAMMOGRAM 3D/2D WITH CAD: 03/20/2022 CLINICAL: Routine screening. Comparison is made to exams dated: 06/12/2020 mammogram, 12/16/2018 mammogram, 10/13/2017 mammogram, and 09/13/2016 mammogram - [facility]. The tissue of both breasts is heterogeneously dense. This may lower the sensitivity of mammography. Current study was also evaluated with a Computer Aided Detection (CAD) system. No significant masses, calcifications, or other findings are seen in either breast. There has been no significant interval change. IMPRESSION: NEGATIVE There is no mammographic evidence of malignancy. A 1 year screening mammogram is recommended. This exam was interpreted at Station ID: [id number]. NOTE: For mammograms, a report in lay terms will be sent to the patient. Approximately 15% of breast malignancies will not be visualized mammographically. In the management of a palpable breast mass, a negative mammogram must not discourage biopsy of a clinically suspicious lesion. Electronically Signed By: Henok cerda/sabrina:03/20/2022 13:43:01 copy to: MADY PRESCOTT letter sent: Normal Exam ACR BI-RADS Category 1: Negative 3341F
== END ==
PROVIDERS: PCP Student in an Organized Health Care Education/Training Program; Referring Provider Student in an Organized Health Care Education/Training Program; Visit Provider Student in an Organized Health Care Education/Training Program
DX: Z12.31 Encounter for screening mammogram for malignant neoplasm of breast (principal)
CPT/HCPCS: 77063; 77067

== ENCOUNTER → 2022-06-07 09:47 | Outpatient (CLI) | payer MEDICARE, OTHER, SELFPAY ==
[2019-09-01 16:04] VITALS: BMI 192.0
--- NOTE | 2022-06-07 09:50 | DI.RAD.S_ITS ---
PROCEDURE: XR DEXA AXIAL SKELETON INDICATIONS: Osteoporosis screening COMPARISON: [facility], CR, XR DEXA AXIAL SKELETON, 07/13/2020, 13:19. FINDINGS: This blank DEXA report has been sent in error by the PACS system. The correct and complete report will be forthcoming in 1-2 days. Thank you for your patience and understanding. Dictated by: Jovany Yee M.D. on 06/12/2022 at 10:36 Approved by: Jovany Yee M.D. on 06/12/2022 at 10:37
== END ==
PROVIDERS: PCP Student in an Organized Health Care Education/Training Program; Referring Provider Student in an Organized Health Care Education/Training Program; Visit Provider Student in an Organized Health Care Education/Training Program
DX: Z78.0 Asymptomatic menopausal state (principal); Z90.710 Acquired absence of both cervix and uterus; Z92.23 Personal history of estrogen therapy; Z13.820 Encounter for screening for osteoporosis; M85.852 Other specified disorders of bone density and structure, left thigh
CPT/HCPCS: 77080

== ENCOUNTER → 2022-07-08 07:23 | Outpatient (CLI) | payer MEDICARE, OTHER, SELFPAY ==
[2019-09-01 16:04] VITALS: BMI 192.0
[2022-07-08 09:44] LABS: HEMOLYSIS < 15 (0-50); Iron 80 ug/dL (37-170)
[2022-07-08 09:45] LABS: BUN Creatinine Ratio 24.4 (6-22); Blood Urea Nitrogen 21 mg/dL (7-17); Carbon Dioxide 28 mmol/L (22-32); Chloride 103 mmol/L (98-107); Estimated Glomerular Filt Rate > 60 mL/min (>60); Glucose 98 mg/dL (80-110); HEMOLYSIS < 15 (0-50); Potassium 4.2 mmol/L (3.4-5.1); Sodium 140 mmol/L (137-145)
[2022-07-08 09:55] LABS: Percent Iron Saturation 31 % (15-50); Total Iron Binding Capacity 259 ug/dL (265-497); Transferrin 201 mg/dL (206-381)
[2022-07-08 10:19] LABS: Ferritin 183 ng/mL (11-264)
== END ==
PROVIDERS: PCP Student in an Organized Health Care Education/Training Program; Referring Provider Student in an Organized Health Care Education/Training Program; Visit Provider Student in an Organized Health Care Education/Training Program
DX: I10 Essential (primary) hypertension (principal); G25.81 Restless legs syndrome
CPT/HCPCS: 36415; 80048; 82728; 83540; 83550

== ENCOUNTER → 2022-09-05 13:08 | Outpatient (CLI) | payer MEDICARE, OTHER, SELFPAY ==
[2019-09-01 16:04] VITALS: BMI 192.0
[2022-09-05 14:28] LABS: COVID19 -Nasal RAPID Negative (Negative)
== END ==
PROVIDERS: PCP Student in an Organized Health Care Education/Training Program; Referring Provider Internal Medicine; Visit Provider Internal Medicine
DX: Z20.822 Contact with and (suspected) exposure to COVID-19 (principal)
CPT/HCPCS: 87635; C9803

== ENCOUNTER → 2022-09-06 07:55 | Outpatient (CLI) | payer MEDICARE, OTHER, SELFPAY ==
[2019-09-01 16:04] VITALS: BMI 192.0
--- NOTE | 2022-09-11 09:46 | PM.PFT.1 ---
Pulmonary Function Test Referral & Results Date Patient Seen: 09/06/22 Requesting provider: Cristofer Cedillo Results: The spirometry demonstrates an FVC of 1.67 L which is 61% of predicted. The FEV1 was measured at 0.98 L which is 47% of predicted. The FEV1/FVC ratio was 59 which is 78% of predicted. Following the administration of bronchodilator there was a 23% improvement in FEV1 and a 120% improvement in FEF 25-75%. Lung volumes show an SVC of 1.97 L which is 73% of predicted. The diffusing capacity was measured at 20.59 which is 89% of predicted. The maximum voluntary ventilation was reduced Interpretation: This study demonstrates severe obstructive lung disease with FEV1 of less than 1 L as above. There is evidence of significant benefit following bronchodilator as above Compared to PFTs performed in April 2021, this study is essentially unchanged
== END ==
PROVIDERS: PCP Student in an Organized Health Care Education/Training Program; Referring Provider Student in an Organized Health Care Education/Training Program; Visit Provider Student in an Organized Health Care Education/Training Program
DX: J44.9 Chronic obstructive pulmonary disease, unspecified (principal); Z87.891 Personal history of nicotine dependence
CPT/HCPCS: 94060; 94726; 94729

== ENCOUNTER → 2022-09-20 10:57 | Outpatient (CLI) | payer MEDICARE, OTHER, SELFPAY ==
[2019-09-01 16:04] VITALS: BMI 192.0
--- NOTE | 2022-09-20 10:58 | DI.CT.S_ITS ---
PROCEDURE: CT CHEST WO CON INDICATIONS: F/u pulmonary nodule TECHNIQUE: Noncontrast 2.0-2.5 mm thick sections acquired from the pulmonary apices to the posterior costophrenic angles. 7 mm thick axial MIP and 5 mm coronal and sagittal reformats were then acquired. A low radiation dose technique was utilized. COMPARISON: [facility], CT, THORAX WITHOUT CONTRAST, 04/10/2016, 13:57. [facility], CT, THORAX WITHOUT CONTRAST, 01/21/2018, 14:50. [facility], CT, THORAX WITHOUT CONTRAST, 03/31/2017, 8:44. FINDINGS: Image quality: Diagnostic, given the low radiation dose technique. Lungs and pleura: Multiple lung nodules are present bilaterally, unchanged in size. Reference nodules are listed in the following: Nodule 1: 5 mm; subsolid; left lower lobe; series 3, image 216. Nodule 2: 3 mm; subsolid; left upper lobe; series 3, image 66. Nodule 3: 3 mm; solid; right lower lobe; series 3, image 189. Nodule 4: 3 mm; solid; right lower lobe; series 3, image 158. There is a cluster nodule in the right middle lobe (series 3, image 151), measuring up to 3 mm, new since the last exam. There are bilateral lower lobe scars and atelectasis Mediastinum: Heart size is normal. No pericardial effusion. No mediastinal adenopathy by size criteria. Thoracic aorta and central pulmonary arteries are normal in size. Esophagus is normal in caliber. Small hiatal hernia. Bones and chest wall: No suspicious bony lesions. No vertebral body compression fractures. No axillary or supraclavicular adenopathy by size criteria. Subcentimeter axillary lymph nodes are seen bilaterally, nonspecific. Thyroid gland is normal. Abdomen: There is a 1.2 x 1.7 cm hypodense nodule in the left hepatic lobe, unchanged. Visualized upper abdomen solid organs and bowel loops appear normal in the absence of contrast. IMPRESSION: 1. Stable existing pulmonary nodules. The nodules are likely benign. No further follow-up is recommended. 2. A clustered nodules are seen in the right middle lobe measuring up to 3 mm. The nodules are most likely inflammatory or infectious in etiology. Please see enclosed follow-up recommendation. Fleischner Society criteria for SOLID lung nodule followup. Nodule size (mm)Low-risk patientHigh-risk patient<6 (single or multiple)No routine followup.Optional CT at 12 months. 6-8 (single or multiple)CT at 6-12 months, then optional CT at 18-24 mo.CT at 6-12 months, then CT at 18-24 months. >8 (single)CT at 3 months, PET-CT, or biopsy. Same as for low-risk pts. >8 (multiple)CT at 3-6 months, then optional CT at 18-24 mo.CT at 3-6 months, then CT at 18-24 months. Fleischner Society criteria for SUB-SOLID lung nodule followup. Solitary pure ground-glass nodules<6 mm (ground glass or part solid)No followup needed. 6 mm or larger (ground glass)CT at 6-12 months to confirm persistence, then CT every 2 years until 5 years.6 mm or larger (part solid)CT at 3-6 months to confirm persistence, then annual CT until 5 years if unchanged and solid component remains <6 mm. Multiple sub-solid nodules<6 mmCT at 3-6 months, then CT consider at 2 & 4 years for high risk patients. [address] at 3-6 months. Subsequent management based on most suspicious lesions. Recommendations do not apply to lung cancer screening, patients with immunosuppression, or patients with known primary cancer. Dictated by: Citlalli Price M.D. on 09/20/2022 at 12:33 Approved by: Citlalli Price M.D. on 09/20/2022 at 13:26
== END ==
PROVIDERS: PCP Student in an Organized Health Care Education/Training Program; Referring Provider Student in an Organized Health Care Education/Training Program; Visit Provider Student in an Organized Health Care Education/Training Program
DX: R91.8 Other nonspecific abnormal finding of lung field (principal)
CPT/HCPCS: 71250

== ENCOUNTER → 2022-12-23 06:59 | Outpatient (CLI) | payer MEDICARE, OTHER, SELFPAY ==
[2019-09-01 16:04] VITALS: BMI 192.0
--- NOTE | 2022-12-23 07:01 | DI.ECHO.S_ITS ---
[facility] +---------+ : : [address] [place] : : : : [id number] : : : : Phone: [phone]+ Echocardiogram Report + + :Name: AMADO WILL Study Date: 12/23/2022 Height: 62 in : :[facility] ReadingLocation: Weight: 170 lb : : Gender: Female BSA: 1.8 m2 : :: 1950 Age: 72 yrs BP: 163/75 mmHg: :Reason For Study: Dyspnea : :Ordering Physician: KOLBY, : :CHINO Performed By: Yanely Ballesteros : :Referring: CHINO JARRETT : + + Interpretation Summary Normal left ventricle size with ejection fraction 60-65%. Diastolic parameters suggest a pseudonormalization pattern, consistent with probable elevated filling pressures. Mild aortic valve sclerosis. The mitral valve leaflets are slightly calcified. Mild mitral regurgitation. Mild tricuspid regurgitation. The right ventricular systolic pressure is estimated to be at least 34.1 mmHg based on an estimated right atrial pressure of 3 mm Hg. Procedure: A two-dimensional transthoracic echocardiogram with color flow and Doppler was performed. The study quality was technically good. The patient was in sinus bradycardia with heart rates between 59-69 bpm during the exam. Left Ventricle: The left ventricle is normal in size and wall thickness. The ejection fraction is estimated to be 60-65%. There are no focal wall motion abnormalities. Diastolic parameters suggest a pseudonormalization pattern, consistent with probable elevated filling pressures. Right Ventricle: The right ventricle is normal in size and function. Atria: The left atrial size is normal. Right atrial size is normal. There is no Doppler evidence for an interatrial shunt. Mitral Valve: The mitral valve leaflets appear mildly thickened, but open well. The mitral valve leaflets appear to open well. The mitral valve leaflets are slightly calcified. There is mild mitral regurgitation. Aortic Valve: The aortic valve is normal in structure and function. There is mild aortic valve sclerosis. No aortic regurgitation is present. Tricuspid Valve: The tricuspid valve is normal. There is mild tricuspid regurgitation. The right ventricular systolic pressure is estimated to be at least 34.1 mmHg based on an estimated right atrial pressure of 3 mm Hg. Pulmonic Valve: The pulmonic valve leaflets are thin and pliable; valve motion is normal. There is a trace or physiologic amount of pulmonic regurgitation. Great Vessels: The aortic root is normal size. The ascending aorta is normal in size. The pulmonary is not well visualized. The IVC is of normal diameter and collapses greater than 50% with a sniff. This suggests a low right atrial pressure of 3 mm Hg. Pericardium/ Pleura There is no pericardial effusion. There is an anterior echo-free space consistent with a fat pad. There is no pleural effusion. MMode/2D Measurements & Calculations LVIDd: 3.9 cm LVOT diam: 1.9 cm LVIDs: 2.7 cm Ao root diam: 3.3 cm FS: 30.8 % asc Aorta Diam: 3.1 cm EPSS: 0.20 cm IVSd: 1.0 cm LVPWd: 1.0 cm LV aiken. diameter/BSA (cm/m^2): 2.2 LV sys. diameter/BSA (cm/m^2): 1.5 LA dimension: 3.8 cm RA long axis: 4.9 cm LA A2 area: 19.1 cm2 IVC diam: 2.0 cm LA A4 area: 16.1 cm2 LA length (vol): 5.0 cm LA vol: 52.6 ml LA vol index: 29.5 ml/m2 RVD1 (basal): 3.2 cm LVLs ap4: 5.7 cm LVLd ap2: 6.6 cm TAPSE_phl: 2.6 cm LVLs ap2: 5.5 cm Doppler Measurements & Calculations Ao V2 max: 141.0 cm/sec LVOT Max Denilson: 102.0 cm/sec Ao V2 mean: 96.9 cm/sec LV V1 max P.2 mmHg Ao max P.0 mmHg LV V1 VTI: 24.1 cm Ao mean P.0 mmHg IGOR(I,D): 2.0 cm2 Ao V2 VTI: 34.3 cm IGOR(V,D): 2.1 cm2 sev ratio: 0.70 IGOR indexed to BSA (cm^2/m^2): 1.1 MV E max denilson: 117.0 cm/sec TR max denilson: 292.0 cm/sec MV A max denilson: 98.5 cm/sec TR max P.1 mmHg MV E/A: 1.2 PA V2 max: 66.8 cm/sec Med Peak E' Denilson: 6.9 cm/sec PA V2 mean: 47.9 cm/sec E/E' med: 17.0 PA mean P.0 mmHg Lat Peak E' Denilson: 7.7 cm/sec E/E' lat: 15.1 E/e' average: 16.1 MV dec time: 0.23 sec MVA(VTI): 1.8 cm2 MV V2 mean: 66.7 cm/sec SV(LVOT): 68.3 ml MV mean P.0 mmHg MV V2 VTI: 37.7 cm AV VR_phl: 0.72 MV P1/2t-pr_phl: 67.0 msec IGOR(VTI)/BSA_phl: 1.1 Electronically signed by: Marco Meyers on Reading Physician:12/23/2022 08:35 AM
== END ==
PROVIDERS: PCP Student in an Organized Health Care Education/Training Program; Referring Provider Student in an Organized Health Care Education/Training Program; Visit Provider Student in an Organized Health Care Education/Training Program
DX: R06.00 Dyspnea, unspecified (principal); J44.9 Chronic obstructive pulmonary disease, unspecified; I08.3 Combined rheumatic disorders of mitral, aortic and tricuspid valves
CPT/HCPCS: 93306

== ENCOUNTER → 2023-08-07 07:27 | Outpatient (CLI) | payer MEDICARE, OTHER, SELFPAY ==
[2019-09-01 16:04] VITALS: BMI 192.0
--- NOTE | 2023-08-07 | DI.MRI.S_ITS ---
PROCEDURE: MR KNEE LT WO CON INDICATIONS: internal derangement of lt knee TECHNIQUE: Noncontrast sagittal PD fast spin echo and STIR, sagittal 3-D FLASH with fat saturation; coronal T1 spin echo and STIR, and axial STIR through the knee. COMPARISON: [facility], CR, XR KNEE ARTHRITIC SERIES LT, 05/28/2023, 13:12. FINDINGS: Image quality: Images are mildly degraded by expected metallic artifact related to the unicondylar arthroplasty despite utilization of metal artifact reduction sequences. Diagnostic information is obtained. Anterior Cruciate Ligament: Intact. Posterior Cruciate Ligament: Intact. Medial Collateral Ligament: Intact. Lateral Collateral Ligament: Intact. Medial Meniscus: Intact. Medial and Lateral Tendons: The semimembranosus tendon insertions and meniscocapsular junction appear intact. Visualized portions of the pes anserinus tendons appear normal. No abnormal bursal fluid. The long and short heads of the biceps femoris tendon appear intact. The popliteus tendon appears intact. No signs of posterolateral corner injury. Iliotibial band appears normal. Anterior Structures: The quadriceps and patellar tendons appear intact. No patellar subluxation. No femoral trochlear dysplasia or ventral trochlear prominence. No edema in the infrapatellar fat pad. Bones: Postsurgical changes from lateral unicompartmental knee arthroplasty with expected metal artifact that obscures adjacent structures. No focal osseous edema or acute trabecular bone injury identified. Medial Femorotibial Cartilage: Mild partial-thickness cartilage thinning and surface irregularity in the weight-bearing portion of the medial femorotibial compartment without a focal defect. Small marginal osteophytes are present. Patellofemoral Cartilage: High-grade cartilage irregularity is seen at the median ridge of the patella in the adjacent portions of the medial and lateral patellar facets as well as throughout the femoral trochlea. Soft Tissues: Small joint effusion is present. Trace medial popliteal cyst. The musculature surrounding the knee is normal in bulk. IMPRESSION: 1. Postsurgical changes from lateral unicompartmental knee arthroplasty with expected appearance. No acute osseous abnormality is seen. 2. 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 There is grade 2 chondromalacia and cartilage thinning in the weight-bearing portion of the medial femorotibial compartment. 3. Cruciate and collateral ligaments are intact. Medial meniscus is intact. 4. Small joint effusion. Approved by: Joshua Camarena M.D. on 08/07/2023 at 12:50
--- NOTE | 2023-08-07 07:29 | DI.MG.S_ITS ---
BILATERAL DIGITAL SCREENING MAMMOGRAM 3D/2D WITH CAD: 08/07/2023 CLINICAL: Routine screening. Comparison is made to exams dated: 03/20/2022 mammogram, 06/12/2020 mammogram, and 12/16/2018 mammogram - [facility]. Both breasts are heterogeneously dense, which may obscure small masses (category c / 51-75% glandular tissue). Current study was also evaluated with a Computer Aided Detection (CAD) system. There is a benign calcification in the left breast. There are mole markers on the left breast. No significant masses, calcifications, or other findings are seen in either breast. There has been no significant interval change. IMPRESSION: BENIGN There is no mammographic evidence of malignancy. A 1 year screening mammogram is recommended. Based on the Tyrer Cuzick model (a risk assessment model) the patient's lifetime risk is 4.1% and her 10 year risk is 4.1%. According to the ACR, ACS, and NCCN guidelines, an annual breast MRI exam along with mammogram is recommended if the patient's lifetime risk is 20% or greater. This exam was interpreted at Station ID: [id number]. NOTE: For mammograms, a report in lay terms will be sent to the patient. Approximately 15% of breast malignancies will not be visualized mammographically. In the management of a palpable breast mass, a negative mammogram must not discourage biopsy of a clinically suspicious lesion. Electronically Signed By: Julian Dickson M.D. acr/penrad:08/07/2023 11:53:20 copy to: MADY PRESCOTT letter sent: Normal Exam ACR BI-RADS Category 2: Benign Finding(s) 3342F
== END ==
PROVIDERS: PCP Internal Medicine; Referring Provider Orthopaedic Surgery; Visit Provider Orthopaedic Surgery
DX: Z12.31 Encounter for screening mammogram for malignant neoplasm of breast (principal); M23.92 Unspecified internal derangement of left knee; Z96.652 Presence of left artificial knee joint; M94.262 Chondromalacia, left knee; M25.462 Effusion, left knee
CPT/HCPCS: 73721; 77063; 77067

== ENCOUNTER → 2023-10-21 08:44 | Outpatient (CLI) | payer MEDICARE, OTHER, SELFPAY ==
[2019-09-01 16:04] VITALS: BMI 192.0
[2023-10-21 09:15] LABS: Hematocrit 37.1 % (36-46); Hemoglobin 12.4 g/dL (12.0-16.0); Mean Corpuscular HGB Conc 33.4 % (30-36); Mean Corpuscular Hemoglobin 29.2 PG (26-34); Mean Corpuscular Volume 87.4 fL (80-100); Platelet Count 311 X10^3/uL (150-400); Red Blood Cell Count 4.25 X10^6/uL (4.0-5.2); Red Cell Distribution Width 13.4 % (11.6-14.8); White Blood Cell Count 5.6 X10^3/uL (4.5-11.0)
[2023-10-21 09:46] LABS: Alanine Aminotransferase 28 IU/L (<35); Albumin Globulin Ratio 1.3 (1.0-2.8); Alkaline Phosphatase 68 U/L (38-126); Aspartate Aminotransferase 27 IU/L (14-36); BUN Creatinine Ratio 24.4 (6-22); Bilirubin Total 0.5 mg/dL (0.2-1.3); Blood Urea Nitrogen 19 mg/dL (7-17); Calcium 9.3 mg/dL (8.4-10.2); Carbon Dioxide 29 mmol/L (22-32); Chloride 99 mmol/L (98-107); Cholesterol 168 mg/dL (140-199); Estimated Glomerular Filt Rate > 60 mL/min (>60); Globulin 3.2 g/dL (1.7-4.1); Glucose 99 mg/dL (80-110); HDL Cholesterol 55 mg/dL (40-60); HEMOLYSIS < 15 (0-50); LDL Cholesterol Calculated 94 mg/dL (<100); Potassium 4.4 mmol/L (3.4-5.1); Sodium 135 mmol/L (137-145); Total Protein 7.2 g/dL (6.3-8.2); Triglycerides 96 mg/dL (35-150)
[2023-10-21 13:48] LABS: TSH w/ Reflex to FT4 2.41 uIU/mL (0.47-4.68)
== END ==
PROVIDERS: PCP Internal Medicine; Referring Provider Internal Medicine; Visit Provider Internal Medicine
DX: I10 Essential (primary) hypertension (principal); E78.2 Mixed hyperlipidemia
CPT/HCPCS: 36415; 80053; 80061; 84443; 85027

== ENCOUNTER → 2023-12-29 10:17 | Outpatient (CLI) | payer MEDICARE, OTHER, SELFPAY ==
[2019-09-01 16:04] VITALS: BMI 192.0
[2023-12-29 12:21] LABS: Appearance Urine UA CLEAR; Bilirubin Urine UA NEGATIVE (NEGATIVE); Color Urine UA YELLOW; Glucose Urine UA NEGATIVE (Negative); Ketones Urine UA NEGATIVE (NEGATIVE); Leukocyte Esterase Urine UA TRACE (NEGATIVE); Nitrite Urine UA NEGATIVE (Negative); Occult Blood Urine UA TRACE-INTACT (Negative); Protein Urine UA NEGATIVE (Negative); Specific Gravity Urine UA 1.015 (1.000-1.035); Urine Volume 10mL (spun); Urobilinogen Urine UA 0.2 E.U./dL (0.2)
[2023-12-29 12:24] LABS: Bacteria Urine None Seen; Culture Indicated Urine Specimen Cultured; RBC Urine 1-5/HPF (0-5/HPF); Squamous Epithelial Cell Urine 1-5 /HPF (0-5/HPF); WBC Urine 5-10/HPF (0-5/HPF)
== END ==
PROVIDERS: PCP Internal Medicine; Referring Provider Internal Medicine; Visit Provider Internal Medicine
DX: N39.0 Urinary tract infection, site not specified (principal)
CPT/HCPCS: 81001; 87077; 87086; 87186

== ENCOUNTER 2024-01-23 16:29 | Emergency (ER) | payer MEDICARE, OTHER, SELFPAY ==
[2019-09-01 16:04] VITALS: BMI 192.0
[2024-01-23] VITALS (9 sets, daily range): BP systolic 124–169; BP diastolic 60–79; PULSE 76–99; RESP 16–18; TEMP 36.8; O2SAT 95–97; BMI 31.1
--- NOTE | 2024-01-23 16:44 | DI.RAD.S_ITS ---
PROCEDURE: XR CHEST 1V INDICATIONS: Shortness of breath TECHNIQUE: One view of the chest was acquired. COMPARISON: [facility], [place], XR CHEST 2V, 12/09/2019, 17:31. [facility], [place], CHEST 2 VIEW, 12/09/2017, 9:06. FINDINGS: Surgical changes and devices: None. Lungs and pleura: Lungs are clear. No pleural effusions or pneumothorax. Mediastinum: Mediastinal contours appear normal. Heart size is normal. Bones and chest wall: No suspicious bony lesions. Overlying soft tissues appear unremarkable. IMPRESSION: No acute cardiopulmonary abnormality is seen. Dictated by: Jones Sheikh M.D. on 01/23/2024 at 17:13 Approved by: Jones Sheikh M.D. on 01/23/2024 at 17:13
[2024-01-23 17:01] LABS: Add Manual Diff / Slide Review NO; Basophils Absolute Auto 0 /uL (0-100); Basophils Percent Auto 0.5 % (0-2); Eosinophils Absolute Auto 200 /uL (0-450); Eosinophils Percent Auto 2.5 % (2-4); Hematocrit 33.6 % (36-46); Lymphocytes Absolute Auto 1500 /uL (1100-4500); Lymphocytes Percent Auto 20.5 % (25-40); Mean Corpuscular HGB Conc 32.7 % (30-36); Mean Corpuscular Hemoglobin 28.1 PG (26-34); Monocytes Absolute Auto 600 /uL (0-900); Monocytes Percent Auto 8.5 % (3-14); Neutrophils Absolute Auto 5100 /uL (1500-7000); Platelet Count 349 X10^3/uL (150-400); Red Blood Cell Count 3.91 X10^6/uL (4.0-5.2); Red Cell Distribution Width 14.3 % (11.6-14.8); White Blood Cell Count 7.5 X10^3/uL (4.5-11.0)
[2024-01-23 17:11] LABS: Lactate (Lactic Acid) 0.8 mmol/L (0.7-2.1)
[2024-01-23 17:12] LABS: Alanine Aminotransferase 20 IU/L (<35); Albumin 4.2 g/dL (3.5-5.0); Albumin Globulin Ratio 1.2 (1.0-2.8); Alkaline Phosphatase 81 U/L (38-126); Aspartate Aminotransferase 22 IU/L (14-36); Bilirubin Total 0.4 mg/dL (0.2-1.3); Blood Urea Nitrogen 23 mg/dL (7-17); Calcium 9.7 mg/dL (8.4-10.2); Carbon Dioxide 30 mmol/L (22-32); Chloride 104 mmol/L (98-107); Estimated Glomerular Filt Rate > 60 mL/min (>60); Globulin 3.6 g/dL (1.7-4.1); Glucose 112 mg/dL (80-110); HEMOLYSIS < 15 (0-50); Sodium 138 mmol/L (137-145); Total Protein 7.8 g/dL (6.3-8.2)
[2024-01-23 17:23] LABS: NT-proBNP (BNP-Adult 18+) 365 pg/mL (<450); Troponin I < 0.012 ng/mL (0.01-0.034)
[2024-01-23 18:48] LABS: Appearance Urine UA CLEAR; Bilirubin Urine UA NEGATIVE (NEGATIVE); Color Urine UA YELLOW; Glucose Urine UA NEGATIVE (Negative); Ketones Urine UA NEGATIVE (NEGATIVE); Leukocyte Esterase Urine UA TRACE (NEGATIVE); Nitrite Urine UA NEGATIVE (Negative); Occult Blood Urine UA NEGATIVE (Negative); Protein Urine UA NEGATIVE (Negative); Specific Gravity Urine UA <=1.005 (1.000-1.035); Urobilinogen Urine UA 0.2 E.U./dL (0.2)
[2024-01-23 18:49] LABS: pH Urine UA 5.5 (4.5-8.0)
--- NOTE | 2024-01-23 18:52 | ED_ITS ---
HPI - General Adult General Chief complaint: Shortness of Breath/Dyspnea Stated complaint: edema in legs and feet, sob, sent by [facility] Time Seen by Provider: 01/23/24 17:55 Source: patient Mode of arrival: Ambulatory History of Present Illness HPI narrative: Patient is a 73-year-old female who initially was sent to the emergency department for swelling in her legs and feet and shortness of breath from the walk-in clinic. The shortness of breath is not necessarily new. She has a history of COPD. She states she is swelling in her lower legs and has a rash from her toes to just above her ankles. She denies any new exposures to include lotions soaps or shampoos. Has not tried anything for the rash prior to arrival. No recent travel. No fevers. No cough. Related Data Home Medications Medication Instructions Recorded Confirmed ascorbic acid (vitamin C) 250 mg 500 mg PO DAILY Immune system 10/21/23 01/23/24 chewable tablet (Vitamin C) support calcium carbonate 500 mg calcium 500 mg PO DAILY Bone density 10/21/23 01/23/24 (1,250 mg) chewable tablet (Calcium 500) cholecalciferol (vitamin D3) 25 25 mcg PO DAILY Immune system 10/21/23 01/23/24 mcg (1,000 unit) capsule (Vitamin D3) multivitamin (Daily Multi-Vitamin 1 tab PO DAILY Immune system, 10/21/23 01/23/24 tablet) strong bones vitamin B12 1,000 mcg-folic acid alejandra sublingual Fatigue 10/21/23 01/23/24 400 mcg sublingual lozenge Previous Rx's Medication Instructions Recorded ferrous gluconate 324 mg (38 mg 324 mg PO DAILY #90 tabs 01/11/21 iron) tablet acyclovir 200 mg capsule See Rx Instructions .Route 10/21/23 .COMPLEX #50 caps atorvastatin 20 mg tablet 20 mg PO BEDTIME #90 tabs 10/21/23 clonazepam 0.5 mg tablet 0.25 mg (1/2 x 0.5 mg) PO BID PRN 10/21/23 anxiety #10 tabs fluticasone 500 mcg-salmeterol 50 1 inh inhalation BID #180 ea 10/21/23 mcg/dose blistr powdr for inhalation fluticasone propionate 50 1 spray intranasal BID #16 grams 10/21/23 mcg/actuation nasal spray,suspension (Flonase Allergy Relief) ipratropium bromide 0.02 % 2.5 ml inhalation Q6H PRN 10/21/23 solution for inhalation shortness of breath or wheezing #75 mL lisinopril 10 mg tablet 10 mg PO QDAY #90 tabs 10/21/23 montelukast 10 mg tablet 10 mg PO QDAY #90 tabs 10/21/23 (Singulair) pramipexole 0.5 mg tablet 0.5 mg PO HS #90 tabs 10/21/23 tiotropium bromide 18 mcg capsule 1 cap inhalation QDAY #3 ea 10/21/23 with inhalation device (Spiriva with HandiHaler) albuterol sulfate 2.5 mg/3 mL 2.5 mg (3 mL) inhalation Q4-6H PRN 11/10/23 (0.083 %) solution for nebulization asthma #75 mL fluconazole 150 mg tablet 150 mg PO Q3D 2 doses #2 tabs 12/29/23 hydrocortisone 2.5 % topical cream 1 applic topical TID #20 grams 01/23/24 Allergies Allergy/AdvReac Type Severity Reaction Status Date / Time animal dander [ANIMAL DANDER] Allergy Mild Verified 01/23/24 14:36 grass pollen-perennial rye, Allergy Mild Verified 01/23/24 14:36 standar [GRASS POLL-PERENNIAL RYE,STD] erythromycin base AdvReac Mild vaginal Verified 01/23/24 14:36 yeast infection DUST Allergy Mild Uncoded 01/23/24 14:36 Review of Systems Review of Systems ROS Unobtainable: All systems reviewed & are unremarkable except as noted in HPI and below Patient History Medical History Obesity (BMI 30.0-34.9) Primary osteoarthritis involving multiple joints Generalized anxiety disorder COPD (chronic obstructive pulmonary disease) Asthma, mild intermittent History of uterine cancer Osteopenia Allergic rhinitis Mixed hyperlipidemia Pulmonary nodules Essential hypertension History of benign breast biopsy (05/01/00) Benign disease of right breast (1999) Asthma RLS (restless legs syndrome) Narcolepsy Surgical History History of colonoscopy (11/25/05) History of tonsillectomy and adenoidectomy (~1960) History of breast lump/mass excision (~1999) History of breast lump/mass excision (10/03/10) Status post hysterectomy (09/09/06) Status post breast lumpectomy (2000) Status post tubal ligation Status post hemorrhoidectomy Family History Brother Alcoholic Smoker [place] (myocardial infarction) Father COPD (chronic obstructive pulmonary disease) Kidney failure Heart failure Respiratory failure Mother Osteoporosis Colon cancer Sister Age: 73 Cerebral palsy Sister Age: 68 Obesity Social History details: ([place] - vascular dementia), one son/daughter, retired lgl private secretary household members: spouse Smoking Status: Former smoker Tobacco: How many years used: 16 alcohol intake: current Smoking Status: Former smoker alcohol intake frequency: holidays/special occasions only Substance Use Type: does not use Exam Initial Vital Signs Initial Vital Signs: Vital Signs Temperature 98.3 F 01/23/24 16:31 Pulse Rate 99 H 01/23/24 16:31 Respiratory Rate 18 01/23/24 16:31 Blood Pressure 139/64 01/23/24 16:31 Pulse Oximetry 97 01/23/24 16:31 Oxygen Delivery Method Room Air 01/23/24 16:31 Const General: comfortable and No ill appearing HENMT Head: normal to inspection and normocephalic Resp Effort & Inspection: normal respiratory effort Auscultation: clear to auscultation bilaterally Cardio Rate: regular rate Rhythm: regular rhythm Skin Other: Patient with a fine sandpaper-like rash specifically on the dorsum of both of her feet that go around her ankles and up to the distal 1/3 of the lower extremity. It is equal on both sides. No pustules. No vesicles. It is associated with dry skin. Extrem Other: Minimal bilateral ankle edema. Course Orders Ordered: ED Orders 01/23/24 16:44 XR chest 1V Stat Measure peak expiratory flow ONCE RT Consult Eval and Treat NOW 01/23/24 16:51 Complete Blood Count AUTO DIFF Stat Comprehensive Metabolic Panel Stat Lactate (Lactic Acid) Stat NT-proBNP (BNP-Adult 18+) Stat Prothrombin Time INR Stat Troponin I Stat 01/23/24 17:05 EKG-12 Lead Stat 01/23/24 18:39 UA dip [Urinalysis Screen (Dip Only)] Stat Urine Culture Stat Urine Microscopic Stat Vital Signs Vital signs: Vital Signs - 8 hr 01/23/24 16:31 01/23/24 16:42 01/23/24 16:42 Temperature 98.3 F Pulse Rate 99 H 98 H Respiratory Rate 18 Blood Pressure 139/64 124/68 Pulse Oximetry 97 97 Oxygen Delivery Method Room Air 01/23/24 17:00 01/23/24 17:00 01/23/24 17:30 Temperature Pulse Rate 85 79 Respiratory Rate Blood Pressure 169/79 H Pulse Oximetry 97 97 Oxygen Delivery Method 01/23/24 17:30 01/23/24 18:00 01/23/24 18:00 Temperature Pulse Rate 78 Respiratory Rate Blood Pressure 136/61 136/64 Pulse Oximetry 97 Oxygen Delivery Method 01/23/24 18:30 01/23/24 18:30 01/23/24 19:01 Temperature Pulse Rate 81 76 Respiratory Rate Blood Pressure 135/60 Pulse Oximetry 97 95 Oxygen Delivery Method Room Air 01/23/24 19:02 01/23/24 19:03 01/23/24 19:03 Temperature Pulse Rate 76 78 Respiratory Rate 16 Blood Pressure 153/71 H Pulse Oximetry 97 97 Oxygen Delivery Method Room Air Medical Decision Making Lab Data Lab results reviewed: Yes I reviewed the patient's lab results. 01/23/24 16:51 01/23/24 16:51 Labs: Lab Results 01/23/24 01/23/24 Range/Units 16:51 18:39 WBC 7.5 (4.5-11.0) X10^3/uL RBC 3.91 L (4.0-5.2) X10^6/uL Hgb 11.0 L (12.0-16.0) g/dL Hct 33.6 L (36-46) % MCV 86.0 (80-100) fL MCH 28.1 (26-34) PG MCHC 32.7 (30-36) % RDW 14.3 (11.6-14.8) % Plt Count 349 (150-400) X10^3/uL Neut % (Auto) 68.0 (50-75) % Lymph % (Auto) 20.5 L (25-40) % [place] % (Auto) 8.5 (3-14) % Eos % (Auto) 2.5 (2-4) % Baso % (Auto) 0.5 (0-2) % Neut # (Auto) 5100 (3280-9975) /uL Lymph # (Auto) 1500 (3756-1349) /uL [place] # (Auto) 600 (0-900) /uL Eos # (Auto) 200 (0-450) /uL Baso # (Auto) 0 (0-100) /uL PT 12.0 (9.4-12.5) SECONDS INR 1.0 (0.9-1.3) Sodium 138 (137-145) mmol/L Potassium 4.0 (3.4-5.1) mmol/L Chloride 104 (98-107) mmol/L Carbon Dioxide 30 (22-32) mmol/L BUN 23 H (7-17) mg/dL Creatinine 0.92 (0.52-1.04) mg/dL Estimated GFR > 60 (>60) mL/min BUN/Creatinine Ratio 25.0 H (6-22) Glucose 112 H (80-110) mg/dL Lactate 0.8 (0.7-2.1) mmol/L Calcium 9.7 (8.4-10.2) mg/dL Total Bilirubin 0.4 (0.2-1.3) mg/dL AST 22 (14-36) IU/L ALT 20 (<35) IU/L Alkaline Phosphatase 81 (38-126) U/L Troponin I < 0.012 (0.01-0.034) ng/mL NT-Pro-B Natriuret Pep 365 (<450) pg/mL Total Protein 7.8 (6.3-8.2) g/dL Albumin 4.2 (3.5-5.0) g/dL Globulin 3.6 (1.7-4.1) g/dL Albumin/Globulin Ratio 1.2 (1.0-2.8) Urine Color Yellow Urine Appearance Clear Urine pH 5.5 (4.5-8.0) Ur Specific [place] <=1.005 (1.000-1.035) Urine Protein Negative (Negative) Urine Glucose (UA) Negative (Negative) g/dL Urine Ketones Negative (NEGATIVE) Urine Occult Blood Negative (Negative) Urine Nitrate Negative (Negative) Urine Bilirubin Negative (NEGATIVE) Urine Urobilinogen 0.2 (0.2) E.U./dL Ur Leukocyte Esterase Trace H (NEGATIVE) Urine RBC 0-1/hpf (0-5/HPF) Urine WBC 1-5/hpf (0-5/HPF) Ur Squamous Epith Cells 1-5 /hpf (0-5/HPF) Urine Bacteria Occasional (0-1) (None) Ur Culture Indicated? Specimen cultured Vol Urine Centrifuged 10ml (spun) Imaging Data Chest x-ray: Radiologist's Impression: PROCEDURE: XR CHEST 1V INDICATIONS: Shortness of breath TECHNIQUE: One view of the chest was acquired. COMPARISON: [facility], , XR CHEST 2V, 12/09/2019, 17:31. [facility], , CHEST 2 VIEW, 12/09/2017, 9:06. FINDINGS: Surgical changes and devices: None. Lungs and pleura: Lungs are clear. No pleural effusions or pneumothorax. Mediastinum: Mediastinal contours appear normal. Heart size is normal. Bones and chest wall: No suspicious bony lesions. Overlying soft tissues appear unremarkable. IMPRESSION: No acute cardiopulmonary abnormality is seen. ECG Data Attestation: I personally reviewed and interpreted this ECG as follows: Interpretation: Sinus rhythm Ventricular rate is 79 Normal axis Normal QRS Normal QTC No ST T wave changes MDM Narrative Medical decision making narrative: Patient is clinically not in heart failure. She was not tachypneic. Not hypoxic. Lungs are clear. She does have a sandpaper-like rash on both of her feet and up to her ankles. This does not appear to be cellulitis. No trauma. No other rash noted around her body. Unsure the exact etiology. I suspect that the slight swelling around her ankles is related to this. Will place her on topical steroid cream for the next couple days. She was instructed that if her symptoms worsen that she needs to return to the emergency department. Will have her contact her primary doctor for follow-up. Discharge Plan Departure Patient Disposition: Home Clinical Impression: Rash Instructions: DI for Rash Activity Restrictions/Additional Instructions: Use the steroid cream 3 times a day as directed. Use regular moisturizing cream in between the times of using the steroid. If the symptoms worsen after starting the steroid stop the medication. Return to the emergency department for new or worsening symptoms. Prescriptions: New hydrocortisone 2.5 % cream 1 applic topical TID Qty: 20 3RF No Action ferrous gluconate 324 mg (38 mg iron) tablet 324 mg PO DAILY Qty: 90 1RF albuterol sulfate 2.5 mg /3 mL (0.083 %) solution for nebulization 2.5 mg inhalation Q4-6H PRN (Reason: asthma) Qty: 75 12RF vitamin [id number] acid 1,000-400 mcg lozenge sublingual cholecalciferol (vitamin D3) [Vitamin D3] 25 mcg (1,000 unit) capsule 25 mcg PO DAILY ascorbic acid (vitamin C) [Vitamin C] 250 mg tablet,chewable 500 mg PO DAILY multivitamin [Daily Multi-Vitamin] Tablet 1 tab PO DAILY calcium carbonate [Calcium 500] 500 mg calcium (1,250 mg) tablet,chewable 500 mg PO DAILY Patient Comments: Gummies with D3 (25 mcg) & zinc 7 mg acyclovir 200 mg capsule See Rx Instructions .ROUTE .COMPLEX Qty: 50 3RF Dose Instruction: Take 1 capsule by mouth five times daily for 5 days. Begin at first sign of outbreak. Rx Instructions: Take 1 capsule by mouth five times daily for 5 days. Begin at first sign of outbreak. clonazepam 0.5 mg tablet 0.25 mg PO BID PRN (Reason: anxiety) Qty: 10 5RF atorvastatin 20 mg tablet 20 mg PO BEDTIME Qty: 90 3RF lisinopril 10 mg tablet 10 mg PO QDAY Qty: 90 3RF fluticasone propion-salmeterol 500-50 mcg/dose blister with device 1 inh inhalation BID Qty: 180 3RF fluticasone propionate [Flonase Allergy Relief] 50 mcg/actuation spray,suspension 1 spray intranasal BID Qty: 16 11RF Rx Instructions: administer into each nostril ipratropium bromide 0.02 % solution 2.5 ml inhalation Q6H PRN (Reason: shortness of breath or wheezing) Qty: 75 11RF montelukast [Singulair] 10 mg tablet 10 mg PO QDAY Qty: 90 3RF tiotropium bromide [Spiriva with HandiHaler] 18 mcg capsule, w/inhalation device 1 cap INHALATION QDAY Qty: 3 3RF pramipexole 0.5 mg tablet 0.5 mg PO HS Qty: 90 3RF fluconazole 150 mg tablet 150 mg PO Q3D Qty: 2 1RF Rx Instructions: may repeat second dose 72 hrs after first dose if symptoms persist Referrals: Frank Chaves MD [Primary Care Provider] - Stand Alone Forms: Patient Portal/API
[2024-01-23 19:00] LABS: Bacteria Urine Occasional (0-1); Culture Indicated Urine Specimen Cultured; RBC Urine 0-1/HPF (0-5/HPF); Squamous Epithelial Cell Urine 1-5 /HPF (0-5/HPF); Urine Volume 10mL (spun); WBC Urine 1-5/HPF (0-5/HPF)
== END 2024-01-23 19:07 | disposition home or self-care (01) ==
PROVIDERS: Emergency Medicine; Emergency Provider Emergency Medicine; PCP Internal Medicine
DX: R21 Rash and other nonspecific skin eruption (principal); R06.02 Shortness of breath
CPT/HCPCS: 36415; 71045; 80053; 81003; 81015; 83605; 83880; 84484; 85025; 85610; 87086; 93005; 99283; 99284

== ENCOUNTER → 2024-02-03 10:16 | Outpatient (CLI) | payer MEDICARE, OTHER, SELFPAY ==
[2019-09-01 16:04] VITALS: BMI 192.0
[2024-02-03 11:10] LABS: Appearance Urine UA SL CLOUDY; Bilirubin Urine UA NEGATIVE (NEGATIVE); Color Urine UA YELLOW; Glucose Urine UA NEGATIVE (Negative); Ketones Urine UA NEGATIVE (NEGATIVE); Leukocyte Esterase Urine UA 1+ (NEGATIVE); Nitrite Urine UA NEGATIVE (Negative); Occult Blood Urine UA 3+ (Negative); Protein Urine UA TRACE (Negative); Specific Gravity Urine UA 1.015 (1.000-1.035); Urobilinogen Urine UA 0.2 E.U./dL (0.2)
[2024-02-03 11:41] LABS: Bacteria Urine None Seen; Culture Indicated Urine Specimen Cultured; RBC Urine 30-100/HPF (0-5/HPF); Squamous Epithelial Cell Urine 1-5 /HPF (0-5/HPF); Urine Volume 10mL (spun); WBC Urine 1-5/HPF (0-5/HPF)
== END ==
LOC: LAB 10:18
PROVIDERS: PCP Internal Medicine; Referring Provider Internal Medicine; Visit Provider Internal Medicine
DX: N30.00 Acute cystitis without hematuria (principal)
CPT/HCPCS: 81001; 87086

== ENCOUNTER 2024-08-04 10:15 | Outpatient (RCR) | payer MEDICARE, OTHER, SELFPAY ==
[2019-09-01 16:04] VITALS: BMI 192.0
== END 2024-08-04 12:15 ==
LOC: PUL 10:15
PROVIDERS: PCP Internal Medicine; Referring Provider Internal Medicine; Visit Provider Internal Medicine
DX: J44.9 Chronic obstructive pulmonary disease, unspecified (principal); J45.20 Mild intermittent asthma, uncomplicated
CPT/HCPCS: G0237; G0238

== ENCOUNTER → 2024-11-02 12:22 | Outpatient (CLI) | payer MEDICARE, OTHER, SELFPAY ==
[2019-09-01 16:04] VITALS: BMI 192.0
[2024-11-02 13:01] LABS: Hematocrit 36.8 % (36-46); Hemoglobin 12.2 g/dL (12.0-16.0); Mean Corpuscular HGB Conc 33.2 % (30-36); Mean Corpuscular Hemoglobin 29.1 PG (26-34); Mean Corpuscular Volume 87.9 fL (80-100); Platelet Count 319 X10^3/uL (150-400); Red Blood Cell Count 4.18 X10^6/uL (4.0-5.2); Red Cell Distribution Width 13.7 % (11.6-14.8)
[2024-11-02 13:19] LABS: Aspartate Aminotransferase 25 IU/L (14-36); BUN Creatinine Ratio 22.1 (6-22); Blood Urea Nitrogen 19 mg/dL (7-17); Calcium 9.6 mg/dL (8.4-10.2); Carbon Dioxide 29 mmol/L (22-32); Chloride 100 mmol/L (98-107); Cholesterol 159 mg/dL (140-199); Estimated Glomerular Filt Rate > 60 mL/min (>60); Glucose 84 mg/dL (80-110); HDL Cholesterol 57 mg/dL (40-60); HEMOLYSIS < 15 (0-50); LDL Cholesterol Calculated 84 mg/dL (<100); Potassium 4.8 mmol/L (3.4-5.1); Sodium 134 mmol/L (137-145); Triglycerides 92 mg/dL (35-150)
== END ==
PROVIDERS: PCP Internal Medicine; Referring Provider Internal Medicine; Visit Provider Internal Medicine
DX: I10 Essential (primary) hypertension (principal); E78.2 Mixed hyperlipidemia; J44.9 Chronic obstructive pulmonary disease, unspecified
CPT/HCPCS: 36415; 80048; 80061; 84450; 85027

== ENCOUNTER → 2024-11-18 16:44 | Outpatient (CLI) | payer MEDICARE, OTHER, SELFPAY ==
[2019-09-01 16:04] VITALS: BMI 192.0
--- NOTE | 2024-11-18 16:45 | DI.MG.S_ITS ---
BILATERAL DIGITAL SCREENING MAMMOGRAM 3D/2D WITH CAD: 11/18/2024 CLINICAL: Routine screening. Comparison is made to exams dated: 08/07/2023 mammogram, 03/20/2022 mammogram, and 06/12/2020 mammogram - . The breasts are heterogeneously dense, which may obscure small masses (category c / 51-75% glandular tissue). Current study was also evaluated with a Computer Aided Detection (CAD) system. There is a developing oval focal asymmetry in the right breast central to the nipple middle depth. No other significant masses, calcifications, or other findings are seen in either breast. IMPRESSION: INCOMPLETE: NEED ADDITIONAL IMAGING EVALUATION The developing oval focal asymmetry in the right breast is indeterminate. Additional views with possible ultrasound are recommended. Based on the Tyrer Cuzick model (a risk assessment model) the patient's lifetime risk is 3.8% and her 10 year risk is 0.0%. According to the ACR, ACS, and NCCN guidelines, an annual breast MRI exam along with mammogram is recommended if the patient's lifetime risk is 20% or greater. This exam was interpreted at Station ID: [id number]. NOTE: For mammograms, a report in lay terms will be sent to the patient. Approximately 15% of breast malignancies will not be visualized mammographically. In the management of a palpable breast mass, a negative mammogram must not discourage biopsy of a clinically suspicious lesion. Electronically Signed By: Raad cheatham/sabrina:11/19/2024 07:48:24 copy to: MADY PRESCOTT letter sent: Additional Imaging Needed ACR BI-RADS Category 0: Incomplete: Need Additional Imaging Evaluation
== END ==
PROVIDERS: PCP Internal Medicine; Referring Provider Internal Medicine; Visit Provider Internal Medicine
DX: Z12.31 Encounter for screening mammogram for malignant neoplasm of breast (principal); R92.333 Mammographic heterogeneous density, bilateral breasts
CPT/HCPCS: 77063; 77067

== ENCOUNTER → 2024-12-21 09:52 | Outpatient (CLI) | payer MEDICARE, OTHER, SELFPAY ==
[2019-09-01 16:04] VITALS: BMI 192.0
--- NOTE | 2024-12-21 09:53 | DI.US.S_ITS ---
LIMITED ULTRASOUND OF RIGHT BREAST AND AXILLA: 12/21/2024 CLINICAL: Patient returns today to evaluate a focal asymmetry in the right breast. Comparison is made to exams dated: 12/21/2024 mammogram, 11/18/2024 mammogram, 08/07/2023 mammogram, 03/20/2022 mammogram, 06/12/2020 mammogram, and 12/16/2018 mammogram - [facility]. Color flow and real-time ultrasound of the right breast 11 o'clock, and axilla regions were performed. Enriquez scale images of the real-time examination were reviewed. There is a 0.9 cm x 0.8 cm x 0.6 cm oval mass with a microlobulated margin in the right breast at 11 o'clock middle depth 3 cm from the nipple. This oval mass is hypoechoic. This correlates with mammography findings. There are calcifications within the mass. Color flow imaging demonstrates that there is vascularity present. No significant abnormalities were seen sonographically in the right axilla. IMPRESSION: SUSPICIOUS The 0.9 cm x 0.8 cm x 0.6 cm oval mass in the right breast has a differential diagnosis of a fibroadenoma and is at a low suspicion for malignancy. An ultrasound guided biopsy is recommended. No enlarged right axillary lymph nodes. Exam findings were discussed with the patient. Option for short-term imaging surveillance was discussed. This exam was interpreted at Station ID: [id number]. Electronically Signed By: Henok Boone M.D. slc/:12/21/2024 12:51:26 letter sent: Biopsy Required ACR BI-RADS Category 4A: Suspicious
--- NOTE | 2024-12-21 09:53 | DI.MG.S_ITS ---
UNILATERAL RIGHT DIGITAL DIAGNOSTIC MAMMOGRAM 3D/2D WITH ADDITIONAL VIEWS: 12/21/2024 CLINICAL: Additional evaluation requested from prior study. Comparison is made to exams dated: 11/18/2024 mammogram, 08/07/2023 mammogram, and 03/20/2022 mammogram - [facility]. The breasts are heterogeneously dense, which may obscure small masses (category c / 51-75% glandular tissue). There is a 0.5 cm oval mass with punctate calcifications in the right breast central to the nipple middle depth. This is more prominent. No other significant masses or calcifications are seen in the breast. IMPRESSION: INCOMPLETE: NEED ADDITIONAL IMAGING EVALUATION The 0.5 cm oval mass in the right breast is indeterminate. A targeted ultrasound is recommended and will immediately follow. Based on the Tyrer Cuzick model (a risk assessment model) the patient's lifetime risk is 3.8% and her 10 year risk is 0.0%. According to the ACR, ACS, and NCCN guidelines, an annual breast MRI exam along with mammogram is recommended if the patient's lifetime risk is 20% or greater. This exam was interpreted at Station ID: [id number]. NOTE: For mammograms, a report in lay terms will be sent to the patient. Approximately 15% of breast malignancies will not be visualized mammographically. In the management of a palpable breast mass, a negative mammogram must not discourage biopsy of a clinically suspicious lesion. Electronically Signed By: Henok Boone M.D. slc/:12/21/2024 11:55:22 letter sent: Additional Imaging Needed ACR BI-RADS Category 0: Incomplete: Need Additional Imaging Evaluation
== END ==
PROVIDERS: PCP Internal Medicine; Referring Provider Internal Medicine; Visit Provider Internal Medicine
DX: R92.8 Other abnormal and inconclusive findings on diagnostic imaging of breast (principal); N63.11 Unspecified lump in the right breast, upper outer quadrant
CPT/HCPCS: 76642; 77065; G0279

== ENCOUNTER → 2024-12-28 12:19 | Outpatient (CLI) | payer MEDICARE, OTHER, SELFPAY ==
[2019-09-01 16:04] VITALS: BMI 192.0
--- NOTE | 2024-12-28 12:20 | DI.RAD.S_ITS ---
PROCEDURE: XR CHEST 2V INDICATIONS: cough, COPD flare TECHNIQUE: 2 views of the chest were acquired. COMPARISON: [facility], CR, XR CHEST 1V, 01/23/2024, 17:02. [facility], CR, XR CHEST 2V, 12/09/2019, 17:31. FINDINGS: Surgical changes and devices: None. Lungs and pleura: Perihilar and interstitial prominence. No pleural effusions or pneumothorax. Mediastinum: Mediastinal contours are normal. Heart size is normal. Bones and chest wall: No suspicious bony abnormalities. Soft tissues appear unremarkable. IMPRESSION: Perihilar and interstitial prominence which may represent an atypical or viral infection. Dictated by: Jones Sheikh M.D. on 12/28/2024 at 15:56 Approved by: Jones Sheikh M.D. on 12/28/2024 at 15:56
== END ==
PROVIDERS: PCP Internal Medicine; Referring Provider Internal Medicine; Visit Provider Internal Medicine
DX: J44.9 Chronic obstructive pulmonary disease, unspecified (principal)
CPT/HCPCS: 71046

== ENCOUNTER → 2025-01-12 | Outpatient (CLI) | payer MEDICARE, OTHER, SELFPAY ==
[2019-09-01 16:04] VITALS: BMI 192.0
--- NOTE | 2025-01-12 | PATH_ITS ---
[facility] Accession Number: [id number] No. of containers..01 Tissue . 01 Material submitted: . breast - RT BREAST MASS 11:00 3CMFN . 01 Diagnosis: RIGHT BREAST MASS 11 O'CLOCK, 3 CM FROM NIPPLE: Benign breast parenchyma with fibroadenomatoid changes and rare microcalcifications. Negative for epithelial atypia or malignancy. MRV 01/13/2025 1542 Local . 01 Comment: This case is also reviewed by Dr. May Marinelli (Julie), who agrees with the interpretation. . 01 Electronically signed: . Kimber Longoria MD, Pathologist NPI- [id number] . 01 Gross description: . Received is one formalin-filled container labeled with the patient's name labeled Rt. breast bx. The specimen is received with plastic filter in container and sample loose in container, and consists of multiple yellow-guerra to guerra-porras pieces of soft tissue which range in size from 0.4 x 0.2 x 0.2 cm to 0.8 x 0.4 x 0.4 cm. All fragments are totally submitted in cassettes A1-A2. . The specimen was removed on 01/12/2025. Possible collection time per container 2:16 p.m. Time in formalin not provided. Cold ischemic time cannot be calculated. Total fixation time approximately 13 hours. (DC:[id number]) /MORRO 01/13/2025 0631 Local . 01 Pathologist provided ICD-10: N63.10 . 01 CPT . 604796 Performed at: [address] [facility] [address], [place], [place] [id number] MD Zaid Ortega MD Phone: [phone]
--- NOTE | 2025-01-12 13:50 | DI.MG.S_ITS ---
MM diagnostic mammo [id number]: 01/12/2025. BI-RADS: None CLINICAL: 74-year old female for right diagnostic mammogram that is a recall from screening, bilateral, digital, tomosynthesis, w/mammo cad on 11/18/2024. Tyrer-Cuzick lifetime risk of 3.4%. No personal or first-degree family history of breast cancer. The patient had a prior right breast biopsy. PRIOR EXAMS 11/18/2024, 08/07/2023, 03/20/2022, 06/12/2020, 12/16/2018, 10/13/2017, 09/13/2016, 09/12/2015. MAMMOGRAPHY TECHNIQUE: 2D and 3D (tomosynthesis) digital mammographic views obtained, with additional images as needed for full coverage. Current study was also evaluated with a Computer Aided Detection (CAD) system. DENSITY Right: C. The breasts are heterogeneously dense, which may obscure small masses. MAMMOGRAPHY FINDINGS Right: Upper Outer at 11:00, Middle depth: There is a biopsy marker present. Marker is located posterior to margin of target. IMPRESSION: Right * Biopsy marker present. OVERALL ASSESSMENT CATEGORY BI-RADS None: This exam requires no BI-RADS. ELECTRONICALLY SIGNED: Rosalio Carranza M.D. on 01/12/2025 at 03:11:24 PM PT Interpreting Station ID: [id number]
--- NOTE | 2025-01-12 13:50 | DI.US.S_ITS ---
PROCEDURE: US BX BREAST PERC W VAC DEVICE COMPARISON: None. INDICATIONS: MASS RIGHT BREAST FINDINGS: IMPRESSION: Dictated by: Rosalio Carranza M.D. on 01/12/2025 at 14:56 Approved by: Rosalio Carranza M.D. on 01/12/2025 at 15:05
--- NOTE | 2025-01-12 13:56 | DI.US.S_ITS ---
Patient Name: AMADO WILL date: 1950 Sex: F Attending Physician: Anastacio Indications: Date: 01/18/2025 09:11 At the request of: RAMIREZ VIERA Procedure: US bx breast perc w vac device US bx breast perc w vac device: 01/12/2025. Rad-Path Correlation: Concordant Pathology Classification: Benign SEE ADDENDUM AT END OF THIS REPORT SEE UPDATED PATHOLOGY AT END OF THIS REPORT CLINICAL: 74-year old female for right procedure. Tyrer-Cuzick lifetime risk of 2.4%. No personal or first-degree family history of breast cancer. The patient had a prior right breast biopsy. PRIOR EXAMS 11/18/2024, 08/07/2023, 03/20/2022, 06/12/2020, 12/16/2018, 10/13/2017, 09/13/2016, 09/12/2015. CONSENT Risks including but not limited to bleeding and infection, benefits and alternatives were discussed with the patient. The patients agreed to the procedure, reported no allergy to local anesthesia and signed the consent form. ROUTINE Right: Patient positioned in the supine or supine-oblique position, prepped and draped in the usual manner using sterile technique. TECHNIQUE Right Breast: Upper Outer at 11:00, 3 cm from nipple: Procedure: Ultrasound-guided vacuum-assisted biopsy of a mass. Device: Vacuum-assisted biopsy instrument. BD EleVation(TM) 12g. Approach: Lateral. Continued Report - Page 2 of 3 Patient Name: AMADO WILL date: 1950 Sex: F Attending Physician: Anastacio Indications: Date: 01/18/2025 09:11 At the request of: RAMRIEZ VIERA Procedure: US bx breast perc w vac device Anesthesia: Local anesthesia obtained using 1%-lidocaine with epinephrine. Skin Entry: Incision with #11 blade. Passes: 3. Post-procedure imaging: Post-procedure mammogram confirms in target location. Rad/Path Correlation: Pending receipt of pathology report. Conclusion: Ultrasound-guided Vacuum-assisted biopsy with post-procedure mammogram, Right Breast: Upper Outer at 11:00, 3 cm from nipple COMPLICATIONS: No complications were encountered while the patient was in our department. DISPOSITION The patient left our department in good condition with aftercare instructions and urged to contact us should any problem arise. SUMMARY *NOTE - this mass does NOT correspond to the mammographic finding described on screening mammogram and diagnostic mammogram central to the nipple. It is at a different location and is not the same size. Rad-path correlation pending with further recommendations depending on results. Right Breast: Upper Outer at 11:00, 3 cm from nipple: Ultrasound-guided vacuum- assisted biopsy of a mass. PATHOLOGY Right Breast: Upper Outer at 11:00, 3 cm from nipple: Radiologist-Pathologist Correlation: Pending receipt of pathology report. SEE UPDATED RECOMMENDATIONS IN ADDENDUM AT END OF THIS REPORT ELECTRONICALLY SIGNED: Rosalio Carranza M.D. on 01/12/2025 at 03:10:08 PM PT ADDENDA: * ADDENDUM: This addendum is to reflect Radiology-Pathology correlation as follows: RAD-PATH CORRELATION: Concordant. Rad-Path Correlation changed from Pending. ELECTRONICALLY SIGNED: Jenny Wallis M.D. on 01/18/2025 at 09:11:31 AM. UPDATED PATHOLOGY Right Breast: Upper Outer at 11:00, 3 cm from nipple: Benign Classification: Fibroadenomatoid change and rare microcalcifications. . Continued Report - Page 3 of 3 Patient Name: AMADO WILL date: 1950 Sex: F Attending Physician: Anastacio Indications: Date: 01/18/2025 09:11 At the request of: RAMIREZ VIERA Procedure: US bx breast perc w vac device Radiologist-Pathologist Correlation: Concordant. UPDATED RECOMMENDATIONS Right * Six month followup with diagnostic mammography and diagnostic ultrasound. Ultrasound to be performed only if needed. Interpreting Station ID: [id number]
== END ==
LOC: US 13:43
PROVIDERS: PCP Internal Medicine; Referring Provider Internal Medicine; Visit Provider Internal Medicine
DX: N63.11 Unspecified lump in the right breast, upper outer quadrant (principal); N64.89 Other specified disorders of breast; N63.41 Unspecified lump in right breast, subareolar; R92.331 Mammographic heterogeneous density, right breast
CPT/HCPCS: 19083; 77065

== ENCOUNTER → 2025-05-25 17:03 | Outpatient (CLI) | payer MEDICARE, OTHER, SELFPAY ==
[2019-09-01 16:04] VITALS: BMI 192.0
[2025-05-25 18:22] LABS: Hematocrit 36.9 % (36-46); Hemoglobin 12.4 g/dL (12.0-16.0); Mean Corpuscular HGB Conc 33.6 % (30-36); Mean Corpuscular Hemoglobin 29.7 PG (26-34); Mean Corpuscular Volume 88.6 fL (80-100); Platelet Count 309 X10^3/uL (150-400)
[2025-05-25 18:23] LABS: Blood Urea Nitrogen 28 mg/dL (7-17); Calcium 9.5 mg/dL (8.4-10.2); Carbon Dioxide 29 mmol/L (22-32); Chloride 100 mmol/L (98-107); Estimated Glomerular Filt Rate > 60 mL/min (>60); Glucose 87 mg/dL (70-99); HEMOLYSIS < 15 (0-50); Potassium 4.9 mmol/L (3.4-5.1); Sodium 134 mmol/L (137-145)
[2025-05-25 18:55] LABS: TSH w/ Reflex to FT4 3.10 uIU/mL (0.47-4.68)
[2025-05-25 19:14] LABS: Vitamin B12 Reflex MMA if <400 880 pg/mL (239-931)
== END ==
PROVIDERS: PCP Internal Medicine; Referring Provider Internal Medicine; Visit Provider Internal Medicine
DX: E53.8 Deficiency of other specified B group vitamins (principal); E78.2 Mixed hyperlipidemia
CPT/HCPCS: 36415; 80048; 82607; 84443; 85027

== ENCOUNTER → 2025-07-18 09:51 | Outpatient (CLI) | payer MEDICARE, OTHER, SELFPAY ==
[2019-09-01 16:04] VITALS: BMI 192.0
--- NOTE | 2025-07-18 09:53 | DI.MG.S_ITS ---
MM diagnostic mammo unilat RT, US breast RT limited: 07/18/2025 BI-RADS: 2 CLINICAL: 75-year old female for right diagnostic mammogram and right diagnostic breast ultrasound. The patient presents for 6 month follow up after biopsy. Tyrer- Cuzick lifetime risk of 3.1%. No personal or first-degree family history of breast cancer. The patient had a prior right breast biopsy. PRIOR EXAMS 01/12/2025, 11/18/2024, 08/07/2023, 03/20/2022, 06/12/2020. MAMMOGRAPHY TECHNIQUE: 2D and 3D (tomosynthesis) digital mammographic views obtained, with additional images as needed for full coverage. Current study was also evaluated with a Computer Aided Detection (CAD) system. ULTRASOUND TECHNIQUE TARGETED Right Breast Ultrasound: Real-time ultrasound exam was performed focused to area of clinical and/or imaging concern. Real-time guerra scale and color doppler imaging of the area of clinical interest was performed with image documentation. DENSITY Right: C. The breast is heterogeneously dense, which may obscure small masses. MAMMOGRAPHY FINDINGS Right (finding-1): Upper Outer at 11:00, Middle depth: Correlating with area of biopsy and prior imaging concern there is a mass present that is unchanged in size and appearance. ULTRASOUND FINDINGS Right (finding-1): Upper Outer at 11:00, 3 cm from nipple, measuring 0.7 x 0.7 x 0.9 cm: Correlating with area of biopsy and prior imaging concern there is a hypoechoic mass. The mass is unchanged in size and appearance. Doppler shows no vascularity. This is associated with benign pathology. IMPRESSION: Right * No evidence of malignancy with benign findings. RECOMMENDATIONS Bilateral * Annual screening mammography (due October 2025). COMMENTS: Findings and recommendations were conveyed to the patient during today's evaluation. OVERALL ASSESSMENT CATEGORY BI-RADS-2: Benign. The [employer] recommends annual screening mammography beginning at age 40 for women with average risk of breast cancer. ELECTRONICALLY SIGNED: Ivette Francisco M.D. on 07/18/2025 at 12:29:07 PM PT Interpreting Station ID: [id number]
== END ==
PROVIDERS: PCP Internal Medicine; Referring Provider Internal Medicine; Visit Provider Internal Medicine
DX: R92.8 Other abnormal and inconclusive findings on diagnostic imaging of breast (principal); R92.331 Mammographic heterogeneous density, right breast
CPT/HCPCS: 76642; 77065; G0279

== ENCOUNTER → 2025-10-04 09:06 | Outpatient (CLI) | payer MEDICARE, OTHER, SELFPAY ==
[2019-09-01 16:04] VITALS: BMI 192.0
[2025-10-04 10:08] LABS: Hematocrit 35.8 % (36-46); Hemoglobin 12.1 g/dL (12.0-16.0); Mean Corpuscular HGB Conc 33.8 % (30-36); Mean Corpuscular Hemoglobin 29.3 PG (26-34); Mean Corpuscular Volume 86.7 fL (80-100); Platelet Count 307 X10^3/uL (150-400)
[2025-10-04 10:37] LABS: Alanine Aminotransferase 16 IU/L (<35); Albumin 3.8 g/dL (3.5-5.0); Albumin Globulin Ratio 1.4 (1.0-2.8); Alkaline Phosphatase 67 U/L (38-126); Blood Urea Nitrogen 27 mg/dL (7-17); Calcium 9.1 mg/dL (8.4-10.2); Carbon Dioxide 25 mmol/L (22-32); Chloride 103 mmol/L (98-107); Cholesterol 183 mg/dL (140-199); Estimated Glomerular Filt Rate > 60 mL/min (>60); Globulin 2.8 g/dL (1.7-4.1); Glucose 92 mg/dL (70-99); HDL Cholesterol 54 mg/dL (40-60); HEMOLYSIS < 15 (0-50); Potassium 4.8 mmol/L (3.4-5.1); Sodium 135 mmol/L (137-145); Total Protein 6.6 g/dL (6.3-8.2); Triglycerides 114 mg/dL (35-150)
[2025-10-04 11:01] LABS: TSH w/ Reflex to FT4 1.95 uIU/mL (0.47-4.68)
== END ==
PROVIDERS: Family Provider Internal Medicine; PCP Internal Medicine; Referring Provider Internal Medicine; Visit Provider Internal Medicine
DX: J44.1 Chronic obstructive pulmonary disease with (acute) exacerbation (principal); E78.2 Mixed hyperlipidemia; I10 Essential (primary) hypertension
CPT/HCPCS: 36415; 80053; 80061; 84443; 85027

== ENCOUNTER → 2025-10-04 10:04 | Outpatient (CLI) | payer MEDICARE, OTHER, SELFPAY ==
[2019-09-01 16:04] VITALS: BMI 192.0
--- NOTE | 2025-10-04 10:06 | DI.RAD.S_ITS ---
PROCEDURE: XR CHEST 2V INDICATIONS: dyspnea TECHNIQUE: 2 views of the chest were acquired. COMPARISON: [facility], CR, XR CHEST 2V, 12/28/2024, 12:38. [facility], CR, XR CHEST 1V, 01/23/2024, 17:02. FINDINGS: Surgical changes and devices: None. Lungs and pleura: Small right pleural effusion. Peribronchial cuffing. Mediastinum: Mediastinal contours are normal. Heart size is normal. Bones and chest wall: No suspicious bony abnormalities. Soft tissues appear unremarkable. IMPRESSION: Peribronchial cuffing, typically indicating infectious or inflammatory bronchitis. Small right pleural effusion. Dictated by: Conor Mcnulty M.D. on 10/04/2025 at 23:15 Approved by: Conor Mcnulty M.D. on 10/04/2025 at 23:15
== END ==
LOC: RAD 10:06
PROVIDERS: Family Provider Internal Medicine; PCP Internal Medicine; Referring Provider Internal Medicine; Visit Provider Internal Medicine
DX: J90 Pleural effusion, not elsewhere classified (principal); J44.1 Chronic obstructive pulmonary disease with (acute) exacerbation; I10 Essential (primary) hypertension; E78.2 Mixed hyperlipidemia
CPT/HCPCS: 36415; 71046; 80053; 80061; 84443; 85027